=== PATIENT | male | born 1995 | race Caucasian/White ===

== ENCOUNTER 2017-10-10 06:19 | Emergency (ER) | payer MEDICARE, OTHER ==
[~2017-10-10] VITALS: Ht 180.3 cm; Wt 90.7 kg
--- OUTSIDE RECORDS SUMMARY | ~2017-10-10 | XMS ---
Demographics + + + | Address | [address] | | | [address] | | | [place] [address] | + + + | Preferred Language | Unknown | + + + | Marital Status | Unknown | + + + | Buddhism Affiliation | Unknown | + + + | Race | Unknown | + + + | Ethnic Group | Unknown | + + + Author + + + | Author | [facility] | + + + | Organization | [facility] | + + + | Address | 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 | | | Active | 74395785 | | | myelitis | | | | | | +---------+ + + +--------+ + + | Problem | Depression | | F32.9 | | Active | 143112280 | +---------+ + + +--------+ + + | 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 | 495221750 | | | my | | | | | | | | dependence | | | | | | +---------+ + + +--------+ + + | Problem | Diastolic | I10 | | | Active | 32644084 | | | hypertensi | | | | | | | | on | | | | | | +---------+ + + +--------+ + + | Problem | Dysautonom | G90.9 | | | Active | 35025726 | | | ia | | | | | | +---------+ + + +--------+ + + | Problem | ADHD | F90.9 | | | Active | 617006002 | | | (attention | | | | | | | | deficit | | | | | | | | hyperactiv | | | | | | | | ity | | | | | | | | disorder) | | | | | | +---------+ + + +--------+ + + | Problem | Marijuana | F12.10 | | | Active | 08771084 | | | use | | | | | | +---------+ + + +--------+ + + | Problem | Back pain | | M54.9 | | Active | 094354841 | +---------+ + + +--------+ + + | Problem | HTN | | I10 | | Active | 58441758 | | | (hypertens | | | | | | | | ion) | | | | | | +---------+ + + +--------+ + + | 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 | | | Active | 158451357 | +---------+ + + +--------+ + + | Problem | TRACHEOSTO | V44.0 | | | Active | 195389507 | | | MY STATUS | | | | | | +---------+ + + +--------+ + + | Problem | Previous | Z98.89 | | | Active | | | | back | | | | | | | | surgery | | | | | | +---------+ + + +--------+ + + | Problem | OTH NSP | 790.99 | | | Active | 75033225 | | | FINDING | | | | | | | | BLOOD | | | | | | +---------+ + + +--------+ + + | Problem | History of | Z87.898 | | | Active | | | | coma | | | | | | +---------+ + + +--------+ + + ALLERGIES Unknown Allergies SOCIAL HISTORY No smoking Hx information available PLAN OF CARE VITAL SIGNS MEDICATIONS Unknown Medications RESULTS No Results PROCEDURES No Known procedures IMMUNIZATIONS No Known Immunizations"
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
--- OUTSIDE RECORDS SUMMARY | ~2017-10-10 | XMS ---
Demographics + + + | Address | [address] | | | [address] | | | [place] [address] | + + + | Preferred Language | Unknown | + + + | Marital Status | Unknown | + + + | Islam Affiliation | Unknown | + + + | Race | Unknown | + + + | Ethnic Group | Unknown | + + + Author + + + | Author | [facility] | + + + | Organization | [facility] | + + + | Address | [address] | | | [place] [address] | + + + | Phone | | + + + Care Team Providers + + + + | Care Page Designer Name | Role | Phone | + + + + Unavailable | Unavailable | + + + + PROBLEMS +---------+ + + +--------+ + + | Type | Condition | ICD9-CM | [id number] | Onset | Condition | SNOMED | | | | Code | Code | Dates | Status | Code | +---------+ + + +--------+ + + | Problem | Depression | | F32.9 | | Active | [id number] | +---------+ + + +--------+ + + | Problem | ADHD | F90.9 | | | Active | 788756670 | | | (attention | | | | | | | | deficit | | | | | | | | hyperactiv | | | | | | | | ity | | | | | | | | disorder) | | | | | | +---------+ + + +--------+ + + | 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 | | | Active | 62962015 | | | myelitis | | | | | | +---------+ + + +--------+ + + | Problem | Low | E55.9 | | | Active | 06474180 | | | vitamin D | | | | | | | | level | | | | | | +---------+ + + +--------+ + + | 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 | 104836085 | | | my | | | | | | | | dependence | | | | | | +---------+ + + +--------+ + + | Problem | Back pain | | M54.9 | | Active | 360897962 | +---------+ + + +--------+ + + | Problem | Dysautonom | G90.9 | | | Active | 80741660 | | | ia | | | | | | +---------+ + + +--------+ + + | Problem | Diastolic | I10 | | | Active | 59433005 | | | hypertensi | | | | | | | | on | | | | | | +---------+ + + +--------+ + + | Problem | Marijuana | F12.10 | | | Active | 99689459 | | | use | | | | | | +---------+ + + +--------+ + + | Problem | TRACHEOSTO | V44.0 | | | Active | 925203530 | | | MY STATUS | | | | | | +---------+ + + +--------+ + + | 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 | | | Active | 959732930 | +---------+ + + +--------+ + + | Problem | Previous | Z98.89 | | | Active | | | | back | | | | | | | | surgery | | | | | | +---------+ + + +--------+ + + | Problem | OTH NSPCF | 790.99 | | | Active | 79699058 | | | FINDING | | | [...] | | I10 | | Active | 53066246 | | | (hypertens | | | | | | | | ion) | | | | | | +---------+ + + +--------+ + + | Problem | Anxiety | | F41.9 | | Active | 10168344 | +---------+ + + +--------+ + + ALLERGIES Unknown Allergies SOCIAL HISTORY No smoking Hx information available PLAN OF CARE VITAL SIGNS MEDICATIONS Unknown Medications RESULTS No Results PROCEDURES No Known procedures IMMUNIZATIONS No Known Immunizations"
--- OUTSIDE RECORDS SUMMARY | ~2017-10-10 | XMS ---
Demographics + + + | Address | [address] | | | [address] | | | [place] [address] | + + + | Preferred Language | Unknown | + + + | Marital Status | Unknown | + + + | Scientologist Affiliation | Unknown | + + + | Race | Unknown | + + + | Ethnic Group | Unknown | + + + Author + + + | Author | [facility] | + + + | Organization | [facility] | + + + | Address | 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 | 487975280 | | | my | | | | | | | | dependence | | | | | | +---------+ + + +--------+ + + | Problem | Marijuana | F12.10 | | | Active | 62948568 | | | use | | | | | | +---------+ + + +--------+ + + | Problem | ADHD | F90.9 | | | Active | 208974276 | | | (attention | | | | | | | | deficit | | | | | | | | hyperactiv | | | | | | | | ity | | | | | | | | disorder) | | | | | | +---------+ + + +--------+ + + | 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 | | | Active | 57179797 | | | myelitis | | | | | | +---------+ + + +--------+ + + | Problem | Back pain | | M54.9 | | Active | 042805297 | +---------+ + + +--------+ + + | Problem | Dysautonom | G90.9 | | | Active | 79704031 | | | ia | | | | | | +---------+ + + +--------+ + + | Problem | OTH NSPCF | 790.99 | | | Active | 74966077 | | | FINDING | | | | | | | | BLOOD | | | | | | +---------+ + + +--------+ + + | Problem | HTN | | I10 | | Active | 26365783 | | | (hypertens | | | | | | | | ion) | | | | | | +---------+ + + +--------+ + + | 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 | | | Active | 394644640 | +---------+ + + +--------+ + + | Problem | TRACHEOSTO | V44.0 | | | Active | 784107447 | | | MY STATUS | | [...] Wellbutrin | adverse | Drug Allergy | Dec, | Active | | | reaction | | | | + + + + +--------+ | environmental | Unknown | Non Drug | Dec, | Active | | | | Allergy | | | + + + + +--------+ | bee stings | Unknown | Non Drug | Dec, | Active | | | | Allergy | | | + + + + +--------+ SOCIAL HISTORY No smoking Hx information available PLAN OF CARE + +---------+ | Activity | Details | + +---------+ +---+ | | +---+ + + + | Follow Up | prn Reason:null | + + + VITAL SIGNS + + + + | Height | 70 in | 2017-01-02 | + + + + | Weight | 234 lbs | 2017-01-02 | + + + + | BMI | 33.57 kg/m2 | 2017-01-02 | + + + + | Temperature | 98.5 degrees Fahrenheit | 2017-01-02 | + + + + | Heart Rate | 74 /min | 2017-01-02 | + + + + | Blood pressure systolic | 140 mm Hg | 2017-01-02 | + + + + | Blood pressure diastolic | 94 mm Hg | 2017-01-02 | + + + + MEDICATIONS + [...] Orally | 1 | 24h | 04 May, | | 30 days | Active | [...] + +--------+ | Amoxicil | Orally | 11 mL | 12h | 05 Sam, | 15 Sam, | 10 days | Active | | kalyani-Pot | BID | | | 2017 | 2017 | | | | Clavulan | | | | | | | | | ate | | | | | | | | | 400-57 | | | | | | | | | MG/5ML | | | | | | | [...] 90 days | Active | | il 10 MG | Once a | | | 2016 | | | | | | day [...] +--------+ RESULTS No Results PROCEDURES + + + + + | Procedure | Date Ordered | Related Diagnosis | Body Site | + + + + + | Office Visit, Est | January 02, 2017 | | | | Pt., Level 3 | | | | + + + + + | [facility] MED/CURRENT | January 02, 2017 | | | | MED MERGE | | | | + + + + + | DOC MEDS VERIFIED | January 02, 2017 | | | | W/PT OR RE | | | | + + + + + IMMUNIZATIONS No Known Immunizations"
--- OUTSIDE RECORDS SUMMARY | ~2017-10-10 | XMS ---
Demographics + + + | Address | [address] | | | [address] | | | [place] [address] | + + + | Preferred Language | Unknown | + + + | Marital Status | Unknown | + + + | Sikh Affiliation | Unknown | + + + | Race | Unknown | + + + | Ethnic Group | Unknown | + + + Author + + + | Author | [facility] | + + + | Organization | [facility] | + + + | Address | [address] | | | [place] [address] | + + + | Phone | | + + + Care Team Providers + + + + | Care Hop Picker Name | Role | Phone | + + + + Unavailable | Unavailable | + + + + PROBLEMS +---------+ + + +--------+ + + | Type | Condition | ICD9-CM | [id number] | Onset | Condition | SNOMED | | | | Code | Code | Dates | Status | Code | +---------+ + + +--------+ + + | Problem | Depression | | F32.9 | | Active | [id number] | +---------+ + + +--------+ + + | Problem | ADHD | F90.9 | | | Active | 214029950 | | | (attention | | | | | | | | deficit | | | | | | | | hyperactiv | | | | | | | | ity | | | | | | | | disorder) | | | | | | +---------+ + + +--------+ + + | 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 | | | Active | 96143093 | | | myelitis | | | | | | +---------+ + + +--------+ + + | Problem | Low | E55.9 | | | Active | 34088710 | | | vitamin D | | | | | | | | level | | | | | | +---------+ + + +--------+ + + | 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 | 212790817 | | | my | | | | | | | | dependence | | | | | | +---------+ + + +--------+ + + | Problem | Back pain | | M54.9 | | Active | 558269871 | +---------+ + + +--------+ + + | Problem | Dysautonom | G90.9 | | | Active | 12455648 | | | ia | | | | | | +---------+ + + +--------+ + + | Problem | Diastolic | I10 | | | Active | 36865648 | | | hypertensi | | | | | | | | on | | | | | | +---------+ + + +--------+ + + | Problem | Marijuana | F12.10 | | | Active | 75552052 | | | use | | | | | | +---------+ + + +--------+ + + | Problem | TRACHEOSTO | V44.0 | | | Active | 811075539 | | | MY STATUS | | | | | | +---------+ + + +--------+ + + | 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 | | | Active | 724831111 | +---------+ + + +--------+ + + | Problem | Previous | Z98.89 | | | Active | | | | back | | | | | | | | surgery | | | | | | +---------+ + + +--------+ + + | Problem | OTH NSPCF | 790.99 | | | Active | 52511771 | | | FINDING | | | [...] | | I10 | | Active | 53845658 | | | (hypertens | | | | | | | | ion) | | | | | | +---------+ + + +--------+ + + | Problem | Anxiety | | F41.9 | | Active | 16776977 | +---------+ + + +--------+ + + ALLERGIES + + + + +--------+ | Substance | Reaction | Event Type | Date | Status | + + + + +--------+ | Wellbutrin | adverse | Drug Allergy | Feb, | Active | | | reaction | | | | + + + + +--------+ | environmental | Unknown | Non Drug | Feb, | Active | | | | Allergy | | | + + + + +--------+ | bee stings | Unknown | Non Drug | Feb, | Active | | | | Allergy | | | + + + + +--------+ SOCIAL HISTORY No smoking Hx information available PLAN OF CARE + +---------+ | Activity | Details | + +---------+ +---+ | | +---+ + + + | Follow Up | 2 Months Reason:null | + + + VITAL SIGNS + + + + | Height | 70 in | 2017-03-13 | + + + + | Weight | 219.6 lbs | 2017-03-13 | + + + + | BMI | 31.51 kg/m2 | 2017-03-13 | + + + + | Temperature | 97.6 degrees Fahrenheit | 2017-03-13 | + + + + | Heart Rate | 75 /min | 2017-03-13 | + + + + | Blood pressure systolic | 125 mm Hg | 2017-03-13 | + + + + | Blood pressure diastolic | 98 mm Hg | 2017-03-13 | + + + + MEDICATIONS + [...] HCl | daily | directed | | 2015 | | day(s) | | | 300 [...] Orally | 1 tablet | 24h | 14 Feb, | | 30 | Active | | il-Muir | Once a | | | 2016 | | day(s) | | | chloroth | day | | | | | | | | iazide | | | | | | | | | 20-12.5 | | | | | | [...] | 1 tablet | 24h | 26 Oct, | | 90 days | Active | [...] + + + + + +--------+ RESULTS + +--------+ + + | Name | Result | Date | Reference Range | + +--------+ + + | Phosphorus, Serum | | 2017-03-13 | | + +--------+ + + | Phosphorus, Serum | | | | + +--------+ + + | Magnesium, Serum | | 2017-03-13 | | + +--------+ + + | Magnesium, Serum | | | | + +--------+ + + | Vitamin D 25-OH | | 2017-03-13 | | + +--------+ + + | VITAMIN D 25-OH | | | | + +--------+ + + | CBC with | | 2017-03-13 | | | Differential Count | | | | + +--------+ + + PROCEDURES + + + + + | Procedure | Date Ordered | Related Diagnosis | Body Site | + + + + + | Office Visit, Est | Mar 13, 2017 | | | | Pt., Level 4 | | | | + + + + + | [facility] MED/CURRENT | Mar 13, 2017 | | | | MED MERGE | | | | + + + + + IMMUNIZATIONS No Known Immunizations"
--- OUTSIDE RECORDS SUMMARY | ~2017-10-10 | XMS ---
Demographics + + + | Address | [address] | | | [address] | | | [place] [address] | + + + | Preferred Language | Unknown | + + + | Marital Status | Unknown | + + + | Rastafari Affiliation | Unknown | + + + | Race | Unknown | + + + | Ethnic Group | Unknown | + + + Author + + + | Author | [facility] | + + + | Organization | [facility] | + + + | Address | 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 | | | | | | +---------+ + + +--------+ + + | Problem | Depression | | F32.9 | | Active | 428542691 | +---------+ + + +--------+ + + | 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 | 338087680 | | | my | | | | | | | | dependence | | | | | | +---------+ + + +--------+ + + | Problem | Diastolic | I10 | | | Active | 88792298 | | | hypertensi | | | | | | | | on | | | | | | +---------+ + + +--------+ + + | Problem | Dysautonom | G90.9 | | | Active | 59209079 | | | ia | | | | | | +---------+ + + +--------+ + + | Problem | ADHD | F90.9 | | | Active | 841299791 | | | (attention | | | | | | | | deficit | | | | | | | | hyperactiv | | | | | | | | ity | | | | | | | | disorder) | | | | | | +---------+ + + +--------+ + + | Problem | Marijuana | F12.10 | | | Active | 91234326 | | | use | | | | | | +---------+ + + +--------+ + + | Problem | Back pain | | M54.9 | | Active | 389164211 | +---------+ + + +--------+ + + | Problem | HTN | | I10 | | Active | 46108264 | | | (hypertens | | | | | | | | ion) | | | | | | +---------+ + + +--------+ + + | 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 | | | Active | 945073101 | +---------+ + + +--------+ + + | Problem | TRACHEOSTO | V44.0 | | | Active | 978850838 | | | MY STATUS | | | | | | +---------+ + + +--------+ + + | Problem | Previous | Z98.89 | | | Active | | | | back | | | | | | | | surgery | | | | | | +---------+ + + +--------+ + + | Problem | OT NSP | 790.99 | | | Active | 90618158 | | | FINDING | | | [...] + + + | Follow Up | 3 Months Reason:null | + + + VITAL SIGNS + + + + | Height | 70 in | 2017-01-09 | + + + + | Weight | 229.2 lbs | 2017-01-09 | + + + + | BMI | 32.88 kg/m2 | 2017-01-09 | + + + + | Temperature | 97.5 degrees Fahrenheit | 2017-01-09 | + + + + | Heart Rate | 81 /min | 2017-01-09 | + + + + | Blood pressure systolic | 131 mm Hg | 2017-01-09 | + + + + | Blood pressure diastolic | 91 mm Hg | 2017-01-09 | + + + + MEDICATIONS + [...] + | Office Visit, Est | January 09, 2017 | | | | Pt., Level 3 | | | | + + + + + | [facility] MED/CURRENT | January 09, 2017 | | | | MED MERGE | | | | + + + + + IMMUNIZATIONS No Known Immunizations"
--- OUTSIDE RECORDS SUMMARY | ~2017-10-10 | XMS ---
Demographics + + + | Address | [address] | | | [address] | | | [place] [address] | + + + | Preferred Language | Unknown | + + + | Marital Status | Unknown | + + + | Zoroastrianism Affiliation | Unknown | + + + | Race | Unknown | + + + | Ethnic Group | Unknown | + + + Author + + + | Author | [facility] | + + + | Organization | [facility] | + + + | Address | [address] | | | [place] [address] | + + + | Phone | | + + + Care Team Providers + + + + | Care Health Analyst Name | Role | Phone | + + + + Unavailable | Unavailable | + + + + PROBLEMS +---------+ + + +--------+ + + | Type | Condition | ICD9-CM | [id number] | Onset | Condition | SNOMED | | | | Code | Code | Dates | Status | Code | +---------+ + + +--------+ + + | Problem | Depression | | F32.9 | | Active | [id number] | +---------+ + + +--------+ + + | Problem | ADHD | F90.9 | | | Active | 921451498 | | | (attention | | | | | | | | deficit | | | | | | | | hyperactiv | | | | | | | | ity | | | | | | | | disorder) | | | | | | +---------+ + + +--------+ + + | 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 | | | Active | 55811469 | | | myelitis | | | | | | +---------+ + + +--------+ + + | Problem | Low | E55.9 | | | Active | 41354201 | | | vitamin D | | | | | | | | level | | | | | | +---------+ + + +--------+ + + | 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 | 723588479 | | | my | | | | | | | | dependence | | | | | | +---------+ + + +--------+ + + | Problem | Back pain | | M54.9 | | Active | 320282354 | +---------+ + + +--------+ + + | Problem | Dysautonom | G90.9 | | | Active | 47960058 | | | ia | | | | | | +---------+ + + +--------+ + + | Problem | Diastolic | I10 | | | Active | 02320070 | | | hypertensi | | | | | | | | on | | | | | | +---------+ + + +--------+ + + | Problem | Marijuana | F12.10 | | | Active | 61377360 | | | use | | | | | | +---------+ + + +--------+ + + | Problem | TRACHEOSTO | V44.0 | | | Active | 968149581 | | | MY STATUS | | | | | | +---------+ + + +--------+ + + | 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 | | | Active | 951503795 | +---------+ + + +--------+ + + | Problem | Previous | Z98.89 | | | Active | | | | back | | | | | | | | surgery | | | | | | +---------+ + + +--------+ + + | Problem | OTH NSPCF | 790.99 | | | Active | 49852150 | | | FINDING | | | [...] | | I10 | | Active | 49538272 | | | (hypertens | | | | | | | | ion) | | | | | | +---------+ + + +--------+ + + | Problem | Anxiety | | F41.9 | | Active | 74268927 | +---------+ + + +--------+ + + ALLERGIES Unknown Allergies SOCIAL HISTORY No smoking Hx information available PLAN OF CARE VITAL SIGNS MEDICATIONS Unknown Medications RESULTS No Results PROCEDURES No Known procedures IMMUNIZATIONS No Known Immunizations"
--- OUTSIDE RECORDS SUMMARY | ~2017-10-10 | XMS ---
Demographics + + + | Address | [address] | | | [address] | | | [place] [address] | + + + | Preferred Language | Unknown | + + + | Marital Status | Unknown | + + + | Anabaptism Affiliation | Unknown | + + + | Race | Unknown | + + + | Ethnic Group | Unknown | + + + Author + + + | Author | [facility] | + + + | Organization | [facility] | + + + | Address | [address] | | | [place] [address] | + + + | Phone | | + + + Care Team Providers + + + + | Care Bicycle Racer Name | Role | Phone | + + + + Unavailable | Unavailable | + + + + PROBLEMS + + + + + + + + | Type | Condition | ICD9-CM | [id number] | Onset | Condition | SNOMED | | | | Code | Code | Dates | Status | Code | + + + + + + + + | Problem | Previous | Z98.89 | | | Active | | | | back | | | | | | | | surgery | | | | | | + + + + + + + + | Problem | Anxiety | | F41.9 | | Active | 38860770 | + + + + + + + + | Problem | History of | Z87.898 | | | Active | | | | coma | | | | | | + + + + + + + + | Problem | Marijuana | F12.10 | | | Active | 77995189 | | | use | | | | | | + + + + + + + + | Problem | Back pain | | M54.9 | | Active | 895636931 | + + + + + + + + | 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 | | | Active | 09115428 | | | myelitis | | | | | | + + + + + + + + | Problem | Depression | | F32.9 | | Active | 178381439 | + + + + + + + + | Problem | Dysautonom | G90.9 | | | Active | 81772754 | | | ia | | | | | | + + + + + + + + | Problem | ADHD | F90.9 | | | Active | 631780075 | | | (attention | | | | | | | | deficit | | | | | | | | hyperactiv | | | | | | | | ity | | | | | | | | disorder) | | | | | | + + + + + + + + | Problem | TRACHEOSTO | V44.0 | | | Active | 956534715 | | | MY STATUS | | | | | | + + + + + + + + | Problem | OTH NSPCF | 790.99 | | | Active | 05729928 | | | FINDING | | | | | | | | BLOOD | | | | | | + + + + + + + + | Problem | HTN | | I10 | | Active | 57974005 | | | (hypertens | | | | | | | | ion) | | | | | | + + + + + + + + | Assessment | HTN | | I10 | 27 Apr, | Active | 52189210 | | | (hypertens | | | 2016 | | | | | ion) | | | | | | + + + + + + + + | 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 | | | Active | 280952963 | + + + + + + + + ALLERGIES + + + + +--------+ | Substance | Reaction | Event Type | Date | Status | + + + + +--------+ | Wellbutrin | adverse | Drug Allergy | Oct, | Active | | | reaction | | | | + + + + +--------+ | environmental | Unknown | Non Drug | Oct, | Active | | | | Allergy | | | + + + + +--------+ | bee stings | Unknown | Non Drug | Oct, | Active | | | | Allergy | | | + + + + +--------+ SOCIAL HISTORY No smoking Hx information available PLAN OF CARE VITAL SIGNS + + + + | Height | 70 in | 2016-11-24 | + + + + | Weight | 234 lbs | 2016-11-24 | + + + + | BMI | 33.57 kg/m2 | 2016-11-24 | + + + + | Temperature | 97.5 degrees Fahrenheit | 2016-11-24 | + + + + | Heart Rate | 100 /min | 2016-11-24 | + + + + | Blood pressure systolic | 144 mm Hg | 2016-11-24 | + + + + | Blood pressure diastolic | 93 mm Hg | 2016-11-24 | + + + + MEDICATIONS + [...] MG | daily | capsule | | 2016 | | | | + + + [...] + + | Office Visit, Est | November 24, 2016 | | | | Pt., Level 3 | | | | + + + + + | [facility] MED/CURRENT | November 24, 2016 | | | | MED MERGE | | | | + + + + + IMMUNIZATIONS No Known Immunizations"
[2017-10-10] MEDS ORDERED: LISINOPRIL-HCT1 EACH PO (06:45)
[2017-10-10] MEDS ORDERED: HYDROCODON-ACE1 EAC8 PO (07:20)
== END 2017-10-10 07:47 | disposition home or self-care (01) ==
LOC: ED 06:19
DX: S86.912A Strain of unspecified muscle(s) and tendon(s) at lower leg level, left leg, initial encounter (principal); Z87.891 Personal history of nicotine dependence; Z88.8 Allergy status to other drugs, medicaments and biological substances; Z79.899 Other long term (current) drug therapy; X58.XXXA Exposure to other specified factors, initial encounter; Y93.41 Activity, dancing
CPT/HCPCS: 73560; 99283

== ENCOUNTER 2018-04-22 18:59 | Emergency (ER) | payer MEDICARE, OTHER ==
[~2018-04-22] VITALS: Ht 180.3 cm; Wt 82.1 kg
[~2018-04-22 18:59] MED LIST: HYDROCODON-ACE1 EAC8 PO; LISINOPRIL-HCT1 EACH PO
[2018-04-22] MEDS ORDERED: BUSPIRONE HCL5 MG PO (19:28)
[2018-04-22] MEDS ORDERED: SERTRALINE HCL50 MG PO (19:28)
[2018-04-22] MEDS ORDERED: CIPRO500 MG PO (19:28)
[2018-04-22] MEDS ORDERED: HYDROMORPHONE HC2 MG PO (19:29)
[2018-04-22] MEDS ORDERED: DULOXETINE HCL30 MG PO (19:29)
--- OUTSIDE RECORDS SUMMARY | 2018-04-22 20:31 | XMS | Clinical Summary ---
Demographics + + + | Address | [address] [facility] [address] | | | [place] [address] | + + + | Home Phone | | + + + | Preferred Language | Unknown | + + + | Marital Status | Single | + + + | Pentecostalism Affiliation | Unknown | + + + | Race | Unknown | + + + | Ethnic Group | Unknown | + + + Author + + + | Author | [facility] | + + + | Organization | [facility] | + + + | Address | Unknown | + + + | Phone | Unavailable | + + + Support + + +---------+ + | Name | Relationship | Address | Phone | + + +---------+ + | Mary Fitzgerald | ECON | Unknown | | + + +---------+ + Care Team Providers + +------+ + | Care Lumber Piler Name | Role | Phone | + +------+ + | Mark Marino MD | PP | | + +------+ + Allergies No Known Allergies Current Medications + + +---------+---------+------+------+-------+ | Prescription | Sig. | Disp. | Refills | Star | End | Statu | | | | | | t | Date | s | | | | | | Date | | | + + +---------+---------+------+------+-------+ | albuterol | Take 2.5 mg by | | | | | Activ | | (PROVENTIL) (2.5 | nebulization every 6 | | | | | e | | MG/3ML) 0.083% | (six) hours as | | | | | | | nebulizer solution | needed for Wheezing. | | | | | | + + +---------+---------+------+------+-------+ | budesonide | Take 0.5 mg by | | | | | Activ | | (PULMICORT) 0.5 | nebulization 2 (two) | | | | | e | | MG/2ML nebulizer | times daily. | | | | | | | suspension | | | | | | | + + +---------+---------+------+------+-------+ | DULoxetine | Take 60 mg by mouth | | | | | Activ | | (CYMBALTA) 30 MG | daily. | | | | | e | | capsule | | | | | | | + + +---------+---------+------+------+-------+ | EPINEPHrine 0.3 | Inject 0.3 mg into | | | | | Activ | | MG/0.3ML | the muscle as needed | | | | | e | | auto-injector | for Allergic | | | | | | | | Reaction or | | | | | | | | Anaphylaxis. | | | | | | + + +---------+---------+------+------+-------+ | | Take 1 tablet by | | | | | Activ | | lisinopril-hydrochlo | mouth daily. | | | | | e | | rothiazide | | | | | | | | (ZESTORETIC) 20-12.5 | | | | | | | | MG per tablet | | | | | | | + + +---------+---------+------+------+-------+ | loratadine | Take 10 mg by mouth | | | | | Activ | | (CLARITIN) 10 MG | daily. | | | | | e | | tablet | | | | | | | + + +---------+---------+------+------+-------+ | ranitidine | Take 300 mg by mouth | | | | | Activ | | (ZANTAC) 300 MG | daily as needed. | | | | | e | | tablet | | | | | | | + + +---------+---------+------+------+-------+ | Sodium Chloride | Inhale into the | | | | | Activ | | (HYPERSAL) 3.5 % | lungs. | | | | | e | | NEBU | | | | | | | + + +---------+---------+------+------+-------+ | ALPRAZolam (XANAX) | Take 1 tablet by | 30 | 0 | 09/1 | | Activ | | 0.5 MG tablet | mouth 3 (three) | tablet | | 2/20 | | e | | | times daily as | | | 18 | | | | | needed for Anxiety. | | | | | | + + +---------+---------+------+------+-------+ | ipratropium | Inhale 2 puffs into | 1 | 12 | 09/1 | 09/1 | Activ | | (ATROVENT HFA) 17 | the lungs 2 (two) | Inhaler | | 2/20 | 2/20 | e | | MCG/ACT inhaler | times daily. | | | 18 | 19 | | + + +---------+---------+------+------+-------+ | HYDROmorphone | Take 1 tablet by | 30 | 0 | 09/1 | | Activ | | (DILAUDID) 2 MG | mouth every 6 (six) | tablet | | 2/20 | | e | | tablet | hours as needed for | | | 18 | | | | | Pain. | | | | | | + + +---------+---------+------+------+-------+ | predniSONE | Take 2 tablets by | 20 | 0 | 03/31 | 03/31 | Expir | | (DELTASONE) 20 MG | mouth daily for 5 | tablet | | 09/19 | 02/16 | ed | | tablet | doses. | | | 18 | 18 | | + + +---------+---------+------+------+-------+ | azithromycin | Take 1 tablet by | 2 | 0 | 03/31 | 03/31 | Expir | | (ZITHROMAX) 500 MG | mouth daily for 2 | tablet | | 09/19 | 11/17 | ed | | tablet | doses. | | | 18 | 18 | | + + +---------+---------+------+------+-------+ Active Problems + + + | Problem | Noted Date | + + + | Acute respiratory failure with hypoxia (HCC) | 04/09/2018 | + + + | Pneumonia due to infectious organism | 04/09/2018 | + + + | Transverse myelitis (HCC) | | + + + | Dysautonomia | | + + + | Hemiparesis (HCC) | | + + + + + | Overview: Left arm flaccid, weaker left leg due to transverse | | myelitis | + + + +---+ | Anxiety | | + +---+ | Diaphragm paralysis | | + +---+ + + | Overview: Left | + + + +---+ | HTN (hypertension) | | + +---+ | Chronic respiratory failure (HCC) | | + +---+ | Dependence on home ventilator | | + +---+ | Scoliosis | | + +---+ | Bronchiectasis (HCC) | | + +---+ | Sleep apnea | | + +---+ Encounters +--------+ + + + + | Date | Type | Specialty | Care Team | Description | +--------+ + + + + | 04/09/ | Hospital | | Clau Wade DO | | | 2018 - | Encounter | | | | | | | | | | | 04/11/ | | | | | | 2018 | | | | | +--------+ + + + + +---+ + | | Discharge | | | Summaries | | | - | | | Darshan, | | | Fred Ching, | | | MD - | | | 04/11/2018 | | | 1:51 PM | | | PDT | | | Formatting | | | of this | | | note may be | | | different | | | from the | | | original.[facility] | | | ce: | | | 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 | | | Discharge | | | SummaryStep | | | hen M | | | Ward | | | y.o.Date of | | | Admission: | | | | | | 04/09/2018Da | | | te of | | | Discharge: | | | 04/11/18Tre | | | atment | | | Team: | | | Consulting | | | Physician: | | | Tobi | | | Chirag Fernandez | | | César, | | | MDAdmitting | | | Provider: | | | Clau | | | Mauro, | | | DOADMITTING | | | | | | DIAGNOSESPr | | | incipal | | | Problem: | | | Acute | | | respiratory | | | failure | | | with | | | hypoxia | | | (HCC)Active | | | Problems: | | | Transverse | | | myelitis | | | (HCC) | | | Dysautonomi | | | a | | | Hemiparesis | | | (HCC) | | | Anxiety | | | Diaphragm | | | paralysis | | | HTN | | | (hypertensi | | | on) | | | Chronic | | | respiratory | | | failure | | | (HCC) | | | Dependence | | | on home | | | ventilator | | | Scoliosis | | | | | | Bronchiecta | | | sis ([facility]) | | | Sleep apnea | | | Pneumonia | | | due to | | | infectious | | | organismRes | | | olved | | | Problems: | | | * No | | | resolved | | | hospital | | | problems. | | | *DISCHARGE | | | DIAGNOSESPr | | | incipal | | | Problem: | | | Acute | | | respiratory | | | failure | | | with | | | hypoxia | | | (HCC)Active | | | Problems: | | | Transverse | | | myelitis | | | (HCC) | | | Dysautonomi | | | a | | | Hemiparesis | | | (HCC) | | | Anxiety | | | Diaphragm | | | paralysis | | | HTN | | | (hypertensi | | | on) | | | Chronic | | | respiratory | | | failure | | | (HCC) | | | Dependence | | | on home | | | ventilator | | | Scoliosis | | | | | | Bronchiecta | | | sis ([facility]) | | | Sleep apnea | | | Pneumonia | | | due to | | | infectious | | | organismRes | | | olved | | | Problems: | | | * No | | | resolved | | | hospital | | | problems. | | | *BRIEF | | | HISTORY OF | | | PRESENTATIO | | | NThe | | | patient is | | | a 22 | | | y.o. male | | | with | | | significant | | | past | | | medical | | | history of | | | transverse | | | myelitis | | | with Left | | | arm | | | paresis, | | | dysautonomi | | | a, chronic | | | respiratory | | | failure | | | with long | | | term | | | tracheostom | | | y tube | | | (Bivona 5.0 | | | cuffless) | | | with home | | | ventilator | | | use at | | | night or | | | when he is | | | tired who | | | presents | | | with worse | | | wyatt | | | dyspnea. He | | | reports | | | having to | | | stay on his | | | ventilator | | | for over a | | | week with | | | increasing | | | dyspnea and | | | coughing, | | | thick | | | pulmonary | | | secretions | | | that have | | | been hard | | | to suction | | | out, 1 day | | | of chills | | | with | | | rigors, | | | mild | | | headache | | | and poor | | | appetite | | | for 2 days. | | | He | | | describes | | | some | | | burning | | | discomfort | | | in his mid | | | chest at | | | times and | | | that he was | | | suctioning | | | up a | | | little | | | blood | | | intermitten | | | tly when he | | | suctioned | | | down his | | | trachea. He | | | feels like | | | it has | | | been harder | | | to exhale | | | than get a | | | breath. He | | | was using | | | nebulized | | | albuterol | | | more at | | | home but it | | | was not | | | helping. He | | | had not | | | been on | | | steroids. | | | He briefly | | | felt a | | | little | | | better a | | | few days | | | before | | | presentatio | | | n after he | | | took a | | | Z-chaz but | | | had not | | | been able | | | to come off | | | of the | | | ventilator. | | | He | | | presented | | | [facility] ED [facility] and | | | was given 3 | | | albuterol | | | neb | | | treatments, | | | | | | azithromyci | | | n, | | | ceftriaxone | | | , Ativan, | | | fentanyl | | | and | | | Toradol.He | | | denies | | | nausea, | | | vomiting, | | | diarrhea, | | | myalgias, | | | fevers, | | | rash. He | | | reports | | | having | | | terrible | | | environment | | | al | | | allergies | | | but had not | | | noted any | | | specific | | | new | | | symptoms of | | | | | | rhinorrhea, | | | ear pain, | | | sore | | | throat. He | | | is able to | | | talk while | | | on the | | | vent. His | | | only other | | | complaint | | | on arrival | | | is of pain | | | in his back | | | "from the | | | rods in my | | | back and | | | the drive | | | over". | | | HOSPITAL | | | [facility] | | | timeline: | | | 04/09: | | | Admitted to | | | ICU and pt | | | kept on MV | | | | | | 04/10: | | | Remains in | | | ICU. Much | | | better. | | | Able to | | | tolerate | | | being of | | | the vent | | | momentarily | | | and off | | | dex. | | | | | | 04/11: | | | Pt remains | | | stable and | | | feeling | | | better | | | today on | | | minimal | | | vent | | | settings. | | | PAST | | | MEDICAL | | | HISTORYPast | | | Medical | | | History | | | Diagnosis | | | Date | | | Acid | | | reflux | | | ADHD | | | Allergic | | | rhinitis | | | | | | Anxiety | | | | | | | | | Bronchiecta | | | sis (HCC) | | | | | | Chronic | | | respiratory | | | failure | | | (HCC) | | | | | | Dependence | | | on home | | | ventilator | | | | | | Diaphragm | | | paralysis | | | Left | | | | | | Dysautonomi | | | a | | | Eczema | | | | | | | | | Environment | | | al | | | allergies | | | | | | | | | Hemiparesis | | | (HCC) | | | Left arm | | | flaccid, | | | weaker left | | | leg due to | | | transverse | | | myelitis | | | | | | HTN | | | (hypertensi | | | on) | | | Kidney | | | stones | | | 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 | | | 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 | | | | | | | | | Osteoporosi | | | s | | | Scoliosis | | | | | | Sleep | | | apnea | | | | | | Transverse | | | myelitis | | | (HCC) PAST | | | SURGICAL | | | HISTORYPast | | | Surgical | | | History | | | Procedure | | | Laterality | | | Date | | | BACK | | | SURGERY | | | Paolo | | | trisha | | | placement | | | T5-L4 | | | DIAPHRAGM | | | PLICATION | | | | | | | | | GASTROSTOMY | | | TUBE | | | PLACEMENT | | | 2007 | | | subsequentl | | | y removed | | | | | | | | | TRACHEOSTOM | | | Y TUBE | | | PLACEMENT | | | 2007 | | | DISCHARGE | | | MEDS | | | Medication | | | List START | | | taking | | | these | | | medications | | | | | | ALPRAZolam | | | 0.5 MG | | | tabletQTY: | | | 30 | | | tabletRefil | | | ls: | | | 0Commonly | | | known as: | | | XANAXTake 1 | | | tablet by | | | mouth 3 | | | (three) | | | times daily | | | as needed | | | for | | | Anxiety. | | | azithromyci | | | n 500 MG | | | tabletQTY: | | | 2 | | | tabletRefil | | | ls: | | | 0Commonly | | | known as: | | | ZITHROMAXTa | | | ke 1 tablet | | | by mouth | | | daily for 2 | | | doses. | | | HYDROmorpho | | | ne 2 MG | | | tabletQTY: | | | 30 | | | tabletRefil | | | ls: | | | 0Commonly | | | known as: | | | DILAUDIDTak | | | e 1 tablet | | | by mouth | | | every 6 | | | (six) hours | | | as needed | | | for Pain. | | | ipratropium | | | 17 MCG/ACT | | | | | | inhalerQTY: | | | 1 | | | InhalerRefi | | | lls: | | | 12Commonly | | | known as: | | | ATROVENT | | | HFAInhale 2 | | | puffs into | | | the lungs | | | 2 (two) | | | times | | | daily. | | | predniSONE | | | 20 MG | | | tabletQTY: | | | 20 | | | tabletRefil | | | ls: | | | 0Commonly | | | known as: | | | DELTASONETa | | | ke 2 | | | tablets by | | | mouth daily | | | for 5 | | | doses. | | | CONTINUE | | | taking | | | these | | | medications | | | albuterol | | | (2.5 | | | MG/3ML) | | | 0.083% | | | nebulizer | | | solutionRef | | | ills: | | | 0Commonly | | | known as: | | | PROVENTIL | | | budesonide | | | 0.5 MG/2ML | | | nebulizer | | | suspensionR | | | efills: | | | 0Commonly | | | known as: | | | PULMICORT | | | DULoxetine | | | 30 MG | | | capsuleRefi | | | lls: | | | 0Commonly | | | known as: | | | CYMBALTA | | | EPINEPHrine | | | 0.3 | | | MG/0.3ML | | | auto-inject | | | orRefills: | | | 0 HYPERSAL | | | 3.5 % | | | NebuRefills | | | : 0Generic | | | drug: | | | Sodium | | | Chloride | | | lisinopril- | | | hydrochloro | | | thiazide | | | 20-12.5 MG | | | per | | | tabletRefil | | | ls: | | | 0Commonly | | | known as: | | | ZESTORETIC | | | loratadine | | | 10 MG | | | tabletRefil | | | ls: | | | 0Commonly | | | known as: | | | CLARITIN | | | ranitidine | | | 300 MG | | | tabletRefil | | | ls: | | | 0Commonly | | | known as: | | | ZANTAC You | | | might also | | | be taking | | | other | | | medications | | | not listed | | | above. If | | | you have | | | questions | | | about any | | | of your | | | other | | | medications | | | , talk to | | | the person | | | who | | | prescribed | | | them or | | | your | | | Primary | | | Care | | | Provider. | | | Where to | | | Get Your | | | Medications | | | You can | | | get these | | | medications | | | from any | | | pharmacy | | | Bring a | | | paper | | | prescriptio | | | n for each | | | of these | | | medications | | | | | | ALPRAZolam | | | 0.5 MG | | | tablet | | | azithromyci | | | n 500 MG | | | tablet | | | HYDROmorpho | | | ne 2 MG | | | tablet | | | ipratropium | | | 17 MCG/ACT | | | inhaler | | | predniSONE | | | 20 MG | | | tablet | | | DISCHARGE | | | EXAMEXAM | | | GEN: awake | | | , alert, | | | oriented | | | x3, sitting | | | in a chair | | | ,NAD, | | | scoliosis | | | notedNEURO: | | | PERRLA, | | | EOMI, | | | fairly | | | normal | | | vocalizatio | | | n with | | | trach on | | | vent | | | (cuffless | | | trach) no | | | facial | | | asymmetry, | | | moves R UE | | | and b/l LEs | | | well, | | | flaccid L | | | arm/hand | | | chronically | | | G | | | CS: 15HEEN | | | T: sclerae | | | clear, | | | nonicteric, | | | oral mmm, | | | pink, no | | | exudates | | | NECK: | | | supple, | | | trachea | | | midline | | | with 5.0 | | | Bivona | | | cuffless | | | trach with | | | clean trach | | | | | | tiesCV: RR | | | R, S1/S2, | | | no murmur, | | | rub or | | | gallop, | | | peripheral | | | pulses | | | palpable, | | | cap refill | | | briskLUNGS: | | | coarse | | | rhonchi b/ | | | l, no | | | crackles or | | | | | | wheezingABD | | | : soft, | | | non | | | distended, | | | non tender | | | to | | | palpationEX | | | TR: no | | | edema, | | | clubbing or | | | | | | cyanosis,SK | | | IN: warm, | | | dry, no | | | mottling; | | | mild | | | erythema | | | over | | | shoulders/u | | | pper outer | | | arms with | | | palpable | | | follicular | | | rash | | | (chronic | | | keratosis | | | pilaris | | | type | | | rash)LINES/ | | | TUBES: PIV | | | sMalcolm | | | Jacqu[place], | | | [id number] | [address], [place] | | | [phone] | | | n [place] | | | [phone] | | | [phone] | | | lm | | | [place], | | | [id number] | | [address], [address] | | | [address] | | | n [place] | | | [phone] | | | [phone] | | | ule an | | | appointment | | | as soon as | | | possible | | | for a visit | | | in 2 | | | daysDisposi | | | tion: | | | Stable to | | | be | | | discharged | | | home.Instru | | | ctions to | | | patient | | | hiv/aids care nurse: | | | Please | | | monitor | | | vitals and | | | pulse | | | oximetry at | | | least | | | twice daily | | | for 5 | | | days. | | | Please | | | provide one | | | on one | | | care for | | | ambulation, | | | feeding | | | and other | | | ADL for 5 | | | days. | | | Please | | | provide one | | | on one | | | care until | | | further | | | evaluated | | | by pt's | | | PCP. | | | Please call | | | EMS if | | | symptoms | | | worsen or | | | resume.Cond | | | ition on | | | Discharge: | | | stableCode | | | Status: | | | Full | | | CodePrimary | | | Care | | | Physician: | | | MARK | | | JACQUELINE*Pl | | | ease bill | | | 80 minutes | | | of critical | | | care time | | | spent | | | evaluating | | | the | | | patient, | | | reviewing | | | the data | | | and | | | formulating | | | a plan | | | exclusive | | | of all | | | other | | | procedures. | | | Fred C | | | Kantamneni, | | | | | | MD04/11/2018 | +---+ + +--------+ +---+ +------+ | 04/08/ | Hospital | | See, Medical | Pain | | 2018 | Encounter | | Record | | +--------+ +---+ +------+ | 04/08/ | Ancillary | | See, Medical | Pain | | 2018 | Orders | | Record | | +--------+ +---+ +------+ from Last 3 Months Social History + +-------+ +--------+------+ | Tobacco Use | Types | Packs/Day | Years | Date | | | | | Used | | + +-------+ +--------+------+ | Never Smoker | | | | | + +-------+ +--------+------+ + + +---------+ + | Alcohol Use | Drinks/We | oz/Week | Comments | | | ek | | | + + +---------+ + | Yes | | | rare | + + +---------+ + + + + | Sex Assigned at | Date Recorded | | | | + + + | Not on file | | + + + Last Filed Vital Signs + + + + | Vital Sign | Reading | Time Taken | + + + + | Blood Pressure | 133/80 | 04/11/2018 2:00 PM PDT | + + + + | Pulse | 80 | 04/11/2018 2:00 PM PDT | + + + + | Temperature | 37.2 C (99 F) | 04/11/2018 12:00 PM PDT | + + + + | Respiratory Rate | 12 | 04/11/2018 10:55 AM PDT | + + + + | Oxygen Saturation | 94% | 04/11/2018 2:00 PM PDT | + + + + | Inhaled Oxygen | - | - | | Concentration | | | + + + + | Weight | 86.8 kg (191 lb 6.1 | 04/09/2018 4:29 AM PDT | | | oz) | | + + + + | Height | 180.3 cm (5' 10.98") | 04/09/2018 8:00 PM PDT | + + + + | Body Mass Index | 26.7 | 04/09/2018 4:29 AM PDT | + + + + Plan of Treatment Not on file Procedures + +--------+ + + + | Procedure Name | Priori | Date/Time | Associated Diagnosis | Comments | | | ty | | | | + +--------+ + + + | POCT GLUCOSE | Routin | 04/11/2018 | | Results for this | | | e | 12:44 PM | | procedure are in the | | | | PDT | | results section. | + +--------+ + + + | CBC W/AUTO DIFF | Routin | 04/11/2018 | | Results for this | | (REFLEX TO MANUAL) | e | 4:17 AM | | procedure are in the | | | | PDT | | results section. | + +--------+ + + + | BASIC METABOLIC | Routin | 04/11/2018 | | Results for this | | PANEL | e | 4:17 AM | | procedure are in the | | | | PDT | | results section. | + +--------+ + + + | PHOSPHOROUS | Routin | 04/11/2018 | | Results for this | | | e | 4:17 AM | | procedure are in the | | | | PDT | | results section. | + +--------+ + + + | MAGNESIUM | Routin | 04/11/2018 | | Results for this | | | e | 4:17 AM | | procedure are in the | | | | PDT | | results section. | + +--------+ + + + | XR CHEST 1 VIEW | STAT | 04/10/2018 | | Results for this | | | | 3:33 PM | | procedure are in the | | | | PDT | | results section. | + +--------+ + + + | HEPATIC FUNCTION | Routin | 04/10/2018 | | Results for this | | PANEL | e | 3:53 AM | | procedure are in the | | | | PDT | | results section. | + +--------+ + + + | CBC W/AUTO DIFF | Routin | 04/10/2018 | | Results for this | | (REFLEX TO MANUAL) | e | 3:53 AM | | procedure are in the | | | | PDT | | results section. | + +--------+ + + + | BASIC METABOLIC | Routin | 04/10/2018 | | Results for this | | PANEL | e | 3:53 AM | | procedure are in the | | | | PDT | | results section. | + +--------+ + + + | PHOSPHOROUS | Routin | 04/10/2018 | | Results for this | | | e | 3:53 AM | | procedure are in the | | | | PDT | | results section. | + +--------+ + + + | MAGNESIUM | Routin | 04/10/2018 | | Results for this | | | e | 3:53 AM | | procedure are in the | | | | PDT | | results section. | + +--------+ + + + | SPUTUM CULT W/ GRAM | Timed | 04/09/2018 | | Results for this | | STAIN | | 11:46 PM | | procedure are in the | | | | PDT | | results section. | + +--------+ + + + | POTASSIUM | LASHELL | 04/09/2018 | | Results for this | | | | 5:09 PM | | procedure are in the | | | | PDT | | results section. | + +--------+ + + + | RESPIRATORY | STAT | 04/09/2018 | | Results for this | | FILMARRAY | | 10:41 AM | | procedure are in the | | | | PDT | | results section. | + +--------+ + + + | POC ARTERIAL BLOOD | Routin | 04/09/2018 | | Results for this | | GAS | e | 7:20 AM | | procedure are in the | | | | PDT | | results section. | + +--------+ + + + | BLOOD CULTURE, SET 2 | Timed | 04/09/2018 | | Results for this | | | | 6:16 AM | | procedure are in the | | | | PDT | | results section. | + +--------+ + + + | MRSA BY PCR | Routin | 04/09/2018 | | Results for this | | | e | 5:40 AM | | procedure are in the | | | | PDT | | results section. | + +--------+ + + + | BLOOD CULTURE, SET 1 | Timed | 04/09/2018 | | Results for this | | | | 5:33 AM | | procedure are in the | | | | PDT | | results section. | + +--------+ + + + | LACTIC ACID, PLASMA | STAT | 04/09/2018 | | Results for this | | | | 5:18 AM | | procedure are in the | | | | PDT | | results section. | + +--------+ + + + | PROCALCITONIN | STAT | 04/09/2018 | | Results for this | | | | 5:17 AM | | procedure are in the | | | | PDT | | results section. | + +--------+ + + + | BASIC METABOLIC | STAT | 04/09/2018 | | Results for this | | PANEL | | 5:17 AM | | procedure are in the | | | | PDT | | results section. | + +--------+ + + + | CBC W/AUTO DIFF | STAT | 04/09/2018 | | Results for this | | (REFLEX TO MANUAL) | | 5:17 AM | | procedure are in the | | | | PDT | | results section. | + +--------+ + + + | ABG DRAW | Routin | 04/09/2018 | | | | | e | 4:36 AM | | | | | | PDT | | | + +--------+ + + + | POCT GLUCOSE | Routin | 04/09/2018 | | Results for this | | | e | 4:30 AM | | procedure are in the | | | | PDT | | results section. | + +--------+ + + + | XR CHEST 1 VIEW | Routin | 04/08/2018 | Pain | Results for this | | | e | 9:42 PM | | procedure are in the | | | | PDT | | results section. | + +--------+ + + + from Last 3 Months Results POCT glucose (04/11/2018 12:44 PM)Only the most recent of 2 results within the time period is included. + + + + + | Component | Value | Ref Range | Performed At | + + + + + | GLUCOSE,POC SCREEN | 107 (H)Comment: Testing | 65 - 99 mg/dL | [facility] | | | performed at [facility] [place];[address] | | | [address];[place], [place] | | | | | [id number] | | | + + + + + + + + + + | Performing | Address | City/State/Zipcode | Phone Number | | Organization | | | | + + + + + | [facility] | [address] [facility] [facility] | [place] [address] | | + + + + + CBC w/auto diff (reflex to manual) (04/11/2018 4:17 AM)Only the most recent of 3 results w brynnin the time period is included. + + + + + | Component | Value | Ref Range | Performed At | + + + + + | WBC | 17.56 (H) | 3.80 - 11.00 K/uL | [facility] | | | | | [facility] | + + + + + | RBC | 4.60 | 4.20 - 5.70 M/uL | [facility] | | | | | [facility] | + + + + + | HGB | 13.4 | 13.2 - 17.0 g/dL | [facility] | | | | | [facility] | + + + + + | HCT | 38.0 (L) | 39.0 - 50.0 % | [facility] | | | | | [facility] | + + + + + | MCV | 82.6 | 80.0 - 100.0 fl | [facility] | | | | | [facility] | + + + + + | MCH | 29.1 | 27.0 - 34.0 pg | [facility] | | | | | [facility] | + + + + + | MCHC | 35.2 | 32.0 - 35.5 g/dL | [facility] | | | | | [facility] | + + + + + | RDW SD | 41.1 | 37 - 53 fl | [facility] | | | | | [facility] | + + + + + | PLT | 254 | 150 - 400 K/uL | [facility] | | | | | [facility] | + + + + + | MPV | 7.7 | fl | [facility] | | | | | [facility] | + + + + + | DIFF TYPE | AUTOMATED | | [facility] | | | | | [facility] | + + + + + | NEUTROPHILS | 83.68 | % | [facility] | | | | | [facility] | + + + + + | LYMPHOCYTES | 8.65 | % | [facility] | | | | | LABORATORY | + + + + + | MONOCYTES | 7.63 | % | [facility] | | | | | LABORATORY | + + + + + | EOSINOPHILS | 0.00 | % | [facility] | | | | | LABORATORY | + + + + + | BASOPHILS | 0.04 | % | [facility] | | | | | LABORATORY | + + + + + | NEUTROPHILS ABS | 14.69 (H) | 1.90 - 7.40 K/uL | [facility] | | | | | LABORATORY | + + + + + | LYMPHOCYTES ABS | 1.52 | 1.00 - 3.90 K/uL | [facility] | | | | | LABORATORY | + + + + + | MONOCYTES ABS | 1.34 (H) | 0.00 - 0.80 K/uL | [facility] | | | | | LABORATORY | + + + + + | EOSINOPHILS ABS | 0.00 | 0.00 - 0.50 K/uL | [facility] | | | | | LABORATORY | + + + + + | BASOPHILS ABS | 0.01Comment: Testing | 0.00 - 0.10 K/uL | [facility] | | | performed at [facility], [address] | | LABORATORY | | | [facility], | | | | | [place] [address] | | | + + + + + + + | Specimen | + + | Blood | + + + + + + + | Performing | Address | City/State/Zipcode | Phone Number | | Organization | | | | + + + + + | [facility] | [address] [place] [address] | [place] [address] | [phone] | | LABORATORY | [address] | | | + + + + + Phosphorus (04/11/2018 4:17 AM)Only the most recent of 2 results within the time period is included. + + + + + | Component | Value | Ref Range | Performed At | + + + + + | PHOSPHORUS | 3.5Comment: Testing | 2.3 - 4.8 mg/dL | [facility] | | | performed at [facility], [address] | | LABORATORY | | | [facility], | | | | | [place] [address] | | | + + + + + + + | Specimen | + + | Blood | + + + + + + + | Performing | Address | City/State/Zipcode | Phone Number | | Organization | | | | + + + + + | [facility] | [address] | [place] [address] | [phone] | | LABORATORY | [address] | | | + + + + + Magnesium (04/11/2018 4:17 AM)Only the most recent of 2 results within the time period is included. + + + + + | Component | Value | Ref Range | Performed At | + + + + + | MAGNESIUM | 2.2Comment: Testing | 1.7 - 2.4 mg/dL | [facility] | | | performed at [facility], [address] | | LABORATORY | | | [facility], | | | | | [place] [address] | | | + + + + + + + | Specimen | + + | Blood | + + + + + + + | Performing | Address | City/State/Zipcode | Phone Number | | Organization | | | | + + + + + | [facility] | [address] | [place] [address] | [phone] | | LABORATORY | [address] | | | + + + + + Basic metabolic panel (04/11/2018 4:17 AM)Only the most recent of 3 results within the is included. + + + + + | Component | Value | Ref Range | Performed At | + + + + + | SODIUM | 139 | 135 - 145 mmol/L | [facility] | | | | | LABORATORY | + + + + + | POTASSIUM | 3.5 | 3.5 - 4.9 mmol/L | [facility] | | | | | LABORATORY | + + + + + | CHLORIDE | 107 | 99 - 109 mmol/L | [facility] | | | | | LABORATORY | + + + + + | CO2 | 18 (L) | 23 - 32 mmol/L | [facility] | | | | | LABORATORY | + + + + + | ANION GAP AGAP | 18 | 5 - 20 mmol/L | [facility] | | | | | LABORATORY | + + + + + | GLUCOSE | 108 (H) | 65 - 99 mg/dL | [facility] | | | | | LABORATORY | + + + + + | BUN | 12 | 8 - 25 mg/dL | [facility] | | | | | LABORATORY | + + + + + | CREATININE | 0.5 (L) | 0.70 - 1.30 mg/dL | [facility] | | | | | LABORATORY | + + + + + | BUN/CREAT | 24 | | [facility] | | | | | LABORATORY | + + + + + | CALCIUM | 9.3 | 8.5 - 10.5 mg/dL | [facility] | | | | | LABORATORY | + + + + + | EGFR | >60Comment: GFR <60: | >60 mL/min/1.73m2 | [facility] | | | CHRONIC KIDNEY DISEASE, | | LABORATORY | | | IF FOUND OVER A 3 MONTH | | | | | PERIOD.GFR <15: KIDNEY | | | | | FAILURE.FOR | | | | | AMERICANS, MULTIPLY THE | | | | | CALCULATED GFR BY | | | | | 1.210.This eGFR is | | | | | calculated using the | | | | | MDRD IDMS traceable | | | | | equation.Testing | | | | | performed at [facility], [address] | | | | | [facility], | | | | | [place] [address] | | | + + + + + + + | Specimen | + + | Blood | + + + + + + + | Performing | Address | City/State/Zipcode | Phone Number | | Organization | | | | + + + + + | [facility] | [address] | [place] [address] | [phone] | | LABORATORY | [address]vd[address] | | | + + + + + XR CHEST 1 VIEW (04/10/2018 3:33 PM)Only the most recent of 2 results within the time sandeep od is included. + + + | Impressions | Performed At | + + + | 1. Low lung volumes, with tracheostomy tube, and spinal fusion as | [facility] | | described. 2. No evidence of infiltrate. Electronically | RADIOLOGY | | signed by Macario Mcnulty MD on 04/10/2018 3:37 PM | | + + + + + + | Narrative | Performed At | + + + | HISTORY: Respiratory failure. Question pneumonia. 04/08/18. | [facility] | | COMPARISON: None. TECHNIQUE: AP portable film of the chest at | RADIOLOGY | | 1530 hours FINDINGS: Transpedicular screw and posterior trisha | | | fusion of most of the thoracolumbar spine. Dextroconvex curve of the | | | lower cervical and upper thoracic spine again noted. Tracheostomy | | | tube. Low lung volumes. No infiltrates or effusions. Heart size is | | | normal. | | + + + + + | Procedure Note | + + | Marcial, Rad Results In - 04/10/2018 3:42 PM PDT HISTORY:Respiratory failure. Question | | pneumonia. 04/08/18.COMPARISON:None.TECHNIQUE:AP portable film of the chest at 1530 | | hoursFINDINGS:Transpedicular screw and posterior trisha fusion of most of the thoracolumbar | | spine. Dextroconvex curve of the lower cervical and upper thoracic spine again noted. | | Tracheostomy tube. Low lung volumes. No infiltrates or effusions. Heart size is | | normal.IMPRESSION:1. Low lung volumes, with tracheostomy tube, and spinal fusion as | | described.2. No evidence of infiltrate.Electronically signed by Macario Mcnulty MD on | | 04/10/2018 3:37 PM | | | |FINDINGS: | |Transpedicular screw and posterior trisha fusion of most of the thoracolumbar spine. Dextrocon vex curve of the lower cervical and upper thoracic spine again noted. Tracheostomy tube. Low lung volumes. No infiltrates or effusions. Heart size is normal. | | | |IMPRESSION: | |1. Low lung volumes, with tracheostomy tube, and spinal fusion as described. | |2. No evidence of infiltrate. | | | | | + + + + + + + | Performing | Address | City/State/Zipcode | Phone Number | | Organization | | | | + + + + + | [facility] | [address] | [place] [address] | | + + + + + Hepatic function panel (04/10/2018 3:53 AM) + + + + + | Component | Value | Ref Range | Performed At | + + + + + | TOTAL PROTEIN | 7.2 | 6.3 - 8.2 g/dL | [facility] | | | | | LABORATORY | + + + + + | Albumin | 3.7 | 3.6 - 5.0 g/dL | [facility] | | | | | LABORATORY | + + + + + | TBIL | 1.5Comment: SPECIMEN | 0.1 - 1.5 mg/dL | [facility] | | | SLIGHTLY HEMOLYZED | | LABORATORY | + + + + + | BILI, DIRECT | 0.2Comment: SPECIMEN | 0.0 - 0.3 mg/dL | [facility] | | | SLIGHTLY HEMOLYZED | | LABORATORY | + + + + + | ALK PHOS | 33 (L) | 35 - 115 U/L | [facility] | | | | | LABORATORY | + + + + + | AST | 29Comment: SPECIMEN | 10 - 45 U/L | [facility] | | | SLIGHTLY HEMOLYZED | | LABORATORY | + + + + + | ALT | 29Comment: SPECIMEN | 10 - 65 U/L | [facility] | | | SLIGHTLY | | LABORATORY | | | HEMOLYZEDTesting | | | | | performed at [facility], [address] | | | | | [address], | | | | | [place] [address] | | | + + + + + + + + + + | Performing | Address | City/State/Zipcode | Phone Number | | Organization | | | | + + + + + | [facility] | [address] | [place] [address] | [phone] | | LABORATORY | [address]vd[address] | | | + + + + + Sputum culture (04/09/2018 11:46 PM) + + + + + | Component | Value | Ref Range | Performed At | + + + + + | Specimen Description | TRACHEAL ASPIRATE | | [facility] | | | | | LABORATORY | + + + + + | GRAM STAIN | LESS THAN 10 WBCS/LPF | | [facility] | | | | | LABORATORY | + + + + + | GRAM STAIN | LESS THAN 10 SEC/LPF | | [facility] | | | | | LABORATORY | + + + + + | GRAM STAIN | NO ORGANISMS SEEN | | [facility] | | | | | LABORATORY | + + + + + | CULTURE | 1+ | | [facility] | | | | | LABORATORY | + + + + + | CULTURE | NORMAL UPPER RESPIRATORY | | [facility] | | | PAWEL | | LABORATORY | + + + + + + + | Specimen | + + | Sputum - Tracheal | | Aspir[facility] | + + + + + + + | Performing | Address | City/State/Zipcode | Phone Number | | Organization | | | | + + + + + | [facility] | [address] | [place] [address] | [phone] | | LABORATORY | [address]vd[address] | | | + + + + + Potassium (04/09/2018 5:09 PM) + + + + + | Component | Value | Ref Range | Performed At | + + + + + | POTASSIUM | 4.7Comment: Testing | 3.5 - 4.9 mmol/L | [facility] | | | performed at [facility];[address] | | | | | [facility] | | | | | [address] | | | + + + + + + + | Specimen | + + | Blood | + + + + + + + | Performing | Address | City/State/Zipcode | Phone Number | | Organization | | | | + + + + + | [facility] | [address] | [place] [address] | | + + + + + Respiratory Filmarray (04/09/2018 10:41 AM) + + + + + | Component | Value | Ref Range | Performed At | + + + + + | ADENOVIRUS | Not Detected | Not Detected | [facility] | | | | | LABORATORY | + + + + + | CORONAVIRUS 229E | Not Detected | Not Detected | [facility] | | | | | LABORATORY | + + + + + | CORONAVIRUS HKU1 | Not Detected | Not Detected | [facility] | | | | | LABORATORY | + + + + + | CORONAVIRUS NL63 | Not Detected | Not Detected | [facility] | | | | | LABORATORY | + + + + + | CORONAVIRUS OC43 | Not Detected | Not Detected | [facility] | | | | | LABORATORY | + + + + + | HUMAN | Not Detected | Not Detected | [facility] | | METAPNEUMOVIRUS | | | LABORATORY | + + + + + | HUMAN RHINO/ENTERO | Not Detected | Not Detected | [facility] | | | | | LABORATORY | + + + + + | INFLUENZA A | Not Detected | Not Detected | [facility] | | | | | LABORATORY | + + + + + | INFLUENZA B | Not Detected | Not Detected | [facility] | | | | | LABORATORY | + + + + + | PARAINFLUENZA 1 | Not Detected | Not Detected | [facility] | | | | | LABORATORY | + + + + + | PARAINFLUENZA 2 | Not Detected | Not Detected | [facility] | | | | | LABORATORY | + + + + + | PARAINFLUENZA 3 | Not Detected | Not Detected | [facility] | | | | | LABORATORY | + + + + + | PARAINFLUENZA 4 | Not Detected | Not Detected | [facility] | | | | | LABORATORY | + + + + + | RESP SYNCYTIAL VIRUS | Not Detected | Not Detected | [facility] | | | | | LABORATORY | + + + + + | BORDETELLA PERTUSSIS | Not Detected | Not Detected | [facility] | | | | | LABORATORY | + + + + + | CHLAMYDIAE | Not Detected | Not Detected | [facility] | | PNEUMONIAE | | | LABORATORY | + + + + + | MYCOPLASMA | Not Detected | Not Detected | [facility] | | PNEUMONIAE | | | LABORATORY | + + + + + | RESP PANEL INTERP | Testing performed by | | [facility] | | | Molecular | | LABORATORY | | | MethodologyComment: | | | | | Testing performed at | | | | | [facility], [address] | | | | | [place] | | | | | [address] | | | + + + + + + + | Specimen | + + | Nasal Swab | + + + + + + + | Performing | Address | City/State/Zipcode | Phone Number | | Organization | | | | + + + + + | [facility] | [address] | [place] [address] | [phone] | | LABORATORY | [address] | | | + + + + + POC Arterial Blood Gas (04/09/2018 7:20 AM) + + + + + | Component | Value | Ref Range | Performed At | + + + + + | POC FIO2 | 30 | % | [facility] | + + + + + | pH, Art | 7.385 | 7.350 - 7.450 | [facility] | + + + + + | POC PCO2 | 28 (L) | 35 - 45 mmHg | [facility] | + + + + + | POC p02 | 152 (H) | 80 - 105 mmHg | [facility] | + + + + + | POC HCO3 | 17 (L) | 22 - 26 mmol/L | [facility] | + + + + + | POC TCO2 | 17 (L) | 23 - 27 mEq/L | [facility] | + + + + + | POC BASE DEFICIT | 8 (H) | 0.0 - 2.0 mmol/L | [facility] | + + + + + | POC S02 | 99 (H) | 95 - 98 % | [facility] | + + + + + | POC COMMENTS | Griffin Test not | | [facility] | | | indicatedComment: Site = | | | | | right radialTesting | | | | | performed at [facility];[address] | | | | | [address];[place] | | | | | [address] | | | + + + + + + + + + + | Performing | Address | City/State/Zipcode | Phone Number | | Organization | | | | + + + + + | [facility] | [address] | [place] [address] | | + + + + + Blood Culture Set 2 (04/09/2018 6:16 AM) + + + + + | Component | Value | Ref Range | Performed At | + + + + + | Specimen Description | BLOOD | | [facility] | | | | | LABORATORY | + + + + + | CULTURE | NO GROWTH 6 DAYS | | [facility] | | | | | LABORATORY | + + + + + + + | Specimen | + + | Blood - Blood | + + + + + + + | Performing | Address | City/State/Zipcode | Phone Number | | Organization | | | | + + + + + | [facility] | [address] [place] [address] | [place] [address] | [phone] | | LABORATORY | [address] | | | + + + + + MRSA by PCR (04/09/2018 5:40 AM) + + + + + | Component | Value | Ref Range | Performed At | + + + + + | SOURCE | NARES(NOSE) | | [facility] | + + + + + | MRSA PCR | NEGATIVEComment: Testing | NEGATIVE | [facility] | | | performed at [facility];[address] | | | | | [address];[place], [place] | | | | | [address] | | | + + + + + + + | Specimen | + + | Nasopharyngeal - | | Nasopharyngeal | | Culture | + + + + + + + | Performing | Address | City/State/Zipcode | Phone Number | | Organization | | | | + + + + + | [facility] | [address] | [place] [address] | | + + + + + Blood Culture Set 1 (04/09/2018 5:33 AM) + + + + + | Component | Value | Ref Range | Performed At | + + + + + | Specimen Description | BLOOD, PERIPHERAL DRAW | | [facility] | | | | | LABORATORY | + + + + + | SPECIAL REQUESTS | RHAND | | [facility] | + + + + + | CULTURE | NO GROWTH 6 DAYS | | [facility] | | | | | LABORATORY | + + + + + + + | Specimen | + + | Blood - Blood, | | peripheral draw | + + + + + + + | Performing | Address | City/State/Zipcode | Phone Number | | Organization | | | | + + + + + | [facility] | [address] | [place] [address] | [phone] | | LABORATORY | [address]vd[address] | | | + + + + + | [facility] | [address] | [place] [address] | | + + + + + Lactic acid (04/09/2018 5:18 AM) + + + + + | Component | Value | Ref Range | Performed At | + + + + + | LACTIC ACID | 1.3Comment: Testing | 0.4 - 2.0 mmol/L | [facility] | | | performed at [facility];[address] | | | | | [address];[place] | | | | | [address] | | | + + + + + + + | Specimen | + + | Blood | + + + + + + + | Performing | Address | City/State/Zipcode | Phone Number | | Organization | | | | + + + + + | [facility] | [address] | [place] [address] | | + + + + + PROCALCITONIN (04/09/2018 5:17 AM) + + + + + | Component | Value | Ref Range | Performed At | + + + + + | PROCALCITONIN | <0.05Comment: | <0.5 ng/mL | [facility] | | | INTERPRETIVE | | | | | INFORMATION: PROCALCI | | | | | TONIN PCT <= 0.5 | | | | | ng/mL: Low risk | | | | | for progression to | | | | | severe | | | | | systemic bacteria | | | | | l infection (severe | | | | | sepsis/septic | | | | | shock). Does not | | | | | exclude an infection, | | | | | because | | | | | localized infecti | | | | | ons may be associated | | | | | with such low | | | | | levels. If PCT is | | | | | measured very early | | | | | after | | | | | bacterial challen | | | | | ge (usually <6 hours), | | | | | results may still | | | | | be low and should | | | | | re-assess PCT 6-24 | | | | | hours later. PCT >0.5 | | | | | and <= 2 | | | | | ng/mL: Moderate | | | | | risk for progression to | | | | | severe | | | | | systemic infectio | | | | | n (severe sepsis/septic | | | | | shock). Other | | | | | conditions are known to | | | | | elevate PCT, patient | | | | | should be | | | | | closely monitored both | | | | | clinically and | | | | | by re-assessing | | | | | PCT within 6-24 hours. | | | | | PCT > 2 | | | | | ng/mL: High | | | | | likelihood for | | | | | progression to severe | | | | | systemic bacteria | | | | | l infection (severe | | | | | sepsis/septic shock). | | | | | PCT >= 10 | | | | | ng/mL: High | | | | | likelihood of severe | | | | | sepsis or septic | | | | | shock.Testing performed | | | | | at [facility];[address] [facility] | | | | | [place] [address] | | | + + + + + + + + + + | Performing | Address | City/State/Zipcode | Phone Number | | Organization | | | | + + + + + | [facility] | [address] | [facility] [place] [place] [address] | | + + + + + from Last 3 Months Insurance + +--------+ +------+-------+ + | Payer | Benefi | Subscriber | Type | Phone | Address | | | t Plan | ID | | | | | | / | | | | | | | Group | | | | | + +--------+ +------+-------+ + | MEDICARE | MEDICA | [id number] | | | [address] | | | RE | | | | [place] [address] | | | IP-OP | | | | | + +--------+ +------+-------+ + | MEDICAID | [place] | [id number] | | | [address] | | | N | | | | [place] | | | [place] | | | | [phone] | | | ORTHOPAEDIC DOCTOR | | | | | + +--------+ +------+-------+ + + +--------+ +--------+ + + | Guarantor Name | Accoun | Relation to | Date | Phone | Billing Address | | | t Type | Patient | of | | | | | | | | | | + +--------+ +--------+ + + | VENU FITZGERALD | Person | Self [birth year] Home: | [address] | | | al/Fam | | 1995 | [phone] | [address] [place], | | | [place] | | | [address] | [place] [address] | + +--------+ +--------+ + +
--- OUTSIDE RECORDS SUMMARY | 2018-04-22 20:31 | XMS | Encounter Summary ---
Demographics + + + | Address | [address] | | | [place] [address] | + + + | Home Phone | | + + + | Preferred Language | Unknown | + + + | Marital Status | Single | + + + | Judaism Affiliation | Unknown | + + + | Race | Unknown | + + + | Ethnic Group | Unknown | + + + Author + + + | Author | [facility] | + + + | Organization | [facility] | + + + | Address | Unknown | + + + | Phone | Unavailable | + + + Support + + +---------+ + | Name | Relationship | Address | Phone | + + +---------+ + | Mary Tran | ECON | Unknown | | + + +---------+ + Care Team Providers + +------+ + | Care Stock Replenisher Name | Role | Phone | + +------+ + | Isaiah Marino MD | PCP | | + +------+ + Encounter Details +--------+ + + + + | Date | Type | Department | Care Team | Description | +--------+ + + + + | 04/08/ | Hospital | [facility] | See, Medical | Pain | | 2018 | Encounter | [facility] | Record | | | | | RADIOLOGY [address] | | | | | [address] | | | | | | [place] [address] | | | | | | [phone] | | | +--------+ + + + + Social History + +-------+ +--------+------+ | Tobacco Use | Types | Packs/Day | Years | Date | | | | | Used | | + +-------+ +--------+------+ | Never Assessed | | | | | + +-------+ +--------+------+ + + + | Sex Assigned at | Date Recorded | | | | + + + | Not on file | | + + + as of this encounter Medications at Time of Discharge + + +---------+---------+ + + | Medication | Sig. | Disp. | Refills | Start | End Date | | | | | | Date | | + + +---------+---------+ + + | albuterol | Take 2.5 mg by | | | | | | (PROVENTIL) (2.5 | nebulization every 6 | | | | | | MG/3ML) 0.083% | (six) hours as | | | | | | nebulizer solution | needed for Wheezing. | | | | | + + +---------+---------+ + + | budesonide | Take 0.5 mg by | | | | | | (PULMICORT) 0.5 | nebulization 2 (two) | | | | | | MG/2ML nebulizer | times daily. | | | | | | suspension | | | | | | + + +---------+---------+ + + | DULoxetine | Take 60 mg by mouth | | | | | | (CYMBALTA) 30 MG | daily. | | | | | | capsule | | | | | | + + +---------+---------+ + + | EPINEPHrine 0.3 | Inject 0.3 mg into | | | | | | MG/0.3ML | the muscle as needed | | | | | | auto-injector | for Allergic | | | | | | | Reaction or | | | | | | | Anaphylaxis. | | | | | + + +---------+---------+ + + | loratadine | Take 10 mg by mouth | | | | | | (CLARITIN) 10 MG | daily. | | | | | | tablet | | | | | | + + +---------+---------+ + + | ranitidine | Take 300 mg by mouth | | | | | | (ZANTAC) 300 MG | daily as needed. | | | | | | tablet | | | | | | + + +---------+---------+ + + | Sodium Chloride | Inhale into the | | | | | | (HYPERSAL) 3.5 % | lungs. | | | | | | NEBU | | | | | | + + +---------+---------+ + + | ALPRAZolam (XANAX) | Take 1 tablet by | 30 | 0 | 04/11/20 | | | 0.5 MG tablet | mouth 3 (three) | tablet | | 18 | | | | times daily as | | | | | | | needed for Anxiety. | | | | | + + +---------+---------+ + + | HYDROmorphone | Take 1 tablet by | 30 | 0 | 04/11/20 | | | (DILAUDID) 2 MG | mouth every 6 (six) | tablet | | 18 | | | tablet | hours as needed for | | | | | | | Pain. | | | | | + + +---------+---------+ + + | ipratropium | Inhale 2 puffs into | 1 | 12 | 04/11/20 | | | (ATROVENT HFA) 17 | the lungs 2 (two) | Inhaler | | 18 | 9 | | MCG/ACT inhaler | times daily. | | | | | + + +---------+---------+ + + | | Take 1 tablet by | | | | | | lisinopril-hydrochlo | mouth daily. | | | | | | rothiazide | | | | | | | (ZESTORETIC) 20-12.5 | | | | | | | MG per tablet | | | | | | + + +---------+---------+ + + | azithromycin | Take 1 tablet by | 2 | 0 | 04/11/20 | | | (ZITHROMAX) 500 MG | mouth daily for 2 | tablet | | 18 | 8 | | tablet | doses. | | | | | + + +---------+---------+ + + | predniSONE | Take 2 tablets by | 20 | 0 | 04/11/20 | | | (DELTASONE) 20 MG | mouth daily for 5 | tablet | | 18 | 8 | | tablet | doses. | | | | | + + +---------+---------+ + + as of this encounter Plan of Treatment Not on fileas of this encounter Procedures + +--------+ + + + | [...] section. | + +--------+ + + + in this encounter Results X-ray chest 1 view (04/08/2018 9:42 PM) + + + | Narrative | Performed At | + + + | This is a non-reportable procedure without a radiologist report and | [facility] | | is used for image storage only | [facility] | + + + + + + + + | Performing | Address | City/State/Zipcode | Phone Number | | Organization | | | | + + + + + | [facility] | [address] | [place] [address] | | + + + + + in this encounter Visit Diagnoses + + | Diagnosis | + + | Pain | + + | Generalized pain | + +"
--- OUTSIDE RECORDS SUMMARY | 2018-04-22 20:31 | XMS | Encounter Summary ---
Demographics + + + | Address | [address] | | | [place] [address] | + + + | Home Phone | | + + + | Preferred Language | Unknown | + + + | Marital Status | Single | + + + | Samaritan Affiliation | Unknown | + + + | Race | Unknown | + + + | Ethnic Group | Unknown | + + + Author + + + | Author | [facility] | + + + | Organization | [facility] | + + + | Address | Unknown | + + + | Phone | Unavailable | + + + Support + + +---------+ + | Name | Relationship | Address | Phone | + + +---------+ + | Mary Tran | ECON | Unknown | | + + +---------+ + Care Team Providers + +------+ + | Care Spares Scheduler Name | Role | Phone | + +------+ + | Mark Phillips MD | PCP | | + +------+ + Reason for Visit Auth/Cert +--------+--------+ + + + + | Status | Reason | Specialty | Diagnoses / | Referred By | Referred To | | | | | Procedures | Contact | Contact | +--------+--------+ + + + + | | | Internal | Diagnoses | | [facility] | | | | Medicine | pneumonia | | [address] | | | | | | | [address] | | | | | | | [address] | | | | | | | [place], [place] | | | | | | | [address] Phone: | | | | | | | [phone] | +--------+--------+ + + + + Encounter Details +--------+ + + + + | Date | Type | Department | Care Team | Description | +--------+ + + + + | 04/09/ | Hospital | [facility] | Clau Wade DO | | | 2018 - | Encounter | [facility] | [address] | | | | | [facility] | [place] [address] | | | 04/11/ | | [address] | [phone] | | | 2017 | | [place] [address] | | | | | | [phone] | | | +--------+ + + + [...] + + + as of this encounter Last Filed Vital Signs + + + [...] AM PDT | + + + + in this encounter Discharge Summaries Fred Sexton MD - 04/11/2018 1:51 PM PDTFormatting of this note may be different f rom the original. [facility] Service: Commercial Account Manager Discharge Summary Venu Nicolas Chelsea 22 y.o. Date of Admission: 04/09/2018 Date of Discharge: 04/11/18 Treatment Team: Consulting Physician: Tobi Lindsey MD Admitting Provider: Clau Wade DO ADMITTING DIAGNOSES Principal Problem: Acute respiratory failure with hypoxia (HCC) Active Problems: Transverse myelitis (HCC) Dysautonomia Hemiparesis (HCC) Anxiety Diaphragm paralysis HTN (hypertension) Chronic respiratory failure (HCC) Dependence on home ventilator Scoliosis Bronchiectasis (HCC) Sleep apnea Pneumonia due to infectious organism Resolved Problems: * No resolved hospital problems. * DISCHARGE DIAGNOSES Principal Problem: Acute respiratory failure with hypoxia (HCC) Active Problems: Transverse myelitis (HCC) Dysautonomia Hemiparesis (HCC) Anxiety Diaphragm paralysis HTN (hypertension) Chronic respiratory failure (HCC) Dependence on home ventilator Scoliosis Bronchiectasis (HCC) Sleep apnea Pneumonia due to infectious organism Resolved Problems: * No resolved hospital problems. 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 He reports having to stay on his ventilator for over a week w ith increasing dyspnea and coughing, thick pulmonary secretions that have been hard to sucti on out, 1 day of chills with rigors, mild headache and poor appetite for 2 days. He describe s some burning discomfort in his mid chest at times and that he was suctioning up a little b lood intermittently when he suctioned down his trachea. He feels like it has been harder to exhale than get a breath. He was using nebulized albuterol more at home but it was not helpi ng. He had not been on steroids. He briefly felt a little better a few days before presentat ion after he took a Z-chaz but had not been able to come off of the ventilator. He presented to the ED at [facility] and was given 3 albuterol neb treatments, azithromycin, ceftriaxone, Ativan, fentanyl and Toradol. He denies nausea, vomiting, diarrhea, myalgias, fevers, rash. He reports having terrible en vironmental allergies but had not noted any specific new symptoms of rhinorrhea, ear pain, s ore throat. He is able to talk while on the vent. His only other complaint on arrival is of pain in his back "from the rods in my back and the drive over". HOSPITAL COURSE ICU timeline: 04/09: Admitted to ICU and pt kept on MV 04/10: Remains in ICU. Much better. Able to tolerate being of the vent momentaril y and off dex. 04/11: Pt remains stable and feeling better today on minimal vent sett ings. PAST MEDICAL HISTORY Past Medical History Diagnosis Date Acid reflux ADHD Allergic rhinitis Anxiety Bronchiectasis (HCC) Chronic respiratory failure (HCC) Dependence on home ventilator Diaphragm paralysis Left Dysautonomia Eczema Environmental allergies Hemiparesis (HCC) Left arm flaccid, weaker left leg due to transverse myelitis HTN (hypertension) Kidney stones Legally blind Optic neuritis Osteoporosis Scoliosis Sleep apnea Transverse myelitis (HCC) PAST SURGICAL HISTORY Past Surgical History Procedure Laterality Date BACK SURGERY Paolo trisha placement T5-L4 DIAPHRAGM PLICATION GASTROSTOMY TUBE PLACEMENT 2006 subsequently removed TRACHEOSTOMY TUBE PLACEMENT 2006 DISCHARGE MEDS Medication List START taking these medications ALPRAZolam 0.5 MG tablet QTY: 30 tablet Refills: 0 Commonly known as: XANAX Take 1 tablet by mouth 3 (three) times daily as needed for Anxiety. azithromycin 500 MG tablet QTY: 2 tablet Refills: 0 Commonly known as: ZITHROMAX Take 1 tablet by mouth daily for 2 doses. HYDROmorphone 2 MG tablet QTY: 30 tablet Refills: 0 Commonly known as: DILAUDID Take 1 tablet by mouth every 6 (six) hours as needed for Pain. ipratropium 17 MCG/ACT inhaler QTY: 1 Inhaler Refills: 12 Commonly known as: ATROVENT HFA Inhale 2 puffs into the lungs 2 (two) times daily. predniSONE 20 MG tablet QTY: 20 tablet Refills: 0 Commonly known as: DELTASONE Take 2 tablets by mouth daily for 5 doses. CONTINUE taking these medications albuterol (2.5 MG/3ML) 0.083% nebulizer solution Refills: 0 Commonly known as: PROVENTIL budesonide 0.5 MG/2ML nebulizer suspension Refills: 0 Commonly known as: PULMICORT DULoxetine 30 MG capsule Refills: 0 Commonly known as: CYMBALTA EPINEPHrine 0.3 MG/0.3ML auto-injector Refills: 0 HYPERSAL 3.5 % Nebu Refills: 0 Generic drug: Sodium Chloride lisinopril-hydrochlorothiazide 20-12.5 MG per tablet Refills: 0 Commonly known as: ZESTORETIC loratadine 10 MG tablet Refills: 0 Commonly known as: CLARITIN ranitidine 300 MG tablet Refills: 0 Commonly known as: ZANTAC You might also be taking other medications not listed above. If you have questions about an y of your other medications, talk to the person who prescribed them or your Primary Care Pro vider. Where to Get Your Medications You can get these medications from any pharmacy Bring a paper prescription for each of these medications ALPRAZolam 0.5 MG tablet azithromycin 500 MG tablet HYDROmorphone 2 MG tablet ipratropium 17 MCG/ACT inhaler predniSONE 20 MG tablet DISCHARGE EXAM EXAM GEN:awake, alert, oriented x3, sitting in a chair ,NAD, scoliosis noted NEURO:PERRLA, EOMI, fairly normal vocalization with trach on vent (cuffless trach) no fac ial asymmetry, moves R UE and b/l LEs well, flaccid L arm/hand chronically GCS:15 HEENT:sclerae clear, nonicteric, oral mmm, pink, no exudates NECK: supple, trachea midline with 5.0 Bivona cuffless trach with clean trach ties CV:RRR, S1/S2, no murmur, rub or gallop, peripheral pulses palpable, cap refill brisk LUNGS: coarse rhonchib/l, no crackles or wheezing ABD:soft, non distended, non tender to palpation EXTR:no edema, clubbing or cyanosis, SKIN:warm, dry, no mottling; mild erythema over shoulders/upper outer arms with palpable follicular rash (chronic keratosis pilaris type rash) LINES/TUBES:PIVs Mark Phillips MD [address] [facility] [place] [address] Mark Phillips MD [address] [facility], [address] [place] [address] Schedule an appointment as soon as possible for a visit in 2 days Disposition: Stable to be discharged home. Instructions to patient senior care assistant: Please monitor vitals and pulse oximetry at least twice daily for 5 days. Please provide one on one care for ambulation, feeding and other ADL for 5 days. Please provide one on one care until further evaluated by pt's PCP. Please call EMS if symptoms worsen or resume. Condition on Discharge: stable Code Status: Full Code Primary Care Physician: MARK PHILLIPS *Please bill 80 minutes of critical care time spent evaluating the patient, reviewing the d sachin and formulating a plan exclusive of all other procedures. Fred Sexton MD 04/11/2018 in this encounter Discharge Instructions Kellee Aviles, LOAN AND CREDIT MANAGER - 04/11/2018Instructions to patient senior care assistant: Please monitor vitals and pulse oximetry at least twice daily for 5 days. Please provide one on one care for ambulation, feeding and other ADL for 5 days. Please provide one on one care until further evaluated by pt's PCP. Please call EMS if symptoms worsen or resume.in this encounter Medications at Time of Discharge [...] +---------+---------+ + + as of this encounter Progress Notes Fred Sexton MD - 04/10/2018 9:33 AM PDTFormatting of this note may be different f rom the original. [facility] Service: Commercial Account Manager Progress Note Hospital Day: LOS: 1 day Post-Op Day: * No surgery found * SUBJECTIVE Patient Summary: The patient is a 22 y.o. male with significant past medical history of transverse myelitis with Left arm paresis, dysautonomia, chronic respiratory failure wit h custodial tracheostomy tube (Bivona 5.0 cuffless) with home ventilator use at night or whe n he is tired who presents with worsening dyspnea. He reports having to stay on his ventilat or for over a week with increasing dyspnea and coughing, thick pulmonary secretions that hav e been hard to suction out, 1 day of chills with rigors, mild headache and poor appetite for 2 days. He describes some burning discomfort in his mid chest at times and that he was suct ioning up a little blood intermittently when he suctioned down his trachea. He feels like it has been harder to exhale than get a breath. He was using nebulized albuterol more at home but it was not helping. He had not been on steroids. He briefly felt a little better a few d ays before presentation after he took a Z-chaz but had not been able to come off of the venti lator. He presented to the ED at [facility] and was given 3 albuterol neb treatments, azithr omycin, ceftriaxone, Ativan, fentanyl and Toradol. He denies nausea, vomiting, diarrhea, myalgias, fevers, rash. He reports having terrible en vironmental allergies but had not noted any specific new symptoms of rhinorrhea, ear pain, s ore throat. He is able to talk while on the vent. His only other complaint on arrival is of pain in his back "from the rods in my back and the drive over". ICU timeline: 04/09: Admitted to ICU and pt kept on MV Events Overnight: Remained on dex overnight to tolerate the MV. Scheduled Medications albuterol 6 puff Inhalation Q4H azithromycin 500 mg Intravenous Q24H cefTRIAXone 1 g Intravenous Q24H chlorhexidine gluconate 15 mL Mouth/Throat Q12H docusate sodium 100 mg Oral BID Or docusate 100 mg Per OG Tube BID enoxaparin 40 mg Subcutaneous Q24H famotidine 20 mg Oral BID Or famotidine 20 mg Intravenous BID ipratropium 6 puff Inhalation 4x daily methylPREDNISolone 40 mg Intravenous Q8H sodium chloride 4 mL Nebulization Q12H Continuous Infusions dexmedetomidine in NS 1.5 mcg/kg/hr (04/10/18 0606) sodium chloride (IV) 75 mL/hr (04/10/18 0855) PRN Medications acetaminophen OR acetaminophen, albuterol, fentaNYL OR fentaNYL, HYDROmorphone OR HYDROmorphone, labetalol, magnesium sulfate OR magnesium sulfate OR magnesium sul fate OR magnesium sulfate, nystatin, nystatin, ondansetron OR ondansetron, phosphoru s OR sodium phosphate IVPB 20 mmol OR sodium phosphate IVPB 45 mmol, potassium chlor evelyn OR potassium chloride OR potassium chloride OBJECTIVE Vital Signs: BP (!) 159/113 | Pulse (!) 46 | Temp 97.8 F (36.6 C) (Oral) | Resp 17 | Ht 1.803 m (5' 10.98") | Wt 86.8 kg (191 lb 6.1 oz) | SpO2 99% | BMI 26.70 kg/m Temp: [97.8 F (36.6 C)-98.8 F (37.1 C)] 97.8 F (36.6 C) (04/10 400) BP: (117-186)/(73-125) 159/113 (04/10 900) Heart Rate: [0-85] 46 (04/10 900) Resp: [12-42] 17 (04/10 900) SpO2: [97 %-100 %] 99 % (04/10 900) Height: [180.3 cm (5' 10.98")] 180.3 cm (5' 10.98") (04/09 2000) FiO2 : [30 %] 30 % (04/10 400) EXAM GEN: awake, alert, oriented x3, sitting ,NAD, scoliosis noted NEURO: PERRLA, EOMI, fairly normal vocalization with trach on vent (cuffless trach) no faci al asymmetry, moves R UE and b/l LEs well, flaccid L arm/hand chronically GCS: 15 HEENT: sclerae clear, nonicteric, oral mmm, pink, no exudates NECK: supple, trachea midline with 5.0 Bivona cuffless trach with clean trach ties CV: RRR, S1/S2, no murmur, rub or gallop, peripheral pulses palpable, cap refill brisk LUNGS: coarse rhonchi b/l, no crackles or wheezing ABD: soft, non distended, non tender to palpation EXTR: no edema, clubbing or cyanosis, SKIN: warm, dry, no mottling; mild erythema over shoulders/upper outer arms with palpable f ollicular rash (chronic keratosis pilaris type rash) LINES/TUBES: PIVs DATA CBC: Lab Results Component Value Date WBC 15.12 (H) 04/10/2018 RBC 5.00 04/10/2018 HGB 14.6 04/10/2018 HCT 42.9 04/10/2018 MCV 85.8 04/10/2018 MCH 29.1 04/10/2018 MCHC 34.0 04/10/2018 RDW 42.9 04/10/2018 PLT 228 04/10/2018 MPV 8.4 04/10/2018 DIFFTYPE AUTOMATED 04/10/2018 CMP: Lab Results Component Value Date NA 138 04/10/2018 K 4.7 04/10/2018 CL 107 04/10/2018 CO2 14 (LL) 04/10/2018 ANIONGAP 22 (H) 04/10/2018 GLUF 159 (H) 04/10/2018 BUN 11 04/10/2018 CREATININE 0.5 (L) 04/10/2018 BCR 22 04/10/2018 CA 8.9 04/10/2018 PROT 7.2 04/10/2018 ALB 3.7 04/10/2018 BILITOT 1.5 04/10/2018 ALP 33 (L) 04/10/2018 AST 29 04/10/2018 ALT 29 04/10/2018 EGFR >60 04/10/2018 PROBLEM LIST Principal Problem: Acute respiratory failure with hypoxia (HCC) Active Problems: Transverse myelitis (HCC) Dysautonomia Hemiparesis (HCC) Anxiety Diaphragm paralysis HTN (hypertension) Chronic respiratory failure (HCC) Dependence on home ventilator Scoliosis Bronchiectasis (HCC) Sleep apnea Pneumonia due to infectious organism ASSESSMENT & PLAN NEURO: Anxiety: worsened by respiratory failure and having to switch from his home vent to one of the ICU ventilators. On prn xanax. Improving. Precedex as needed. CV: Hemodynamically stable. Not currently having any issues. HTN: prn IV medication at this time. Once stable with resp status will add back home med s as appropriate. PULM: Acute on chronic hypoxemic respiratory failure: due to CAP. Improving today. Lesser secr etions and setting closer to home settings. Appreciate pulm input GI/NUTRITION: Diet as tolerated. He normally eats, even on the vent. Has not had a feeding tube in years. RENAL/LYTES: Normal renal function. Metabolic acidosis, compensated. Hypokalemia: replace per protocol. Avoid nephrotoxins. Monitor I/Os strictly. ID: Severe CAP with chronic home vent (only vented at night until he started getting sick so not really VAP). Possibly viral pneumonia but will cont ceftriaxone and azithromycin. HEME: Normal H/H, PLT count. ENDO: No issues MUSC/SKIN: Early mobilization as pt tolerates PROPHYLAXIS: Stress ulcer prophylaxis: Pepcid DVT prophylaxis: SCDs, Lovenox VAP bundle: chlorhexidine oral care, HOB >30 degrees. Disposition: ICU plan as above. D/w pt and family today as he was getting better. They ini tially expressed that he would be more comfortable at home and as there was no additional madrigal pport provided here they would want to go home with antibiotics. As the day went by, the jose daniel buck requested he would rather stay another day and be safe. I reiterated that we wouldn't d ischarge him unless we think its safe for him. I also mentioned that we would be happy to wa tch him here for another day and see if he continues to improve. Disposition: ICU care as above Code Status: Full Code *Please bill 90 minutes of critical care time spent evaluating the patient, reviewing the d sachin and formulating a plan exclusive of all other procedures. Fred Sexton MD 04/10/2018in this encounter Plan of Treatment Not on [...] + + + in this encounter Results POCT glucose (04/11/2018 12:44 PM) + + + + + | Component | Value | Ref Range | Performed At | + + + + + | GLUCOSE,POC SCREEN | 107 (H)Comment: Testing | 65 - 99 mg/dL | [facility] | | | performed at [facility];[address] | | | | | [address];[place] | | | | | [address] | | | + + + + + + + + + + | Performing | Address | City/State/Zipcode | Phone Number | | Organization | | | | + + + + + | [facility] | [address] | [facility] [place] [place] [address] | | + + + + + CBC w/auto diff (reflex to manual) (04/11/2018 4:17 AM) + + + + + | [...] | [facility] | | | performed at [facility] [address] | | LABORATORY | | | [facility] [address], | | | | | [place] [address] | | | + + + + + + + | Specimen | + + | Blood | + + + + + + + | Performing | Address | City/State/Zipcode | Phone Number | | Organization | | | | + + + + + | [facility] | [address] | [place] [address] | [phone] | | LABORATORY | [address] | | | + + + + + Basic metabolic panel (04/11/2018 4:17 AM) + + + + + | [...] 18 | 5 - 20 mmol/L | [facility] | | | | | LABORATORY | + + + + + | GLUCOSE | 108 (H) | 65 - 99 mg/dL | [facility] | | | | | LABORATORY | + + + + + | BUN | 12 | 8 - 25 mg/dL | [facility] | | | | | LABORATORY | [...] | | | | | performed at [facility], [address] | | | | | [facility], | | | | | [place] [address] | | | + + + + + + + | Specimen | + + | Blood | + + + + + + + | Performing | Address | City/State/Zipcode | Phone Number | | Organization | | | | + + + + + | [facility] | [address] | [place] [address] | [phone] | | LABORATORY | [address] | | | + + + + + Phosphorus (04/11/2018 4:17 AM) + + + + + | Component | Value | Ref Range | Performed At | + + + + + | PHOSPHORUS | 3.5Comment: Testing | 2.3 - 4.8 mg/dL | [facility] | | | performed at [facility], [address] | | LABORATORY | | | [address], | | | | | [place] [address] | | | + + + + + + + | Specimen | + + | Blood | + + + + + + + | Performing | Address | City/State/Zipcode | Phone Number | | Organization | | | | + + + + + | [facility] | [address] | [place] [address] | [phone] | | LABORATORY | [address] | | | + + + + + Magnesium (04/11/2018 4:17 AM) + + + + + | Component | Value | Ref Range | Performed At | + + + + + | MAGNESIUM | 2.2Comment: Testing | 1.7 - 2.4 mg/dL | [facility] | | | performed at [facility], [address] | | LABORATORY | | | [facility], | | | | | [place] [address] | | | + + + + + + + | Specimen | + + | Blood | + + + + + + + | Performing | Address | City/State/Zipcode | Phone Number | | Organization | | | | + + + + + | [facility] | [address] | [place] [address] | [phone] | | LABORATORY | [address] | | | + + + + + XR CHEST 1 VIEW (04/10/2018 3:33 PM) + + + | Impressions | Performed [...] | Procedure Note | + + | Beto Ceja Results In - 04/10/2018 3:42 PM PDT [...] | + + + + + | [facility] | [address] | [place] [address] | | + + + + + [...] SPECIMEN | 0.0 - 0.3 mg/dL | [facility] | | | SLIGHTLY HEMOLYZED | | [...] | | | | | performed at [facility], [address] | | | | | [address], | | | | | [place] [address] | | | + + + + + + + + + + | Performing | Address | City/State/Zipcode | Phone Number | | Organization | | | | + + + + + | [facility] | [address] | [place] [address] | [phone] | | LABORATORY | [address] | | | + + + + + CBC w/auto diff (reflex to manual) (04/10/2018 3:53 AM) + + + + + | Component | Value | Ref Range | Performed At | + + + + + | WBC | 15.12 (H) | 3.80 - 11.00 K/uL | [facility] | | | | | LABORATORY | + + + + + | RBC | 5.00 | 4.20 - 5.70 M/uL | [facility] | | | | | LABORATORY | + + + + + | HGB | 14.6 | 13.2 - 17.0 g/dL | [facility] | | | | | LABORATORY | + + + + + | HCT | 42.9 | 39.0 - 50.0 % | [facility] | | | | | LABORATORY | + + + + + | MCV | 85.8 | 80.0 - 100.0 fl | [facility] | | | | | LABORATORY | + + + + + | MCH | 29.1 | 27.0 - 34.0 pg | [facility] | | | | | LABORATORY | + + + + + | MCHC | 34.0 | 32.0 - 35.5 g/dL | [facility] | | | | | LABORATORY | + + + + + | RDW SD | 42.9 | 37 - 53 fl | [facility] | | | | | LABORATORY | + + + + + | PLT | 228 | 150 - 400 K/uL | [facility] | | | | | LABORATORY | + + + + + | MPV | 8.4 | fl | [facility] | | | | | LABORATORY | + + + + + | DIFF TYPE | AUTOMATED | | [facility] | | | | | LABORATORY | + + + + + | NEUTROPHILS | 82.22 | % | [facility] | | | | | LABORATORY | + + + + + | LYMPHOCYTES | 12.93 | % | [facility] | | | | | LABORATORY | + + + + + | MONOCYTES | 4.63 | % | [facility] | | | | | LABORATORY | + + + + + | EOSINOPHILS | 0.09 | % | [facility] | | | | | LABORATORY | + + + + + | BASOPHILS | 0.13 | % | [facility] | | | | | LABORATORY | + + + + + | NEUTROPHILS ABS | 12.43 (H) | 1.90 - 7.40 K/uL | [facility] | | | | | LABORATORY | + + + + + | LYMPHOCYTES ABS | 1.96 | 1.00 - 3.90 K/uL | [facility] | | | | | LABORATORY | + + + + + | MONOCYTES ABS | 0.70 | 0.00 - 0.80 K/uL | [facility] | | | | | LABORATORY | + + + + + | EOSINOPHILS ABS | 0.01 | 0.00 - 0.50 K/uL | [facility] | | | | | LABORATORY | + + + + + | BASOPHILS ABS | 0.02Comment: Testing | 0.00 - 0.10 K/uL | [facility] | | | performed at [facility], [address] | | LABORATORY | | | [address], | | | | | [place] [address] | | | + + + + + + + | Specimen | + + | Blood | + + + + + + + | Performing | Address | City/State/Zipcode | Phone Number | | Organization | | | | + + + + + | [facility] | [address] | [place] [address] | [phone] | | LABORATORY | [address] | | | + + + + + Basic metabolic panel (04/10/2018 3:53 AM) + + + + + | Component | Value | Ref Range | Performed At | + + + + + | SODIUM | 138 | 135 - 145 mmol/L | [facility] | | | | | LABORATORY | + + + + + | POTASSIUM | 4.7Comment: SPECIMEN | 3.5 - 4.9 mmol/L | [facility] | | | SLIGHTLY HEMOLYZ[facility] | | LABORATORY | + + + + + | CHLORIDE | 107 | 99 - 109 mmol/L | [facility] | | | | | LABORATORY | + + + + + | CO2 | 14 (LL)Comment: RESULT | 23 - 32 mmol/L | [facility] | | | READ BACK BY: CRYSTAL Morales | | LABORATORY | | | 9RP 5:17 04/10/18 DH | | | | | CRYSTAL Morales 9RP 5:04/10/18 DH | | | | | | | | + + + + + | ANION GAP AGAP | 22 (H) | 5 - 20 mmol/L | [facility] | | | | | LABORATORY | + + + + + | GLUCOSE | 159 (H)Comment: SPECIMEN | 65 - 99 mg/dL | [facility] | | | SLIGHTLY HEMOLYZED | | LABORATORY | + + + + + | BUN | 11 | 8 - 25 mg/dL | [facility] | | | | | LABORATORY | + + + + + | CREATININE | 0.5 (L)Comment: SPECIMEN | 0.70 - 1.30 mg/dL | [facility] | | | SLIGHTLY HEMOLYZED | | LABORATORY | + + + + + | BUN/CREAT | 22 | | [facility] | | | | | LABORATORY | + + + + + | CALCIUM | 8.9 | 8.5 - 10.5 mg/dL | [facility] | | | | | LABORATORY | + + + + + | EGFR | >60Comment: GFR <60: | >60 mL/min/1.73m2 | [facility] | | | CHRONIC KIDNEY DISEASE, | [...] | | | | | performed at [facility], [address] | | | | | [facility], | | | | | [place] [address] | | | + + + + + + + | Specimen | + + | Blood | + + + + + + + | Performing | Address | City/State/Zipcode | Phone Number | | Organization | | | | + + + + + | [facility] | [address] | [place] [address] | [phone] | | LABORATORY | Blvd. | | | + + + + + Phosphorus (04/10/2018 3:53 AM) + + + + + | Component | Value | Ref Range | Performed At | + + + + + | PHOSPHORUS | 3.5Comment: SPECIMEN | 2.3 - 4.8 mg/dL | [facility] [facility] | | | SLIGHTLY | | LABORATORY | | | HEMOLYZEDTesting | | | | | performed at [facility], [address] | | | | | [address] [facility] [address], | | | | | [place] [address] | | | + + + + + + + | Specimen | + + | Blood | + + + + + + + | Performing | Address | City/State/Zipcode | Phone Number | | Organization | | | | + + + + + | [facility] | [address] | [place] [address] | [phone] | | LABORATORY | Blvd. | | | + + + + + Magnesium (04/10/2018 3:53 AM) + + + + + | Component | Value | Ref Range | Performed At | + + + + + | MAGNESIUM | 2.1Comment: SPECIMEN | 1.7 - 2.4 mg/dL | [facility] | | | SLIGHTLY | | LABORATORY | | | HEMOLYZEDTesting | | | | | performed at [facility], [address] | | | | | [address], | | | | | [place] [address] | | | + + + + + + + | Specimen | + + | Blood | + + + + + + + | Performing | Address | City/State/Zipcode | Phone Number | | Organization | | | | + + + + + | [facility] | [address] | [place] [address] | [phone] | | LABORATORY | Blvd. | | [...] + + + | [facility] | [address] | [place] [address] | [phone] | | LABORATORY | Blvd[address] | | | + + + + + Potassium (04/09/2018 5:09 PM) + + + + + | Component | Value | Ref Range | Performed At | + + + + + | POTASSIUM | 4.7Comment: Testing | 3.5 - 4.9 mmol/L | [facility] | | | performed at [facility];[address] | | | | | [address];[place] | | | | | [address] | | | + + + + + + + | Specimen | + + | Blood | + + + + + + + | Performing | Address | City/State/Zipcode | Phone Number | | Organization | | | | + + + + + | [facility] | [address] | [place] [address] | | + + + + + [...] INTERP | Testing performed by | | [facility] | | | Molecular | | LABORATORY | | | MethodologyComment: | | | | | Testing performed at | | | | | [facility], [address] | | | | | [place] | | | | | [address] | | | + + + + + + + | Specimen | + + | Nasal Swab | + + + + + + + | Performing | Address | City/State/Zipcode | Phone Number | | Organization | | | | + + + + + | [facility] | [address] | [place] [address] | [phone] | | LABORATORY | Blvd[address] | | | + + + + + POC Arterial Blood Gas (04/09/2018 7:20 AM) + + + + + | Component | Value | Ref Range | Performed At | + + + + + | POC FIO2 | 30 | % | [facility] | + + + + + | pH, Art | 7.385 | 7.350 - 7.450 | [facility] | + + + [...] (L) | 23 - 27 mEq/L | [facility] | + + + + + | POC BASE DEFICIT | 8 (H) | 0.0 - 2.0 mmol/L | [facility] | + + + + + | POC S02 | 99 (H) | 95 - 98 % | [facility] | + + + + + | POC COMMENTS | Griffin Test not | | [facility] | | | indicatedComment: Site = | | | | | right radialTesting | | | | | performed at [facility];[address] | | | | | [address];[place] | | | | | [address] | | | + + + + + + + + + + | Performing | Address | City/State/Zipcode | Phone Number | | Organization | | | | + + + + + | [facility] | [address] | [place] [address] | | + + + + + [...] + + + | [facility] | [address] | [place] [address] | [phone] | | LABORATORY | [address]vd[address] | | | + + + + + MRSA by PCR (04/09/2018 5:40 AM) + + + + + | Component | Value | Ref Range | Performed At | + + + + + | SOURCE | NARES(NOSE) | | [facility] | + + + + + | MRSA PCR | NEGATIVEComment: Testing | NEGATIVE | [facility] | | | performed at [facility];[address] | | | | | [address];[place] | | | | | [address] | | | + + + + + + + | Specimen | + + | Nasopharyngeal - | | Nasopharyngeal | | Culture | + + + + + + + | Performing | Address | City/State/Zipcode | Phone Number | | Organization | | | | + + + + + | [facility] | [address] | [place] [address] | | + + + + + [...] | SPECIAL REQUESTS | RHAND | | [facility] | + + + [...] + + + | [facility] | [address] | [place] [address] | [phone] | | LABORATORY | Blvd. | | | + + + + + | [facility] | [address] | [place] [address] | | + + + + + Lactic acid (04/09/2018 5:18 AM) + + + + + | Component | Value | Ref Range | Performed At | + + + + + | LACTIC ACID | 1.3Comment: Testing | 0.4 - 2.0 mmol/L | [facility] | | | performed at [facility];[address] | [address] | | [address];[place] | | | | | [address] | | | + + + + + + + | Specimen | + + | Blood | + + + + + + + | Performing | Address | City/State/Zipcode | Phone Number | | Organization | | | | + + + + + | [facility] | [address] | [place] [address] | | + + + + + PROCALCITONIN (04/09/2018 5:17 AM) + + + + + | Component | Value | Ref Range | Performed At | + + + + + | PROCALCITONIN | <0.05Comment: | <0.5 ng/mL | [facility] | | | INTERPRETIVE | | [...] performed | | | | | at [facility];[address] | | | | | [facility];[place] [address] | | | + + + + + + + + + + | Performing | Address | City/State/Zipcode | Phone Number | | Organization | | | | + + + + + | [facility] | [address] | [facility] [place] [address] | | + + + + + Basic metabolic panel (04/09/2018 5:17 AM) + + + + + | Component | Value | Ref Range | Performed At | + + + + + | SODIUM | 143 | 135 - 145 mmol/L | [facility] | + + + + + | POTASSIUM | 3.2 (L) | 3.5 - 4.9 mmol/L | [facility] | + + + + + | CHLORIDE | 113 (H) | 99 - 109 mmol/L | [facility] | + + + + + | CO2 | 16 (L) | 23 - 32 mmol/L | [facility] | + + + + + | ANION GAP AGAP | 17 | 5 - 20 mmol/L | [facility] | + + + + + | GLUCOSE | 102 (H) | 65 - 99 mg/dL | [facility] | + + + + + | BUN | 14 | 8 - 25 mg/dL | [facility] | + + + + + | CREATININE | 0.59 (L) | 0.70 - 1.30 mg/dL | [facility] | + + + + + | BUN/CREAT | 24 | | [facility] | + + + + + | CALCIUM | 9.2 | 8.5 - 10.5 mg/dL | [facility] | + + + + + | EGFR | >60Comment: GFR <60: | >60 mL/min/1.73m2 | [facility] | | | CHRONIC KIDNEY DISEASE, | | | | | IF FOUND OVER A 3 MONTH | | | | | PERIOD.GFR <15: KIDNEY | | | | | FAILURE.FOR | | | | | AMERICANS, MULTIPLY THE | | | | | CALCULATED GFR BY | | | | | 1.210.This eGFR is | | | | | calculated using the | | | | | [facility] traceable | | | | | equation.Testing | | | | | performed at [facility] | | | | | [facility];[place], [place] | | | | | [address] | | | + + + + + + + | Specimen | + + | Blood | + + + + + + + | Performing | Address | City/State/Zipcode | Phone Number | | Organization | | | | + + + + + | [facility] | [address] | [place] [address] | | + + + + + CBC W/Auto Diff (Reflex to Manual) (04/09/2018 5:17 AM) + + + + + | Component | Value | Ref Range | Performed At | + + + + + | WBC | 12.29 (H) | 3.80 - 11.00 K/uL | [facility] | + + + + + | RBC | 4.93 | 4.20 - 5.70 M/uL | [facility] | + + + + + | HGB | 14.5 | 13.2 - 17.0 g/dL | [facility] | + + + + + | HCT | 41.8 | 39.0 - 50.0 % | [facility] | + + + + + | MCV | 84.7 | 80.0 - 100.0 fl | [facility] | + + + + + | MCH | 29.4 | 27.0 - 34.0 pg | [facility] | + + + + + | MCHC | 34.8 | 32.0 - 35.5 g/dL | [facility] | + + + + + | RDW SD | 41.6 | 37 - 53 fl | [facility] | + + + + + | PLT | 261 | 150 - 400 K/uL | [facility] | + + + + + | MPV | 7.0 | fl | [facility] | + + + + + | DIFF TYPE | AUTOMATED | | [facility] | + + + + + | NEUTROPHILS | 52.72 | % | [facility] | + + + + + | LYMPHOCYTES | 35.31 | % | [facility] | + + + + + | MONOCYTES | 9.06 | % | [facility] | + + + + + | EOSINOPHILS | 2.35 | % | [facility] | + + + + + | BASOPHILS | 0.56 | % | [facility] | + + + + + | NEUTROPHILS ABS | 6.48 | 1.90 - 7.40 K/uL | [facility] | + + + + + | LYMPHOCYTES ABS | 4.34 (H) | 1.00 - 3.90 K/uL | [facility] | + + + + + | MONOCYTES ABS | 1.11 (H) | 0.00 - 0.80 K/uL | [facility] | + + + + + | EOSINOPHILS ABS | 0.29 | 0.00 - 0.50 K/uL | [facility] | + + + + + | BASOPHILS ABS | 0.07Comment: Testing | 0.00 - 0.10 K/uL | [facility] | | | performed at [facility];[address] | | | | | [address];[place] | | | | | [address] | | | + + + + + + + | Specimen | + + | Blood | + + + + + + + | Performing | Address | City/State/Zipcode | Phone Number | | Organization | | | | + + + + + | [facility] | [address] | [facility] [place] [address] | | + + + + + POCT glucose (04/09/2018 4:30 AM) + + + + + | Component | Value | Ref Range | Performed At | + + + + + | GLUCOSE,POC SCREEN | 96Comment: Testing | 65 - 99 mg/dL | [facility] | | | performed at [facility];[address] | | | | | [address];[place] | | | | | [address] | | | + + + + + + + + + + | Performing | Address | City/State/Zipcode | Phone Number | | Organization | | | | + + + + + | [facility] | [address] | [place] [address] | | + + + + + in this encounter Visit Diagnoses + + | Diagnosis | + + | Acute respiratory failure with hypoxia (HCC) - Primary | + + | Acute respiratory failure | + + | Transverse myelitis (HCC) | + + | Other causes of myelitis | + + | Dysautonomia | + + | Unspecified disorder of autonomic nervous system | + + | Hemiparesis (HCC) | + + | Hemiplegia, unspecified, affecting unspecified side | + + | Anxiety | + + | Anxiety state, unspecified | + + | Diaphragm paralysis | + + | Disorders of diaphragm | + + | HTN (hypertension) | + + | Unspecified essential hypertension | + + | Chronic respiratory failure (HCC) | + + | Chronic respiratory failure | + + | Dependence on home ventilator | + + | Scoliosis | + + | Scoliosis (and kyphoscoliosis), idiopathic | + + | Bronchiectasis (HCC) | + + | Bronchiectasis without acute exacerbation | + + | Sleep apnea | + + | Unspecified sleep apnea | + + | Pneumonia due to infectious organism | + + Admitting Diagnoses + + | Diagnosis | + + | pneumonia | + + Administered Medications + +--------+---------+------+------+------+ | Medication Order | MAR | Action | Dose | Rate | Site | | | Action | Date | | | | + +--------+---------+------+------+------+ + +---+ | acetaminophen (TYLENOL) | | | suppository 650 mg 650 mg, | | | Rectal, Every 6 Hours PRN, Mild | | | Pain (1-3), Fever, Starting Mon | | | 04/09/18 at 0428 | | + +---+ | | | + +---+ | acetaminophen (TYLENOL) tablet | | | 650 mg 650 mg, Oral, Every 6 | | | Hours PRN, Mild Pain (1-3), | | | Fever, Starting 04/09/18 at | | | 0428 | | + +---+ | | | + +---+ + +-------+ +---------+---+---+ | albuterol (PRO-AIR) inhaler | Given | | 6 puffs | | | | (vent) 6 puff, Inhalation, Every | | 8 03:56 | | | | | 4 Hours, First dose on Mon | | PDT | | | | | 04/09/18 at 0500 | | | | | | + +-------+ +---------+---+---+ +-------+ +---------+---+---+ | Given | | 6 puffs | | | | | 8 07:25 | | | | | | PDT | | | | +-------+ +---------+---+---+ | Given | | 6 puffs | | | | | 8 10:47 | | | | | | PDT | | | | +-------+ +---------+---+---+ + +---+ | | | + +---+ | albuterol (PRO-AIR) inhaler | | | (vent) 6 puff, Inhalation, Every | | | 1 Hour PRN, Wheezing, Shortness | | | of Breath, Starting 04/09/18 | | | at 0438 | | + +---+ | | | + +---+ + +-------+ +---------+---+---+ | ALPRAZolam (XANAX) tablet 0.25 | Given | | 0.25 mg | | | | mg 0.25 mg, Oral, 3 Times Daily | | 8 13:59 | | | | | PRN, Anxiety, Starting Tue | | PDT | | | | | 04/10/18 at 1212 | | | | | | + +-------+ +---------+---+---+ +-------+ +---------+---+---+ | Given | | 0.25 mg | | | | | 8 21:50 | | | | | | PDT | | | | +-------+ +---------+---+---+ +---+---+ | | | +---+---+ + +-------+ +--------+---+---+ | ALPRAZolam (XANAX) tablet 0.5 | Given | | 0.5 mg | | | | mg 0.5 mg, Oral, 3 Times Daily | | 8 11:04 | | | | | PRN, Anxiety, Starting Tue | | PDT | | | | | 04/10/18 at 2243 | | | | | | + +-------+ +--------+---+---+ +---+---+ | | | +---+---+ + +-------+ +--------+-------+---+ | azithromycin (ZITHROMAX) 500 mg | Given | | 500 mg | 250 | | | in sodium chloride (IV) 0.9 % | | 8 22:03 | | mL/hr | | | 250 mL IVPB 500 mg, Intravenous, | | PDT | | | | | Administer over 60 Minutes, | | | | | | | Every 24 Hours, First dose on Mon | | | | | | | 04/09/18 at 2100 | | | | | | + +-------+ +--------+-------+---+ +-------+ +--------+-------+---+ | Given | | 500 mg | 250 | | | | 8 20:33 | | mL/hr | | | | PDT | | | | +-------+ +--------+-------+---+ +---+---+ | | | +---+---+ + +-------+ +-----+-------+---+ | cefTRIAXone (ROCEPHIN) IVPB 1 g | Given | | 1 g | 100 | | | 1 g, Intravenous, Administer | | 8 21:27 | | mL/hr | | | over 30 Minutes, Every 24 Hours, | | PDT | | | | | First dose on 04/09/18 at 2000 | | | | | | + +-------+ +-----+-------+---+ +-------+ +-----+-------+---+ | Given | | 1 g | 100 | | | | 8 21:30 | | mL/hr | | | | PDT | | | | +-------+ +-----+-------+---+ | Given | | 1 g | 100 | | | | 8 19:49 | | mL/hr | | | | PDT | | | | +-------+ +-----+-------+---+ + +---+ | | | + +---+ | chlorhexidine gluconate 0.12 % | | | oral rinse 15 mL 15 mL, | | | Mouth/Throat, Every 12 Hours, | | | First dose on 04/09/18 at 2000 | | + +---+ | | | + +---+ + + + + +-------+---+ | dexmedetomidine in NS | Rate/Dos | | 0.3 | 6.5 | | | (PRECEDEX) 400 mcg/100mL infusion | e Change | 8 09:15 | mcg/kg/h | mL/hr | | | 0-1.5 mcg/kg/hr | | PDT | r | | | | 86.8 kg (0-32.55 mL/hr, rounded | | | | | | | to 0-32.6 mL/hr), Intravenous, at | | | | | | | 0-32.6 mL/hr, Titrated, Starting | | | | | | | 04/09/18 at 0530, In emergent | | | | | | | situations, more rapid titration | | | | | | | may be clinically indicated. | | | | | | + + + + +-------+---+ + + + +-------+---+ | Rate/Dose Change | | 0.2 | 4.3 | | | | 8 09:30 | mcg/kg/h | mL/hr | | | | PDT | r | | | + + + +-------+---+ | Rate/Dose Change | | 0.1 | 2.2 | | | | 8 09:45 | mcg/kg/h | mL/hr | | | | PDT | r | | | + + + +-------+---+ + +---+ | | | + +---+ | docusate (COLACE) 50 mg/5 mL | | | liquid 100 mg 100 mg, Per OG | | | Tube, 2 Times Daily, First dose | | | on 04/09/18 at 0900 | | + +---+ | | | + +---+ + +-------+ +--------+---+---+ | docusate sodium (COLACE) | Given | | 100 mg | | | | capsule 100 mg 100 mg, Oral, 2 | | 8 08:55 | | | | | Times Daily, First dose on Mon | | PDT | | | | | 04/09/18 at 0900 | | | | | | + +-------+ +--------+---+---+ +-------+ +--------+---+---+ | Given | | 100 mg | | | | | 8 20:26 | | | | | | PDT | | | | +-------+ +--------+---+---+ | Given | | 100 mg | | | | | 8 08:42 | | | | | | PDT | | | | +-------+ +--------+---+---+ +---+---+ | | | +---+---+ + + + +-------+---+---+ | enoxaparin (LOVENOX) injection | Given by | | 40 mg | | | | 40 mg 40 mg, Subcutaneous, Every | Other | 8 05:37 | | | | | 24 Hours, First dose on Mon | | PDT | | | | | 04/09/18 at 0500 | | | | | | + + + +-------+---+---+ +-------+ +-------+---+---+ | Given | | 40 mg | | | | | 8 08:55 | | | | | | PDT | | | | +-------+ +-------+---+---+ | Given | | 40 mg | | | | | 8 08:42 | | | | | | PDT | | | | +-------+ +-------+---+---+ +---+---+ | | | +---+---+ + +-------+ +-------+-------+---+ | famotidine (PEPCID) IVPB 20 mg | Given | | 20 mg | 100 | | | 20 mg, Intravenous, Administer | | 8 09:13 | | mL/hr | | | over 30 Minutes, 2 Times Daily, | | PDT | | | | | First dose on Mon04/09/18 at 0900 | | | | | | + +-------+ +-------+-------+---+ +---+---+ | | | +---+---+ + +-------+ +-------+---+---+ | famotidine (PEPCID) tablet 20 | Given | | 20 mg | | | | mg 20 mg, Oral, 2 Times Daily, | | 8 08:55 | | | | | First dose on Mon04/09/18 at 0900 | | PDT | | | | + +-------+ +-------+---+---+ +-------+ +-------+---+---+ | Given | | 20 mg | | | | | 8 20:26 | | | | | | PDT | | | | +-------+ +-------+---+---+ | Given | | 20 mg | | | | | 8 08:42 | | | | | | PDT | | | | +-------+ +-------+---+---+ + +---+ | | | + +---+ | fentaNYL (SUBLIMAZE) injection | | | 25 mcg 25 mcg, Intravenous, | | | Every 1 Hour PRN, Moderate Pain | | | (4-6), Starting 04/09/18 at | | | 2353 | | + +---+ | | | + +---+ + +-------+ +--------+---+---+ | fentaNYL (SUBLIMAZE) injection | Given | | 50 mcg | | | | 50 mcg 50 mcg, Intravenous, | | 8 20:26 | | | | | Every 1 Hour PRN, Severe Pain | | PDT | | | | | (02-06), Starting 04/09/18 at | | | | | | | 2353 | | | | | | + +-------+ +--------+---+---+ +-------+ +--------+---+---+ | Given | | 50 mcg | | | | | 8 23:57 | | | | | | PDT | | | | +-------+ +--------+---+---+ | Given | | 50 mcg | | | | | 8 08:42 | | | | | | PDT | | | | +-------+ +--------+---+---+ + +---+ | | | + +---+ | HYDROmorphone (DILAUDID) 1 | | | MG/ML injection Starting Mon | | | 04/09/18 at 0434, For 1 dose | | + +---+ | | | + +---+ + +-------+ +--------+---+---+ | HYDROmorphone (DILAUDID) | Given | | 0.5 mg | | | | injection 0.5 mg 0.5 mg, | | 8 12:43 | | | | | Intravenous, Every 3 Hours PRN, | | PDT | | | | | Moderate Pain (4-6), Starting Mon | | | | | | | 04/09/18 at 0710 | | | | | | + +-------+ +--------+---+---+ + +---+ | | | + +---+ | HYDROmorphone (DILAUDID) | | | injection 0.5 mg 0.5 mg, | | | Intravenous, Every 1 Hour PRN, | | | Moderate Pain (4-6), Starting Mon | | | 04/09/18 at 2338 | | + +---+ | | | + +---+ + +-------+ +------+---+---+ | HYDROmorphone (DILAUDID) | Given | | 1 mg | | | | injection 1 mg 1 mg, | | 8 04:35 | | | | | Intravenous, Every 1 Hour PRN, | | PDT | | | | | Severe Pain (02-06), Starting Mon | | | | | | | 04/09/18 at 0429 | | | | | | + +-------+ +------+---+---+ +-------+ +------+---+---+ | Given | | 1 mg | | | | | 8 07:10 | | | | | | PDT | | | | +-------+ +------+---+---+ +---+---+ | | | +---+---+ + +-------+ +------+---+---+ | HYDROmorphone (DILAUDID) | Given | | 1 mg | | | | injection 1 mg 1 mg, | | 8 23:12 | | | | | Intravenous, Every 3 Hours PRN, | | PDT | | | | | Severe Pain (7), Starting Mon | | | | | | | 04/09/18 at 0710 | | | | | | + +-------+ +------+---+---+ +---+---+ | | | +---+---+ + +-------+ +------+---+---+ | HYDROmorphone (DILAUDID) | Given | | 1 mg | | | | injection 1 mg 1 mg, | | 8 03:57 | | | | | Intravenous, Every 1 Hour PRN, | | PDT | | | | | Severe Pain (7-10), Starting Mon | | | | | | | 04/09/18 at 2338 | | | | | | + +-------+ +------+---+---+ +-------+ +------+---+---+ | Given | | 1 mg | | | | | 8 12:37 | | | | | | PDT | | | | +-------+ +------+---+---+ | Given | | 1 mg | | | | | 8 15:02 | | | | | | PDT | | | | +-------+ +------+---+---+ +---+---+ | | | +---+---+ + +-------+ +---------+---+---+ | ipratropium (ATROVENT HFA) | Given | | 6 puffs | | | | inhaler 6 puff 6 puff, | | 8 19:24 | | | | | Inhalation, 4 Times Daily, First | | PDT | | | | | dose on 04/09/18 at 1100 | | | | | | + +-------+ +---------+---+---+ +-------+ +---------+---+---+ | Given | | 6 puffs | | | | | 8 07:25 | | | | | | PDT | | | | +-------+ +---------+---+---+ | Given | | 6 puffs | | | | | 8 10:47 | | | | | | PDT | | | | +-------+ +---------+---+---+ + +---+ | | | + +---+ | labetalol (NORMODYNE) 5 mg/mL | | | injection 10 mg 10 mg, | | | Intravenous, Every 20 Min PRN, | | | SBP >150, Starting 04/09/18 at | | | 0810 | | + +---+ | | | + +---+ + +-------+ +------+---+---+ | LORazepam (ATIVAN) 2 MG/ML | Given | | 2 mg | | | | injection Starting 04/09/18 | | 8 05:29 | | | | | at 0518, For 1 dose | | PDT | | | | + +-------+ +------+---+---+ +---+---+ | | | +---+---+ + +-------+ +------+---+---+ | LORazepam (ATIVAN) injection 1 | Given | | 1 mg | | | | mg 1 mg, Intravenous, Every 4 | | 8 23:04 | | | | | Hours PRN, Anxiety, Starting Tue | | PDT | | | | | 04/10/18 at 2243 | | | | | | + +-------+ +------+---+---+ +-------+ +------+---+---+ | Given | | 1 mg | | | | | 8 03:57 | | | | | | PDT | | | | +-------+ +------+---+---+ + +---+ | | | + +---+ | magnesium sulfate 1 g/50 mL | | | IVPB 1 g, Intravenous, | | | Administer over 1 Hours, PRN, for | | | serum magnesium 1.9 to 2.1, | | | Starting 04/09/18 at 0432, | | | Recheck level immediately after | | | replacement and next am unless | | | previously ordered. | | + +---+ | | | + +---+ | magnesium sulfate 2 g/50 mL | | | IVPB 2 g, Intravenous, | | | Administer over 2 Hours, PRN, for | | | serum magnesium 1.6 to 1.8, | | | Starting 04/09/18 at 0432, | | | Recheck level immediately after | | | replacement and next am unless | | | previously ordered. | | + +---+ | | | + +---+ | magnesium sulfate 3 g/50 mL | | | IVPB 3 g, Intravenous, | | | Administer over 3 Hours, PRN, for | | | serum magnesium 1.2 to 1.5, | | | Starting 04/09/18 at 0432, | | | Recheck level immediately after | | | replacement and next am unless | | | previously ordered. | | + +---+ | | | + +---+ | magnesium sulfate IVPB 4 g 4 | | | g, Intravenous, Administer over 4 | | | Hours, PRN, for serum magnesium | | | less than or equal to 1.1, | | | Starting 04/09/18 at 0432, | | | Recheck level immediately after | | | replacement and next am unless | | | previously ordered. | | + +---+ | | | + +---+ + +-------+ +-------+---+---+ | methylPREDNISolone sodium | Given | | 40 mg | | | | succinate (Solu-MEDROL) injection | | 8 20:25 | | | | | 40 mg 40 mg, Intravenous, Every | | PDT | | | | | 8 Hours, First dose on Mon | | | | | | | 04/09/18 at 0530 | | | | | | + +-------+ +-------+---+---+ +-------+ +-------+---+---+ | Given | | 40 mg | | | | | 8 05:07 | | | | | | PDT | | | | +-------+ +-------+---+---+ | Given | | 40 mg | | | | | 8 12:37 | | | | | | PDT | | | | +-------+ +-------+---+---+ +---+---+ | | | +---+---+ + +-------+ +------+---+---+ | morphine (PF) injection 2 mg 2 | Given | | 2 mg | | | | mg, Intravenous, Every 2 Hours | | 8 05:29 | | | | | PRN, air hunger, Starting Mon | | PDT | | | | | 04/09/18 at 0515 | | | | | | + +-------+ +------+---+---+ + +---+ | | | + +---+ | nystatin (MYCOSTATIN) [id number] | | | units/mL suspension 500,000 Units | | | 500,000 Units (5 mL), | | | Mouth/Throat, 4 Times Daily PRN, | | | for thrush, Starting 04/09/18 | | | at 0428, Indications: | | | Oropharyngeal Candidiasis | | + +---+ | | | + +---+ | nystatin (MYCOSTATIN) cream | | | Topical, 3 Times Daily PRN, to | | | rash in skin folds, Starting Mon | | | 04/09/18 at 0428 | | + +---+ | | | + +---+ + +-------+ +------+---+---+ | ondansetron (ZOFRAN) injection | Given | | 4 mg | | | | 4 mg 4 mg, Intravenous, Every 6 | | 8 00:06 | | | | | Hours PRN, Nausea, Vomiting, | | PDT | | | | | Starting 04/09/18 at 0428 | | | | | | + +-------+ +------+---+---+ +-------+ +------+---+---+ | Given | | 4 mg | | | | | 8 12:49 | | | | | | PDT | | | | +-------+ +------+---+---+ + +---+ | | | + +---+ | ondansetron (ZOFRAN-ODT) | | | disintegrating tablet 4 mg 4 mg, | | | Oral, Every 6 Hours PRN, Nausea, | | | Vomiting, Starting 04/09/18 | | | at 0428 | | + +---+ | | | + +---+ | phosphorus (K PHOS NEUTRAL) | | | tablet 500 mg 500 mg, Oral, PRN, | | | for serum phosphate 2 to 2.2 (if | | | patient able to tolerate oral), | | | Starting Mon04/09/18 at 0435 | | + +---+ | | | + +---+ | polyethylene glycol (GLYCOLAX) | | | packet 17 g 17 g, Oral, Daily, | | | First dose on Mon04/10/18 at 1230 | | + +---+ | | | + +---+ | potassium chloride oral | | | solution 20 mEq 20 mEq, Oral, | | | PRN, for serum potasium 3.8 to 4, | | | Starting Mon04/09/18 at 0435 | | + +---+ | | | + +---+ | potassium chloride oral | | | solution 40 mEq 40 mEq, Oral, | | | PRN, for serum potassium 3.5 to | | | 3.7, Starting Mon04/09/18 at 0435 | | + +---+ | | | + +---+ + +-------+ +--------+---+---+ | potassium chloride oral | Given | | 60 mEq | | | | solution 60 mEq 60 mEq, Oral, | | 8 12:05 | | | | | PRN, for serum potassium less | | PDT | | | | | than 3.5, Starting 04/09/18 at | | | | | | | 0435 | | | | | | + +-------+ +--------+---+---+ +---+---+ | | | +---+---+ + +-------+ +--------+---+---+ | sodium bicarbonate 8.4 % | Given | | 50 mEq | | | | injection 50 mEq 50 mEq, | | 8 10:23 | | | | | Intravenous, Once, 04/09/18 at | | PDT | | | | | 0930, For 1 dose | | | | | | + +-------+ +--------+---+---+ +---+---+ | | | +---+---+ + +---------+ +---+ +---+ | sodium chloride 0.9 % infusion | New Bag | | | 75 mL/hr | | | at 75 mL/hr, Intravenous, | | 8 05:27 | | | | | Continuous, Starting 04/09/18 | | PDT | | | | | at 0500 | | | | | | + +---------+ +---+ +---+ +---------+ + + +---+ | New Bag | | | 75 mL/hr | | | | 8 18:44 | | | | | | PDT | | | | +---------+ + + +---+ | New Bag | | 75 mL/hr | 75 mL/hr | | | | 8 08:55 | | | | | | PDT | | | | +---------+ + + +---+ +---+---+ | | | +---+---+ + +-------+ +-------+---+---+ | sodium chloride 3 % nebulizer | Given | | 4 mLs | | | | solution 4 mL, Nebulization, | | 8 22:17 | | | | | Every 12 Hours, First dose on Mon | | PDT | | | | | 04/09/18 at 2130 | | | | | | + +-------+ +-------+---+---+ +-------+ +-------+---+---+ | Given | | 4 mLs | | | | | 8 11:03 | | | | | | PDT | | | | +-------+ +-------+---+---+ | Given | | 4 mLs | | | | | 8 21:21 | | | | | | PDT | | | | +-------+ +-------+---+---+ + +---+ | | | + +---+ | sodium chloride 3 % nebulizer | | | solution 4 mL, Nebulization, | | | Every 12 Hours PRN, for | | | increasing secretions, Starting | | | 04/11/18 at 1000 | | + +---+ | | | + +---+ | sodium phosphates 20 mmol in | | | sodium chloride (IV) 0.9 % 100 mL | | | IVPB 20 mmol, Intravenous, | | | Administer over 2 Hours, PRN, for | | | serum phosphate 2 to 2.2, | | | Starting 04/09/18 at 0435, | | | Recheck level: immediately after | | | replacement and next am lab draw | | | unless previously ordered. | | + +---+ | | | + +---+ | sodium phosphates 45 mmol in | | | sodium chloride (IV) 0.9 % 100 mL | | | IVPB 45 mmol, Intravenous, | | | Administer over 4.5 Hours, PRN, | | | for serum phosphate less than 2, | | | Starting 04/09/18 at 0435, | | | Recheck level: immediately after | | | replacement and next am lab draw | | | unless previously ordered. | | + +---+ | | | + +---+ + +-------+ +------+---+---+ | zolpidem (AMBIEN) tablet 5 mg | Given | | 5 mg | | | | 5 mg, Oral, Nightly PRN, Sleep, | | 8 01:11 | | | | | Starting 04/11/18 at 0055 | | PDT | | | | + +-------+ +------+---+---+ +---+---+ | | | +---+---+ in this encounter
--- OUTSIDE RECORDS SUMMARY | 2018-04-22 20:32 | XMS | Clinical Summary ---
Demographics + + + | Address | [address] | | | [place] [address] | + + + | Home Phone | | + + + | Preferred Language | Unknown | + + + | Marital Status | Single | + + + | Taoist Affiliation | Unknown | + + + | Race | Unknown | + + + | Ethnic Group | Unknown | + + + Author + + + | Author | [facility] | | | and [place] | + + + | Organization | [facility] | | | and [place] | + + + | Address | Unknown | + + + | Phone | Unavailable | + + + Support + + +---------+ + | Name | Relationship | Address | Phone | + + +---------+ + | Mary Fitzgerald ECON | Unknown | | + + +---------+ + Care Team Providers + +------+ + | Care Retinal Surgeon Name | Role | Phone | + +------+ + | Isaiah Marino MD | PP | | + +------+ + Allergies + + + + + + | Active Allergy | Reactions | Severity | Noted | Comments | | | | | Date | | + + + + + + | Bee Venom | Swelling | High | 11/05/19 | | | | | | 17 | | + + + + + + | Bupropion | Other (See Comments) | High | 11/05/19 | "Made depression | | | | | 17 | worse" | + + + + + + Current Medications + + +-------+---------+------+------+-------+ | Prescription | Sig. | Disp. | Refills | Star | End | Statu | | | | | | t | Date | s | | | | | | Date | | | + + +-------+---------+------+------+-------+ | Sodium Chloride | Inhale 4 mLs into | | | | | Activ | | (HYPERSAL) 3.5 % | the lungs Twice | | | | | e | | NEBU | daily as needed. | | | | | | + + +-------+---------+------+------+-------+ | budesonide | Take 0.5 mg by | | | | | Activ | | (PULMICORT) 0.5 mg/2 | nebulization Daily. | | | | | e | | mL nebulizer | | | | | | | | solution | | | | | | | + + +-------+---------+------+------+-------+ | EPINEPHrine | Inject 0.3 mg into | | | | | Activ | | auto-injector | the muscle as needed | | | | | e | | (EPIPEN 2-LOLY) 0.3 | for Anaphylaxis. | | | | | | | mg/0.3 mL injection | | | | | | | + + +-------+---------+------+------+-------+ | raNITIdine | Take 300 mg by mouth | | | | | Activ | | (ZANTAC) 300 MG | nightly. | | | | | e | | tablet | | | | | | | + + +-------+---------+------+------+-------+ | albuterol 2.5 mg/3 | Take 2.5 mg by | | | | | Activ | | mL nebulizer | nebulization every 4 | | | | | e | | solution | hours as needed for | | | | | | | | Shortness of | | | | | | | | Breath. | | | | | | + + +-------+---------+------+------+-------+ | DULoxetine | Take 60 mg by mouth | | | | | Activ | | (CYMBALTA) [address] | Daily. | | | | | e | | capsule | | | | | | | + + +-------+---------+------+------+-------+ | | Take 1 tablet by | | 0 | 10/0 | | Activ | | lisinopril-hydrochlo | mouth Daily. | | | 8/20 | | e | | rothiazide | | | | 17 | | | | (PRINZIDE,ZESTORETIC | | | | | | | | ) 20-12.5 MG per | | | | | | | | tablet | | | | | | | + + +-------+---------+------+------+-------+ | DULoxetine | Take 30 mg by mouth | | | | | Activ | | (CYMBALTA) [address] | Daily. | | | | | e | | capsule | | | | | | | + + +-------+---------+------+------+-------+ | loratadine | Take 10 mg by mouth | | | | | Activ | | (CLARITIN) 10 mg | Daily. | | | | | e | | tablet | | | | | | | + + +-------+---------+------+------+-------+ Active Problems + + + | Problem | Noted Date | + + + | Restrictive lung disease | 12/12/2017 | + + + Encounters +--------+ + + + + | Date | Type | Specialty | Care Team | Description | +--------+ + + + + | 04/08/ | Emergency | | Abel Du, | Acute on chronic | | 2018 - | | | MD Mendoza, | respiratory failure, | | | | | Marylou Lockwood MD | unspecified whether | | 04/09/ | | | | with hypoxia or | | 2017 | | | | hypercapnia (HCC) | | | | | | (Primary Dx); Mucus | | | | | | plugging of bronchi; | | | | | | Shortness of | | | | | | breath; Wheezing; | | | | | | Difficulty breathing | +--------+ + + + + from Last 3 Months Immunizations + + + + | Name | Dates Previously Given | Next Due | + + + + | INFLUENZA 65 Y OR >, | 04/24/2017 | | | TRIVALENT HIGH-DOSE | | | + + + + | INFLUENZA PF | 03/31/2016, 04/03/2015, 08/08/2013 | | | QUAD(PED/ADOL/ADULT) | | | | ,PSKT or VIAL | | | + + + + | PNEUMOCOCCAL | 03/31/2016 | | | CONJUGATE 13-VALENT | | | | (PCV13) | | | + + + + | PNEUMOCOCCAL | 04/02/2013 | | | POLYSACCHARIDE | | | | 23-VALENT (PPSV23) | | | + + + + Family History + + +------+ + | Medical History | Relation | Name | Comments | + + +------+ + | Bipolar disorder | Brother | | | + + +------+ + | Low Back Pain | Father | | BACK PROBLEMS | + + +------+ + | Other (see comment) | Father | | EYE PROBLEMS | + + +------+ + | Cancer | Mother | | adrenocarcinoma-left side | + + +------+ + | Hypertension | Mother | | | + + +------+ + | Other (see comment) | Mother | | kidney stones | + + +------+ + | Other (see comment) | Sister | | OVARIAN CYST | + + +------+ + + +------+--------+ + | Relation | Name | Status | Comments | + +------+--------+ + | Brother | | Alive | | + +------+--------+ + | Father | | Alive | | + +------+--------+ + | Mother | | Alive | | + +------+--------+ + | Sister | | Alive | | + +------+--------+ + Social History + +-------+ +--------+------+ | Tobacco Use | Types | Packs/Day | Years | Date | | | | | Used | | + +-------+ +--------+------+ | Never Smoker | | | | | + +-------+ +--------+------+ + +---+---+---+ | Smokeless Tobacco: | | | | | Never Used | | | | + +---+---+---+ + + | Tobacco Cessation: Counseling Given: No | + + + + +---------+ + | Alcohol Use | Drinks/We | oz/Week | Comments | | | ek | | | + + +---------+ + | Yes | 0 | 0.0 | every couple months | | | Standard | | | | | drinks or | | | | | | | | | | equivalen | | | | | t | | | + + +---------+ + + + + | Sex Assigned at | Date Recorded | | | | + + + | Not on file | | + + + Last Filed Vital Signs + + + + | Vital Sign | Reading | Time Taken | + + + + | Blood Pressure | 131/83 | 04/09/2018 0244 PDT | + + + + | Pulse | 99 | 04/09/2018129 PDT | + + + + | Temperature | 37.6 C (99.7 F) | 04/08/2018 1730 PDT | + + + + | Respiratory Rate | 16 | 04/09/2018129 PDT | + + + + | Oxygen Saturation | 98% | 04/09/2018 0130 PDT | + + + + | Inhaled Oxygen | - | - | | Concentration | | | + + + + | Weight | 86.6 kg (191 lb) | 04/08/20181729 PDT | + + + + | Height | 180.3 cm (5' 11") | 08/01/2017 1419 PST | + + + + | Body Mass Index | 26.64 | 04/08/20181729 PDT | + + + + Plan of Treatment +--------+ + + + + | Date | Type | Specialty | Care Team | Description | +--------+ + + + + | 04/27/ | Appointment | | Jose Barney, | | | 2017 | | | MD Rosalind Pugh | | | | | | [place]quel, Level [address] | | | | | | [place] | | | | | | [id number] | | | | | | | | +--------+ + + + + | 04/27/ | Office | | Jose Barney, | | | 2017 | Visit | | MD Rosalind Pugh | | | | | | [place]quel, [address] | | | | | | [place] | | | | | | [id number] | | | | | | | | +--------+ + + + + + + + + + | Health Maintenance | Due Date | Last Done | Comments | + + + + + | Vaccine: | | | | | Dtap/Tdap/Td (1 - | 5 | | | | Tdap) | | | | + + + + + | Statin Therapy | | | | | (optimal intensity) | 5 | | | + + + + + | Vaccine: Influenza | | 04/24/2017, 03/31/2016, | | | (#1) | 8 | 04/03/2015, Additional history | | | | | exists | | + + + + + Procedures + +--------+ + + + | Procedure Name | Priori | Date/Time | Associated Diagnosis | Comments | | | ty | | | | + +--------+ + + + | URINALYSIS WITH | Routin | 04/09/2018 | | Results for this | | MICROSCOPIC WITH | e | 0113 PDT | | procedure are in the | | CULTURE IF INDICATED | | | | results section. | + +--------+ + + + | ECG 12 LEAD | STAT | 04/08/2018 | | Results for this | | | | 2304 PDT | | procedure are in the | | | | | | results section. | + +--------+ + + + | LACTIC ACID | STAT | 04/08/2018 | | Results for this | | | | 1947 PDT | | procedure are in the | | | | | | results section. | + +--------+ + + + | CULTURE, BLOOD | STAT | 04/08/2018 | | Results for this | | | | 1947 PDT | | procedure are in the | | | | | | results section. | + +--------+ + + + | CULTURE, BLOOD | STAT | 04/08/2018 | | Results for this | | | | 1944 PDT | | procedure are in the | | | | | | results section. | + +--------+ + + + | CULTURE, | STAT | 04/08/2018 | | Results for this | | RESPIRATORY, LOWER, | | 1820 PDT | | procedure are in the | | SMEAR | | | | results section. | + +--------+ + + + | ECG 12 LEAD | STAT | 04/08/2018 | | Results for this | | | | 1811 PDT | | procedure are in the | | | | | | results section. | + +--------+ + + + | XR CHEST AP PORTABLE | STAT | 04/08/2018 | | Results for this | | | | 1756 PDT | | procedure are in the | | | | | | results section. | + +--------+ + + + | POC BLOOD GASES | Routin | 04/08/2018 | | Results for this | | | e | 1752 PDT | | procedure are in the | | | | | | results section. | + +--------+ + + + | EXTRA BLUE TOP TUBE | STAT | 04/08/2018 | | Results for this | | | | 1744 PDT | | procedure are in the | | | | | | results section. | + +--------+ + + + | EXTRA GOLD TOP TUBE | STAT | 04/08/2018 | | Results for this | | | | 1744 PDT | | procedure are in the | | | | | | results section. | + +--------+ + + + | B TYPE NATRIURETIC | STAT | 04/08/2018 | | Results for this | | PEPTIDE | | 1742 PDT | | procedure are in the | | | | | | results section. | + +--------+ + + + | TROPONIN I | STAT | 04/08/2018 | | Results for this | | | | 1742 PDT | | procedure are in the | | | | | | results section. | + +--------+ + + + | COMPREHENSIVE | STAT | 04/08/2018 | | Results for this | | METABOLIC PANEL | | 1742 PDT | | procedure are in the | | | | | | results section. | + +--------+ + + + | CBC WITH | STAT | 04/08/2018 | | Results for this | | DIFFERENTIAL | | 1742 PDT | | procedure are in the | | | | | | results section. | + +--------+ + + + | POC BLOOD GASES | Routin | 04/08/2018 | | Results for this | | | e | 1741 PDT | | procedure are in the | | | | | | results section. | + +--------+ + + + from Last 3 Months Results Urinalysis with Microscopic with Culture if Indicated (04/09/2018 0113) + + + + + | Component | Value | Ref Range | Performed At | + + + + + | COLOR | Yellow | Light Yellow, | [facility] | | | | Yellow, Straw | [facility] | | | | | [facility] - | | | | | LAB[facility]ATORY | + + + + + | CLARITY | Clear | Clear | [facility] | | | | | [facility] | | | | [facility] - | | | | | [facility]ATORY | + + + + + | PH UA | 5.0 | 5.0 - 8.0 | [facility] | | | | | [facility] | | | | [facility] - | | | | | LAB[facility]ATORY | + + + + + | Specific [place] | 1.026 | 1.001 - 1.030 | [facility] | | | | | [facility] | | | | [facility] - | | | | | LAB[facility]ATORY | + + + + + | PROTEIN UA | 30 mg/dL (A) | Negative | [facility] | | | | | [facility] | | | | [facility] - | | | | | LAB[facility]ATORY | + + + + + | BLOOD UA | Negative | Negative | [facility] | | | | | [facility] | | | | | [facility] - | | | | | LAB[facility]ATORY | + + + + + | GLUCOSE UA | Negative | Negative | [facility] | | | | | [facility] | | | | | [facility] - | | | | | LAB[facility]ORY | + + + + + | KETONES UA | 80 mg/dL (A) | Negative | [facility] | | | | | [facility] | | | | [facility] - | | | | | LAB[facility]ATORY | + + + + + | BILIRUBIN UA | Negative | Negative | [facility] | | | | | [facility] | | | | | [facility] - | | | | | LAB[facility]ATORY | + + + + + | NITRITE UA | Negative | Negative | [facility] | | | | | [facility] | | | | | [facility] - | | | | | LAB[facility]ATORY | + + + + + | LEUKOCYTES ESTERASE | Negative | Negative | [facility] | | UA | | | [facility] | | | | | [facility] - | | | | | LAB[facility]ATORY | + + + + + | UROBILINOGEN UA | 2.0 mg/dL (A) | 0.2 mg/dL, 1.0 | [facility] | | | | mg/dL, Negative | [facility] | | | | | [facility] - | | | | | LAB[facility]ATORY | + + + + + | WBC UA | 2-5 (A) | 0 - 2 /HPF | [facility] | | | | | [facility] | | | | | [facility] - | | | | | LAB[facility]ATORY | + + + + + | RBC UA | 0-2 | 0 - 2 /HPF | [facility] | | | | | [facility] | | | | | [facility] - | | | | | LAB[facility]ATORY | + + + + + | SQUAMOUS EPITHELIAL | 2-5 (A) | 0 - 2 /LPF | [facility] | | UA | | | [facility] | | | | | [facility] - | | | | | LAB[facility]ATORY | + + + + + | BACTERIA UA | Negative | Negative /HPF | [facility] | | | | | [facility] | | | | | [facility] - | | | | | LAB[facility]ATORY | + + + + + | MUCUS UA | Present (A) | Negative /LPF | [facility] | | | | | [facility] | | | | | [facility] - | | | | | LAB[facility]ATORY | + + + + + | URINE COMMENT | Urine Culture Not | | [facility] | | | Indicated | | [facility] | | | | | CENTER - | | | | | LABORATORY | + + + + + + + | Specimen | + + | Urine - Urine, Clean | | Catch | + + + + + + + | Performing | Address | City/State/Zipcode | Phone Number | | Organization | | | | + + + + + | [facility] | [address] | [place] | [phone] | | [facility] | | [address] | | | - LABORATORY | | | | + + + + + | [facility] | [address] | [place] | | | [facility] | | [address] | | | - LABORATORY | | | | + + + + + ECG 12 lead (04/08/20182303)Only the most recent of 2 results within the time period is in cluded. + + + + + | Component | Value | Ref Range | Performed At | + + + + + | VENTRICULAR RATE EKG | 85 | BPM | [facility] | + + + + + | ATRIAL RATE | 85 | BPM | [facility] | + + + + + | P-R INTERVAL | 128 | ms | [facility] | + + + + + | QRS DURATION | 96 | ms | [facility] | + + + + + | Q-T INTERVAL | 382 | ms | [facility] | + + + + + | Q-T INTERVAL | 454 | ms | [facility] | | (CORRECTED) | | | | + + + + + | P WAVE AXIS | 49 | degrees | [facility] | + + + + + | QRS AXIS | 21 | degrees | [facility] | + + + + + | T AXIS | 0 | degrees | [facility] | + + + + + | INTERPRETATION TEXT | Normal sinus | | [facility] | | | rhythmMinimal voltage | | | | | criteria for LVH, may be | | | | | normal | | | | | variantNonspecific ST | | | | | abnormality | | | | | Inferolateral leads | | | | | :cannot exclude | | | | | ischemiaAbnormal ECGWhen | | | | | compared with ECG of | | | | | 08-APR-2018 18:11, | | | | | (Unconfirmed)ST and T | | | | | wave abnormalities are | | | | | more prominent in | | | | | inferlateral leads | | | | | Confirmed by HORTENCIA SALEH, | | | | | [place] ([id number]) on | | | | | 04/09/2018 8:07:47 AM | | | + + + + + + + + | Narrative | Performed At | + + + | | | + + + + +---------+ + + | Performing | Address | City/State/Zipcode | Phone Number | | Organization | | | | + +---------+ + + | [facility] | | | | + +---------+ + + Culture, Blood (04/08/20181946)Only the most recent of 2 results within the time period is included. + + + + + | Component | Value | Ref Range | Performed At | + + + + + | Culture | No growth after 5 days | | [facility] | | | incubation. | | [facility] | | | | | CENTER - | | | | | LABORATORY | + + + + + + + | Specimen | + + | Blood | + + + + + + + | Performing | Address | City/State/Zipcode | Phone Number | | Organization | | | | + + + + + | [facility] | [address] | [place] | [phone] | | [facility] | | [address] | | | - LABORATORY | | | | + + + + + | [facility] | [address] | [place] | | | [facility] | | [address] | | | - LABORATORY | | | | + + + + + Lactic Acid (04/08/20181946) + +-------+ + + | Component | Value | Ref Range | Performed At | + +-------+ + + | LACTATE | 1.2 | 0.5 - 2.2 mmol/L | [facility] | | | | | [facility] | | | | | CENTER - | | | | | LABORATORY | + +-------+ + + + + | Specimen | + + | Blood | + + + + + + + | Performing | Address | City/State/Zipcode | Phone Number | | Organization | | | | + + + + + | [facility] | [address] | [place] | [phone] | | [facility] | | [address] | | | - LABORATORY | | | | + + + + + | [facility] | [address] | [place], [place] | | | [facility] | | [address] | | | - LABORATORY | | | | + + + + + Culture, Respiratory, Lower, Smear (04/08/2018 1820) + + + + + | Component | Value | Ref Range | Performed At | + + + + + | Culture | 2+ Serratia | | [facility] | | | marcescensComment: | | [facility] | | | Consider combination | | CENTER - | | | therapy for serious | | LABORATORY | | | infections. | | | + + + + + | Culture | 2+ Pseudomonas | | [facility] | | | aeruginosaComment: | | [facility] | | | Consider therapy with | | CENTER - | | | maximum doses of an | | LABORATORY | | | anti-pseudomonal | | | | | penicillin | | | | | (carboxypenicillin or | | | | | ureidopenicillin) or | | | | | ceftazidime in | | | | | combination with an | | | | | aminoglycoside for | | | | | serious infections. This | | | | | organism is known to | | | | | possess inducible | | | | | beta-lactamases. | | | | | Isolates may become | | | | | resistant to all | | | | | cephalosporins after | | | | | initiation of therapy. | | | | | Avoid | | | | | beta-lactam/beta-lactama | | | | | se inhibitor | | | | | combinations. | | | + + + + + | Gram Stain Result | 3+ White Blood Cells | | [facility] | | | | | [facility] | | | | | CENTER - | | | | | LABORATORY | + + + + + | Gram Stain Result | 2+ Epithelial cells | | [facility] | | | | | [facility] | | | | | CENTER - | | | | | LABORATORY | + + + + + | Gram Stain Result | 1+ Gram negative rods | | [facility] | | | | | [facility] | | | | | CENTER - | | | | | LABORATORY | + + + + + + + | Specimen | + + | Body Fluid - Sputum, | | Expectorated | + + + + +--------+ + | Organism | Antibiotic | Method | Susceptibility | + + +--------+ + | Serratia marcescens | Cefazolin | | >=64 ug/mL: | | | | | Resistant | + + +--------+ + | Serratia marcescens | Cefepime | | <=1 ug/mL: | | | | | Sensitive | + + +--------+ + | Serratia marcescens | Cefoxitin | | Resistant | + + +--------+ + | Serratia marcescens | Ceftazidime | | <=1 ug/mL: | | | | | Sensitive | + + +--------+ + | Serratia marcescens | Ceftriaxone | | <=1 ug/mL: | | | | | Sensitive | + + +--------+ + | Serratia marcescens | Ciprofloxacin | | <=0.25 ug/mL: | | | | | Sensitive | + + +--------+ + | Serratia marcescens | Ertapenem | | <=0.5 ug/mL: | | | | | Sensitive | + + +--------+ + | Serratia marcescens | Gentamicin | | <=1 ug/mL: | | | | | Sensitive | + + +--------+ + | Serratia marcescens | Meropenem | | <=0.25 ug/mL: | | | | | Sensitive | + + +--------+ + | Serratia marcescens | Tobramycin | | <=1 ug/mL: | | | | | Sensitive | + + +--------+ + | Serratia marcescens | Trimethoprim + | | <=20 ug/mL: | | | Sulfamethoxazole | | Sensitive | + + +--------+ + | Pseudomonas | Ceftazidime | | <=1 ug/mL: | | aeruginosa | | | Sensitive | + + +--------+ + | Pseudomonas | Ciprofloxacin | | <=0.25 ug/mL: | | aeruginosa | | | Sensitive | + + +--------+ + | Pseudomonas | Gentamicin | | <=1 ug/mL: | | aeruginosa | | | Sensitive | + + +--------+ + | Pseudomonas | Tobramycin | | <=1 ug/mL: | | aeruginosa | | | Sensitive | + + +--------+ + + + + + + | Performing | Address | City/State/Zipcode | Phone Number | | Organization | | | | + + + + + | [facility] | [address] | [place], [place] | [phone] | | [facility] | | [address] | | | - LABORATORY | | | | + + + + + | [facility] | [address] | [place], [place] | | | [facility] | | [address] | | | - LABORATORY | | | | + + + + + XR Chest AP Portable (04/08/2018 1756) + + + | Narrative | Performed At | + + + | XR CHEST AP PORTABLE 04/08/2018 5:46 PM HISTORY: DIFFICULTY | [facility] | | BREATHING COUGH FEVER (9 WEEKS TO 74 YEARS). COMPARISON: | | | 06/28/2016 Findings: Tracheostomy tube terminates in the upper | | | trachea. Lungs are generally clear with the exception of subtle | | | prominence of the central interstitial markings which is a | | | long-standing/chronic finding. No evidence of pneumothorax or pleural | | | effusion. Similar posterior spinal fixation hardware. Heart is normal | | | in size. No acute osseous abnormality. IMPRESSION - No acute | | | intrathoracic abnormality identified. Long-standing slight | | | prominence of the central interstitial markings. Dictated and | | | Signed by: Maycol Willoughby MD Electronically signed: 04/09/2018 | | | 6:34 AM | | + + + + + | Procedure Note | + + | Marcial, Rad Results In - 04/09/2018 0637 PDT XR CHEST AP PORTABLE 04/08/2018 5:46 PM | | | | HISTORY: DIFFICULTY BREATHING | | COUGH | | FEVER (9 WEEKS TO 74 YEARS). | | | | COMPARISON: 06/28/2016 | | | | Findings: Tracheostomy tube terminates in the upper trachea. Lungs are generally | | clear with the exception of subtle prominence of the central interstitial | | markings which is a long-standing/chronic finding. No evidence of pneumothorax | | or pleural effusion. Similar posterior spinal fixation hardware. Heart is normal | | in size. No acute osseous abnormality. | | | | IMPRESSION - | | No acute intrathoracic abnormality identified. | | | | Long-standing slight prominence of the central interstitial markings. | | | | Dictated and Signed by: Maycol Willoughby MD | | Electronically signed: 04/09/2018 6:34 AM | + + + +---------+ + + | Performing | Address | City/State/Zipcode | Phone Number | | Organization | | | | + +---------+ + + | [facility] | | | | + +---------+ + + POC Blood Gases (04/08/2018 908)Only the most recent of 2 results within the time period i s included. + + + + + | Component | Value | Ref Range | Performed At | + + + + + | Specimen Source | Vein | | [facility] | | | | | [facility] | | | | | [facility] - | | | | | LABORATORY | + + + + + | pH, POC | 7.444 | 7.3 - 7.45 | [facility] | | | | | [facility] | | | | | C[facility] - | | | | | LABORATORY | + + + + + | HCO3, POC | 16.8 (L) | 21.0 - 28.0 mmol/L | [facility] | | | | | [facility] | | | | | C[facility] - | | | | | LABORATORY | + + + + + | TCO2, POC | 17.5 (L) | 22.0 - 29.0 mmol/L | [facility] | | | | | [facility] | | | | | CENTER - | | | | | LABORATORY | + + + + + | Base Excess, POC | -5.0 (L) | -2.0 - 3.0 mmol/L | [facility] | | | | | [facility] | | | | | CENTER - | | | | | LABORATORY | + + + + + | Base Excess, | -7.3 (L) | -2.0 - 3.0 mmol/L | [facility] | | Extracellular fluid, | | | [facility] | | POC | | | CENTER - | | | | | LABORATORY | + + + + + | O2 Sat, POC | 74 (L) | 90 - 100 % | [facility] | | | | | [facility] | | | | | CENTER - | | | | | LABORATORY | + + + + + | PCO2, POC | 24.5 (L) | 35 - 45 mmHg | [facility] | | | | | [facility] | | | | | CENTER - | | | | | LABORATORY | + + + + + | PO2, POC | 36.5 (L) | 60 - 750.0 mmHg | [facility] | | | | | [facility] | | | | | CENTER - | | | | | LABORATORY | + + + + + + + | Specimen | + + | Blood | + + + + + + + | Performing | Address | City/State/Zipcode | Phone Number | | Organization | | | | + + + + + | [facility] | [address] | [place] | [phone] | | [facility] | | [address] | | | - LABORATORY | | | | + + + + + | [facility] | [address] | [place], [place] | | | [facility] | | [address] | | | - LABORATORY | | | | + + + + + Extra Gold Top Tube (04/08/2018 174) + +-------+ + + | Component | Value | Ref Range | Performed At | + +-------+ + + | EGDT | Done | | [facility] | | | | | [facility] | | | | | CENTER - | | | | | LABORATORY | + +-------+ + + + + | Specimen | + + | Blood | + + + + + + + | Performing | Address | City/State/Zipcode | Phone Number | | Organization | | | | + + + + + | [facility] | [address] | [place] | [phone] | | [facility] | | [address] | | | - LABORATORY | | | | + + + + + | [facility] | [address] | [place] | | | [facility] | | [address] | | | - LABORATORY | | | | + + + + + Extra Blue Top Tube (04/08/2018 1744) + +-------+ + + | Component | Value | Ref Range | Performed At | + +-------+ + + | Extra Blue Top Tube | Done | | [facility] | | | | | [facility] | | | | | CENTER - | | | | | LABORATORY | + +-------+ + + + + | Specimen | + + | Blood | + + + + + + + | Performing | Address | City/State/Zipcode | Phone Number | | Organization | | | | + + + + + | [facility] | [address] | [place] | [phone] | | [facility] | | [address] | | | - LABORATORY | | | | + + + + + | [facility] | [address] | [place] | | | [facility] | | [address] | | | - LABORATORY | | | | + + + + + Troponin I (04/08/2018 174) + + + + + | Component | Value | Ref Range | Performed At | + + + + + | Troponin I | <0.01Comment: Reference | <0.06 ng/mL | [facility] | | | Ranges:0.00-0.06 = | | [facility] | | | NORMAL>0.06 = | | CENTER - | | | SUSPICIOUS FOR | | LABORATORY | | | MYOCARDIAL DAMAGE NOTE: | | | | | Values greater than 0.50 | | | | | ng/mL have been shown | | | | | to be strongly | | | | | associated with acute | | | | | myocardial infarction. | | | | | [employer] | | | | | Cardiology (ACC) | | | | | recommends a decision | | | | | limit of 0.06 ng/mL for | | | | | this assay. Results | | | | | greater than 0.06 can | | | | | reflect a pre-infarct | | | | | acute coronary syndrome, | | | | | but can also reflect | | | | | myocardial necrosis or | | | | | injury that is not due | | | | | to coronary artery | | | | | disease. Some of | | | | | these causes are sepsis, | | | | | hypocolemia, atrial | | | | | fibrillation, heart | | | | | failure, pulmonary | | | | | embolism, myocarditis, | | | | | myocardial contusion, | | | | | and renal | | | | | failure. The | | | | | diagnosis of myocardial | | | | | infarction should be | | | | | based on a combination | | | | | of the patient's | | | | | clinical presentation | | | | | and the clinical | | | | | laboratory test results | | | | | (especially serial | | | | | troponin levels). | | | + + + + + + + | Specimen | + + | Blood | + + + + + + + | Performing | Address | City[facility]State[facility] | Phone Number | | Organization | | | | + + + + + | [facility] | [address] | [place], [place] | [phone] | | [facility] | | [address] | | | - LABORATORY | | | | + + + + + | [facility] | [address] | [place], [place] | | | [facility] | | [address] | | | - LABORATORY | | | | + + + + + CBC with Differential (04/08/20181741) + + + + + | Component | Value | Ref Range | Performed At | + + + + + | WBC | 14.4 (H) | 4.0 - 11.0 K/uL | [facility] | | | | | [facility] | | | [facility] - | | | | | LABORATORY | + + + + + | RBC | 5.60 | 4.30 - 5.70 M/uL | [facility] | | | | | [facility] | | [facility] | [facility] - | | | | | LABORATORY | + + + + + | Hgb | 16.2 | 13.5 - 18.0 g/dL | [facility] | | | | | [facility] | | | | [facility] - | | | | | LABORATORY | + + + + + | Hct | 47.9 | 40.0 - 51.0 % | [facility] | | | | | [facility] | | | | [facility] - | | | | | LABORATORY | + + + + + | MCV | 85.5 | 83.0 - 101.0 fL | [facility] | | | | | [facility] | | | [facility] - | | | | | LABORATORY | + + + + + | MCH | 28.9 | 28.0 - 35.0 pg | [facility] | | | | | [facility] | | | | | [facility] - | | | | | LABORATORY | + + + + + | MCHC | 33.8 | 32.0 - 36.0 g/dL | [facility] | | | | | [facility] | | | | [facility] - | | | | | LABORATORY | + + + + + | RDW-CV | 14.5 | <15.0 % | [facility] | | | | | [facility] | | | | [facility] - | | | | | LABORATORY | + + + + + | Platelet Count | 314 | 140 - 440 K/uL | [facility] | | | | | [facility] | | | [facility] - | | | | | LABORATORY | + + + + + | MPV | 7.6 | fL | [facility] | | | | | [facility] | | [facility] - | | | | | LABORATORY | + + + + + | % Neutrophils | 81.8 | 45.0 - 82.0 % | [facility] | | | | | [facility] | | | | [facility] - | | | | | LABORATORY | + + + + + | % Lymphocytes | 12.6 (L) | 20.0 - 45.0 % | [facility] | | | | | [facility] | | | | | [facility] - | | | | | LABORATORY | + + + + + | % Monocytes | 4.9 | 4.0 - 12.0 % | [facility] | | | | | [facility] | | | | | [facility] - | | | | | LABORATORY | + + + + + | % Eosinophils | 0.2 | 0.0 - 5.0 % | [facility] | | | | | [facility] | | | | [facility] - | | | | | LABORATORY | + + + + + | % Basophils | 0.5 | 0.0 - 1.0 % | [facility] | | | | | [facility] | | | | | [facility] - | | | | | LABORATORY | + + + + + | Absolute Neutrophils | 11.80 (H) | 1.80 - 8.50 K/uL | [facility] | | | | | [facility] | | | [facility] - | | | | | LABORATORY | + + + + + | Absolute Lymphocytes | 1.80 | 0.60 - 3.20 K/uL | [facility] | | | | | [facility] | | | | [facility] - | | | | | LABORATORY | + + + + + | Absolute Monocytes | 0.70 | 0.00 - 1.00 K/uL | [facility] | | | | | [facility] | | | | [facility] - | | | | | LABORATORY | + + + + + | Absolute Eosinophils | 0.00 | 0.00 - 0.40 K/uL | [facility] | | | | | [facility] | | | | | [facility] - | | | | | LABORATORY | + + + + + | Absolute Basophils | 0.10 | 0.00 - 0.10 K/uL | [facility] | | | | | [facility] | | | | [facility] - | | | | | LABORATORY | + + + + + + + | Specimen | + + | Blood | + + + + + + + | Performing | Address | City/State/Zipcode | Phone Number | | Organization | | | | + + + + + | [facility] | [address] | [place] | [phone] | | [facility] | | [address] | | | - LABORATORY | | | | + + + + + | [facility] | [address] | [place] | | | [facility] | | [address] | | | - LABORATORY | | | | + + + + + B Type Natriuretic Peptide (04/08/20181741) + +-------+ + + | Component | Value | Ref Range | Performed At | + +-------+ + + | BNP | 33 | <100 pg/mL | [facility] | | | | | [facility] | | | | | CENTER - | | | | | LABORATORY | + +-------+ + + + + | Specimen | + + | Blood | + + + + + + + | Performing | Address | City/State/Zipcode | Phone Number | | Organization | | | | + + + + + | [facility] | [address] | [place], [place] | [phone] | | [facility] | | [address] | | | - LABORATORY | | | | + + + + + | [facility] | [address] | [place], [place] | | | [facility] | | [address] | | | - LABORATORY | | | | + + + + + Comprehensive Metabolic Panel (04/08/20181741) + + + + + | Component | Value | Ref Range | Performed At | + + + + + | NA | 138 | 136 - 149 mmol/L | [facility] | | | | | [facility] | | | [facility] - | | | | | LABORATORY | + + + + + | K | 3.4 (L) | 3.5 - 5.1 mmol/L | [facility] | | | | | [facility] | | | | | [facility] - | | | | | LABORATORY | + + + + + | CL | 107 | 98 - 109 mmol/L | [facility] | | | | | [facility] | | | | | [facility] - | | | | | LABORATORY | + + + + + | CO2 | 18 (L) | 24 - 31 mmol/L | [facility] | | | | | [facility] | | | | | [facility] - | | | | | LABORATORY | + + + + + | ANION GAP | 13 | 3 - 16 mmol/L | [facility] | | | | | [facility] | | | | | [facility] - | | | | | LABORATORY | + + + + + | GLUCOSE | 106 | 70 - 109 mg/dL | [facility] | | | | | [facility] | | | | | [facility] - | | | | | LABORATORY | + + + + + | BUN | 11 | 7 - 18 mg/dL | [facility] | | | | | [facility] | | | | | CENTER - | | | | | LABORATORY | + + + + + | Creatinine, | 0.58 (L) | 0.60 - 1.30 mg/dL | [facility] | | Serum/Plasma | | | [facility] | | | | | CENTER - | | | | | LABORATORY | + + + + + | eGFR if not | >60Comment: GLOMERULAR | >=60 mL/min/1.73m2 | [facility] | | VINCENTIAN | FILTRATION | | [facility] | | | RATE,ESTIMATED mL/min | | CENTER - | | | /1.72c5Mpwx than 60 | | LABORATORY | | | Chronic kidney | | | | | disease,if found over a | | | | | 3-month period.Less than | | | | | 15 Kidney | | | | | failureFor | | | | | Americans,multiply the | | | | | calculated GFR by 1.21. | | | | | | | | + + + + + | CALCIUM | 10.2 | 8.3 - 10.5 mg/dL | [facility] | | | | | [facility] | | | | | [facility] - | | | | | LABORATORY | + + + + + | ALBUMIN | 5.2 (H) | 3.2 - 5.0 g/dL | [facility] | | | | | [facility] | | | | | C[facility] - | | | | | LABORATORY | + + + + + | Bilirubin Total | 2.1 (H)Comment: This is | 0.1 - 1.5 mg/dL | [facility] | | | an appended report. | | [facility] | | | These results have been | | CENTER - | | | appended to a previously | | LABORATORY | | | preliminary verified | | | | | report. | | | + + + + + | Total protein | 8.7 (H) | 6.0 - 7.8 g/dL | [facility] | | | | | [facility] | | | | | C[facility] - | | | | | LABORATORY | + + + + + | AST | 32Comment: This is an | 10 - 42 U/L | [facility] | | | appended report. These | | [facility] | | | results have been | | CENTER - | | | appended to a previously | | LABORATORY | | | preliminary verified | | | | | report. | | | + + + + + | ALT | 29Comment: This is an | 6 - 45 U/L | [facility] | | | appended report. These | | [facility] | | | results have been | | CENTER - | | | appended to a previously | | LABORATORY | | | preliminary verified | | | | | report. | | | + + + + + | ALK PHOS | 35 (L)Comment: This is | 40 - 110 U/L | [facility] | | | an appended report. | | [facility] | | | These results have been | | CENTER - | | | appended to a previously | | LABORATORY | | | preliminary verified | | | | | report. | | | + + + + + | GLOBULIN | 3.5 | 2.1 - 3.8 g/dL | [facility] | | | | | [facility] | | | | | C[facility] - | | | | | LABORATORY | + + + + + | Albumin/Globulin | 1.5 | 0.8 - 2.0 | [facility] | | ratio | | | [facility] | | | | | CENTER - | | | | | LABORATORY | + + + + + | BUN/CREA | 19.0 | | [facility] | | | | | [facility] | | | | | [facility] - | | | | | LABORATORY | + + + + + + + | Specimen | + + | Blood | + + + + + + + | Performing | Address | City/State/Zipcode | Phone Number | | Organization | | | | + + + + + | [facility] | [address] | [place], [place] | [phone] | | [facility] | | [address] | | | - LABORATORY | | | | + + + + + | [facility] | [address] | [place], [place] | | | [facility] | | [address] | | | - LABORATORY | | | | + + + + + from Last 3 Months Insurance + +--------+ +--------+ +---------+ | Payer | Benefi | Subscriber | Type | Phone | Address | | | t Plan | ID | | | | | | / | | | | | | | Group | | | | | + +--------+ +--------+ +---------+ | MEDICARE | MEDICA | [id number] | Medica | +- | | | | RE | | re | [phone] | | | | PART A | | | | | | | AND B | | | | | + +--------+ +--------+ +---------+ | [employer] | MODA | [id number] | Medica | [id number] | | MEDICAID HMO | HEALTH | | id | [id number] | | | | MDCD | | | | | | | [place] | | | | | + +--------+ +--------+ +---------+ + +--------+ +--------+ + + | Guarantor Name | Accoun | Relation to | Date | Phone | Billing Address | | | t Type | Patient | of | | | | | | | | | | + +--------+ +--------+ + + | VENU FITZGERALD | Person | Self [birth year] Home: | [address] | | [place] | rehana/Jakob | | 1995 | [phone] [address], | | | [place] | | | [phone] | [place] [phone] | + +--------+ +--------+ + +
--- OUTSIDE RECORDS SUMMARY | 2018-04-22 20:32 | XMS | Encounter Summary ---
Demographics + + + | Address | [address] | | | [place] [address] | + + + | Home Phone | | + + + | Preferred Language | Unknown | + + + | Marital Status | Single | + + + | Catholic Affiliation | Unknown | + + + | Race | Unknown | + + + | Ethnic Group | Unknown | + + + Author + + + | Author | [facility] | + + + | Organization | [facility] | + + + | Address | Unknown | + + + | Phone | Unavailable | + + + Support + + +---------+ + | Name | Relationship | Address | Phone | + + +---------+ + | Mary Tran | ECON | Unknown | | + + +---------+ + Care Team Providers + +------+ + | Care Serging Machine Operator Name | Role | Phone | + [...] | | Internal | Diagnoses | | [facility] 9 | | | | Medicine | pneumonia | | [address] | | | | | | | [address] | | | | | | | [address] | | | | | | | [place], [place] | | | | | | | [address] Phone: | | | | | | | [phone] | +--------+--------+ + + + + Encounter Details +--------+ + + + + | Date | Type | Department | Care Team | Description | +--------+ + + + + | 04/09/ | Hospital | [facility] | Clau Wade DO | | | 2018 - | Encounter | [facility] | [address] | | | | | [facility] | [place] [address] | | | 04/11/ | | [address] | [phone] | | | 2017 | | [place] [address] | | | | | | [phone] | | | +--------+ + + + [...] may be different f rom the original. [facility] Service: Gear Grinder Discharge Summary Venu Nicolas Chelsea 22 y.o. [...] arm paresis, dysautonomia, chronic respiratory failure with ferry terminal agent tracheosto my tube (Bivona 5.0 cuffless) with [...] ventilator. He presented to the ED at [place] and was given 3 albuterol neb treatments, [...] rash) LINES/TUBES:PIVs Mark Phillips MD [address] [facility] [place] [address] Mark Phillips MD [address] [facility], [address] [place] [address] Schedule an appointment as soon as possible for a visit in 2 days Disposition: Stable to be discharged home. Instructions to patient career services coordinator: Please monitor vitals and pulse oximetry at [...] in this encounter Discharge Instructions Kellee Aviles, AUTO BODY WORKER - 04/11/2018Instructions to patient career services coordinator: Please monitor vitals and pulse oximetry at [...] may be different f rom the original. [facility] Service: Gear Grinder Progress Note Hospital Day: LOS: 1 day Post-Op Day: * No surgery found * SUBJECTIVE Patient Summary: The patient is a 22 y.o. male with significant past medical history of transverse myelitis with Left arm paresis, dysautonomia, chronic respiratory failure wit h fdc tracheostomy tube (Bivona 5.0 cuffless) with home [...] lator. He presented to the ED at [place] and was given 3 albuterol neb treatments, [...] Testing | 65 - 99 mg/dL | [facility] | | | performed at [facility];[address] | | | | | [address];[place] | | | | | [address] | | | + + + + + + + + + + | Performing | Address | City/State/Zipcode | Phone Number | | Organization | | | | + + + + + | [facility] | [address] | [facility] [place] [place] [address] | | + + + + + [...] | [facility] | | | performed at [facility], [facility] [address] | | LABORATORY | | | [facility] [address], | | | | | [place] [address] | | | + + + + + + + | Specimen | + + | Blood | + + + + + + + | Performing | Address | City/State/Zipcode | Phone Number | | Organization | | | | + + + + + | [facility] | [address] | [place] [address] | [phone] | | LABORATORY | [address]vd[address] | | [...] 18 | 5 - 20 mmol/L | [facility] | | | | | LABORATORY | + + + + + | GLUCOSE | 108 (H) | 65 - 99 mg/dL | [facility] | | | | | LABORATORY | + + + + + | BUN | 12 | 8 - 25 mg/dL | [facility] | | | | | LABORATORY | [...] | | | | | performed at [facility], [address] | | | | | [facility], | | | | | [place] [address] | | | + + + + + + + | Specimen | + + | Blood | + + + + + + + | Performing | Address | City/State/Zipcode | Phone Number | | Organization | | | | + + + + + | [facility] | [address] | [place] [address] | [phone] | | LABORATORY | [address]vd[address] | | | + + + + + Phosphorus (04/11/2018 4:17 AM) + + + + + | Component | Value | Ref Range | Performed At | + + + + + | PHOSPHORUS | 3.5Comment: Testing | 2.3 - 4.8 mg/dL | [facility] | | | performed at [facility], [address] | | LABORATORY | | | [address], | | | | | [place] [address] | | | + + + + + + + | Specimen | + + | Blood | + + + + + + + | Performing | Address | City/State/Zipcode | Phone Number | | Organization | | | | + + + + + | [facility] | [address] | [place] [address] | [phone] | | LABORATORY | Blvd. | | | + + + + + Magnesium (04/11/2018 4:17 AM) + + + + + | Component | Value | Ref Range | Performed At | + + + + + | MAGNESIUM | 2.2Comment: Testing | 1.7 - 2.4 mg/dL | [facility] | | | performed at [facility], [address] | | LABORATORY | | | [facility], | | | | | [place] [address] | | | + + + + + + + | Specimen | + + | Blood | + + + + + + + | Performing | Address | City/State/Zipcode | Phone Number | | Organization | | | | + + + + + | [facility] | [address] | [place] [address] | [phone] | | LABORATORY | Blvd. | | [...] PIETRO VALENZUELA | [address] | [place] [address] | | + + + + + [...] SPECIMEN | 0.0 - 0.3 mg/dL | [facility] | | | SLIGHTLY HEMOLYZED | | [...] | | | | | performed at [facility], [address] | | | | | [address], | | | | | [place] [address] | | | + + + + + + + + + + | Performing | Address | City/State/Zipcode | Phone Number | | Organization | | | | + + + + + | [facility] | [address] | [place] [address] | [phone] | | LABORATORY | Blvd. | | [...] | [facility] | | | performed at [facility], [address] | | LABORATORY | | | [address], | | | | | [place] [address] | | | + + + + + + + | Specimen | + + | Blood | + + + + + + + | Performing | Address | City/State/Zipcode | Phone Number | | Organization | | | | + + + + + | [facility] | [address] | [place] [address] | [phone] | | LABORATORY | Blvd. | | [...] >60Comment: GFR <60: | >60 mL/min/1.73m2 | [facility] | | | CHRONIC KIDNEY DISEASE, | [...] | | | | | performed at [facility], [address] | | | | | [facility], | | | | | [place] [address] | | | + + + + + + + | Specimen | + + | Blood | + + + + + + + | Performing | Address | City/State/Zipcode | Phone Number | | Organization | | | | + + + + + | [facility] | [address] | [place] [address] | [phone] | | LABORATORY | Blvd. | | | + + + + + Phosphorus (04/10/2018 3:53 AM) + + + + + | Component | Value | Ref Range | Performed At | + + + + + | PHOSPHORUS | 3.5Comment: SPECIMEN | 2.3 - 4.8 mg/dL | [facility] | | | SLIGHTLY | | LABORATORY | | | HEMOLYZEDTesting | | | | | performed at [facility], [address] | | | | | [facility] [address], | | | | | [place] [address] | | | + + + + + + + | Specimen | + + | Blood | + + + + + + + | Performing | Address | City/State/Zipcode | Phone Number | | Organization | | | | + + + + + | [facility] | [address] | [place] [address] | [phone] | | LABORATORY | Blvd. | | [...] | | | | | performed at [facility], [address] | | | | | [address], | | | | | [place] [address] | | | + + + + + + + | Specimen | + + | Blood | + + + + + + + | Performing | Address | City/State/Zipcode | Phone Number | | Organization | | | | + + + + + | [facility] | [address] | [place] [address] | [phone] | | LABORATORY | Blvd. | | [...] + + + | [facility] | [address] | [place] [address] | [phone] | | LABORATORY | Blvd. | | | + + + + + Potassium (04/09/2018 5:09 PM) + + + + + | Component | Value | Ref Range | Performed At | + + + + + | POTASSIUM | 4.7Comment: Testing | 3.5 - 4.9 mmol/L | [facility] | | | performed at [facility];[address] | | | | | [address];[place] | | | | | [address] | | | + + + + + + + | Specimen | + + | Blood | + + + + + + + | Performing | Address | City/State/Zipcode | Phone Number | | Organization | | | | + + + + + | [facility] | [address] | [place] [address] | | + + + + + [...] INTERP | Testing performed by | | [facility] | | | Molecular | | LABORATORY | | | MethodologyComment: | | | | | Testing performed at | | | | | [facility], [address] | | | | | [place] | | | | | [address] | | | + + + + + + + | Specimen | + + | Nasal Swab | + + + + + + + | Performing | Address | City/State/Zipcode | Phone Number | | Organization | | | | + + + + + | [facility] | [address] | [place] [address] | [phone] | | LABORATORY | Blvd. | | [...] (L) | 23 - 27 mEq/L | [facility] | + + + + + | POC BASE DEFICIT | 8 (H) | 0.0 - 2.0 mmol/L | [facility] | + + + + + | POC S02 | 99 (H) | 95 - 98 % | [facility] | + + + + + | POC COMMENTS | Griffin Test not | | [facility] | | | indicatedComment: Site = | | | | | right radialTesting | | | | | performed at [facility];[address] | | | | | [address];[place] | | | | | [address] | | | + + + + + + + + + + | Performing | Address | City/State/Zipcode | Phone Number | | Organization | | | | + + + + + | [facility] | [address] | [place] [address] | | + + + + + [...] + + + | [facility] | [address] | [place] [address] | [phone] | | LABORATORY | Blvd. | | | + + + + + MRSA by PCR (04/09/2018 5:40 AM) + + + + + | Component | Value | Ref Range | Performed At | + + + + + | SOURCE | NARES(NOSE) | | [facility] | + + + + + | MRSA PCR | NEGATIVEComment: Testing | NEGATIVE | [facility] | | | performed at [facility];[address] | | | | | [address];[place] | | | | | [address] | | | + + + + + + + | Specimen | + + | Nasopharyngeal - | | Nasopharyngeal | | Culture | + + + + + + + | Performing | Address | City/State/Zipcode | Phone Number | | Organization | | | | + + + + + | [facility] | [address] | [place] [address] | | + + + + + [...] + + + | [facility] | [address] | [place] [address] | [phone] | | LABORATORY | Blvd. | | | + + + + + | [facility] | [address] | [place] [address] | | + + + + + Lactic acid (04/09/2018 5:18 AM) + + + + + | Component | Value | Ref Range | Performed At | + + + + + | LACTIC ACID | 1.3Comment: Testing | 0.4 - 2.0 mmol/L | [facility] | | | performed at [facility];[address] | | | | | [address];[place] | | | | | [address] | | | + + + + + + + | Specimen | + + | Blood | + + + + + + + | Performing | Address | City/State/Zipcode | Phone Number | | Organization | | | | + + + + + | [facility] | [address] | [place] [address] | | + + + + + PROCALCITONIN (04/09/2018 5:17 AM) + + + + + | Component | Value | Ref Range | Performed At | + + + + + | PROCALCITONIN | <0.05Comment: | <0.5 ng/mL | [facility] | | | INTERPRETIVE | | [...] performed | | | | | at [facility];[address] | | | | | [facility];[place] [address] | | | + + + + + + + + + + | Performing | Address | City/State/Zipcode | Phone Number | | Organization | | | | + + + + + | [facility] | [address] | [facility] [address] | | + + + + + [...] >60Comment: GFR <60: | >60 mL/min/1.73m2 | [facility] | | | CHRONIC KIDNEY DISEASE, [...] the | | | | | MDRD [facility] traceable | | | | | equation.Testing | | | | | performed at [facility] | | | | | [facility];[place], [place] | | | | | [address] | | | + + + + + + + | Specimen | + + | Blood | + + + + + + + | Performing | Address | City/State/Zipcode | Phone Number | | Organization | | | | + + + + + | [facility] | [address] | [place] [address] | | + + + + + CBC W/Auto Diff (Reflex to Manual) (04/09/2018 5:17 AM) + + + + + | Component | Value | Ref Range | Performed At | + + + + + | WBC | 12.29 (H) | 3.80 - 11.00 K/uL | [facility] | + + + + + | RBC | 4.93 | 4.20 - 5.70 M/uL | [facility] | + + + + + [...] 41.6 | 37 - 53 fl | [facility] | + + + + + | PLT | 261 | 150 - 400 K/uL | [facility] | + + + + + | MPV | 7.0 | fl | [facility] | + + + + + | DIFF TYPE | AUTOMATED | | [facility] | + + + + + | NEUTROPHILS | 52.72 | % | [facility] | + + + + + [...] (H) | 1.00 - 3.90 K/uL | [facility] | + + + + + | MONOCYTES ABS | 1.11 (H) | 0.00 - 0.80 K/uL | [facility] | + + + + + | EOSINOPHILS ABS | 0.29 | 0.00 - 0.50 K/uL | [facility] | + + + + + | BASOPHILS ABS | 0.07Comment: Testing | 0.00 - 0.10 K/uL | [facility] | | | performed at [facility];[address] | | | | | [address];[place] | | | | | [address] | | | + + + + + + + | Specimen | + + | Blood | + + + + + + + | Performing | Address | City/State/Zipcode | Phone Number | | Organization | | | | + + + + + | [facility] | [address] | [facility] [address] | | + + + + + POCT glucose (04/09/2018 4:30 AM) + + + + + | Component | Value | Ref Range | Performed At | + + + + + | GLUCOSE,POC SCREEN | 96Comment: Testing | 65 - 99 mg/dL | [facility] | | | performed at [facility];[address] | | | | | [address];[place] | | | | | [address] | | | + + + + + + + + + + | Performing | Address | City/State/Zipcode | Phone Number | | Organization | | | | + + + + + | [facility] | [address] | [place] [address] | | + + + + + [...] | | + +---+ | nystatin (MYCOSTATIN) [id number] | | | units/mL suspension 500,000 Units [...]
--- OUTSIDE RECORDS SUMMARY | 2018-04-22 20:32 | XMS | Encounter Summary ---
Demographics + + + | Address | [address] | | | [place] [address] | + + + | Home Phone | | + + + | Preferred Language | Unknown | + + + | Marital Status | Single | + + + | Uatsdin Affiliation | Unknown | + + + | Race | Unknown | + + + | Ethnic Group | Unknown | + + + Author + + + | Author | [facility] | | | and [place] | + + + | Organization | [facility] | | | and [place] | + + + | Address | Unknown | + + + | Phone | Unavailable | + + + Support + + +---------+ + | Name | Relationship | Address | Phone | + + +---------+ + | Mary Tran ECON | Unknown | | + + +---------+ + Care Team Providers + +------+ + | Care Analytical Engineer Name | Role | Phone | + +------+ + | Isaiah Marino MD | PCP | | + +------+ + Reason for Visit + + + | Reason | Comments | + + + | Difficulty Breathing | | + + + | Cough | | + + + | Fever (9 Weeks To 74 | | | Years) | | + + + Encounter Details +--------+ + + + + | Date | Type | Department | Care Team | Description | +--------+ + + + + | 04/08/ | Emergency | [facility] | Abel Du, | Acute on chronic | | 2018 - | | [facility] | MD Boyer W [place] | respiratory failure, | | | | CENTER [address] | [facility] [place] | unspecified whether | | 04/09/ | | [place], [place] | [place] [address] | with hypoxia or | | 2017 | | [address] | [phone] | hypercapnia (HCC) | | | | [phone] | | (Primary Dx); Mucus | | | | | Jimbo Mendoza | plugging of bronchi; | | | | | MD Rosalind Lockwood W | Shortness of | | | | | [address] [place] | breath; Wheezing; | | | | | [place] [address] | Difficulty breathing | | | | | [phone] | | | | | | | [...] | | | + +---+---+---+ + + +---------+ + | Alcohol Use [...] + + | Pulse | 99 | 04/09/2018 0130 PDT | + + + + | Temperature | 37.6 C (99.7 F) | 04/08/2018 1730 PDT | + + + + | Respiratory Rate | 16 | 04/09/2018129 PDT | + + + + | Oxygen Saturation | 98% | 04/09/2018129 PDT | + + + + | Inhaled Oxygen | - | - | | Concentration | | | + + + + | Weight | 86.6 kg (191 lb) | 04/08/20181729 PDT | + + + + | Height | - | - | + + + + | Body Mass Index | 26.64 | 04/08/20181729 PDT | + + + + in this encounter Medications at Time of Discharge + + +-------+---------+ + + | Medication | Sig. | Disp. | Refills | Start | End Date | | | | | | Date | | + + +-------+---------+ + + | albuterol 2.5 mg/3 | Take 2.5 mg by | | | | | | mL nebulizer | nebulization every 4 | | | | | | solution | hours as needed for | | | | | | | Shortness of | | | | | | | Breath. | | | | | + + +-------+---------+ + + | budesonide | Take 0.5 mg by | | | | | | (PULMICORT) 0.5 mg/2 | nebulization Daily. | | | | | | mL nebulizer | | | | | | | solution | | | | | | + + +-------+---------+ + + | DULoxetine | Take 30 mg by mouth | | | | | | (CYMBALTA) [address] | Daily. | | | | | | capsule | | | | | | + + +-------+---------+ + + | DULoxetine | Take 60 mg by mouth | | | | | | (CYMBALTA) [address] | Daily. | | | | | | capsule | | | | | | + + +-------+---------+ + + | EPINEPHrine | Inject 0.3 mg into | | | | | | auto-injector | the muscle as needed | | | | | | (EPIPEN 2-LOLY) 0.3 | for Anaphylaxis. | | | | | | mg/0.3 mL injection | | | | | | + + +-------+---------+ + + | | Take 1 tablet by | | 0 | 05/07/20 | | | lisinopril-hydrochlo | mouth Daily. | | | 17 | | | rothiazide | | | | | | | (PRINZIDE,ZESTORETIC | | | | | | | ) 20-12.5 MG per | | | | | | | tablet | | | | | | + + +-------+---------+ + + | loratadine | Take 10 mg by mouth | | | | | | (CLARITIN) 10 mg | Daily. | | | | | | tablet | | | | | | + + +-------+---------+ + + | raNITIdine | Take 300 mg by mouth | | | | | | (ZANTAC) 300 MG | nightly. | | | | | | tablet | | | | | | + + +-------+---------+ + + | Sodium Chloride | Inhale 4 mLs into | | | | | | (HYPERSAL) 3.5 % | the lungs Twice | | | | | | NEBU | daily as needed. | | | | | + + +-------+---------+ + + as of this encounter Progress Notes Fabián Valencia MD - 04/12/2018 1323 PDTThis patient was transferred. Please call t he receiving facility and let them know the resultsin this encounter Plan of Treatment +--------+ + + + + | Date | Type | Specialty | Care Team | Description | +--------+ + + + + | 04/27/ | Appointment | Pulmonology | Jose Barney, | | | 2017 | | | MD Rosalind Pugh | | | | | | [address] | | | | | | [place] | | | | | | [id number] | | | | | | | | +--------+ + + + + | 04/27/ | Office | Pulmonology | Jose Barney, | | | 2017 | Visit | | MD Rosalind Pugh | | | | | | [place] [address] | | | | | | [place] | | | | | | [address] | | | | | | | | +--------+ + + + + as of this encounter Procedures + +--------+ + [...] Results for this | | | | 1946 PDT | | procedure are in the | | | | | | results section. | + +--------+ + + + | LACTIC ACID | STAT | 04/08/2018 | | Results for this | | | | 1946 PDT | | procedure are in the | | | | | | results section. | + +--------+ + + + | CULTURE, BLOOD | STAT | 04/08/2018 | | Results for this | | | | 4 PDT | | procedure are in the [...] + + + in this encounter Results Urinalysis with Microscopic with Culture if Indicated (04/09/2018 0113) + + + + + | Component | Value | Ref Range | Performed At | + + + + + | COLOR | Yellow | Light Yellow, | [facility] | | | | Yellow, Straw [...] + + + + + | Specific [place] | 1.026 | 1.001 - 1.030 | [...] COMMENT | Urine Culture Not | | [facility] | | | Indicated | | [facility] | | | [...] + | [facility] | [address] | [place] | [phone] | | [facility] | | [address] | | | - LABORATORY | | | | + + + + + | [facility] | [address] | [place] | | | [facility] | | [address] | | | - LABORATORY | | | | + + + + + ECG 12 lead (04/08/20182303) + + + + + | Component | Value | Ref Range | Performed At | + + + + + | VENTRICULAR RATE EKG | 85 | BPM | [facility] | + + + + + | ATRIAL RATE | 85 | BPM | [facility] | + + + [...] SALEH, | | | | | [place] ([id number]) on | | | | | 04/09/2018 [...] | + +---------+ + + Culture, Blood (04/08/20181946) + + + + + | Component | Value | Ref Range | Performed At | + + + + + | Culture | No growth after 5 days | | [facility] | | | incubation. | | [facility] | | | [...] + | [facility] | [address] | [place], [place] | [phone] | | [facility] | | [address] | | | - LABORATORY | | | | + + + + + | [facility] | [address] | [place] | | | [facility] | | [address] | | | - LABORATORY | | | | + + + + + Lactic Acid (04/08/20181946) + +-------+ + + | Component | Value | Ref Range | Performed At | + +-------+ + + | LACTATE | 1.2 | 0.5 - 2.2 mmol/L | [facility] | | | | | [facility] | | | | | CENTER - | | | | | LABORATORY | + +-------+ + + + + | Specimen | + + | Blood | + + + + + + + | Performing | Address | City/State/Zipcode | Phone Number | | Organization | | | | + + + + + | [facility] | [address] | [place], [place] | [phone] | | [facility] | | [address] | | | - LABORATORY | | | | + + + + + | [facility] | [address] | [place], [place] | | | [facility] | | [address] | | | - LABORATORY | | | | + + + + + Culture, Blood (04/08/20181943) + + + + + | Component | Value | Ref Range | Performed At | + + + + + | Culture | No growth after 5 days | | [facility] | | | incubation. | | [facility] | | | | | [place] - | | | | | LABORATORY | + + + + + + + | Specimen | + + | Blood | + + + + + + + | Performing | Address | City/State/Zipcode | Phone Number | | Organization | | | | + + + + + | [facility] | [address] | [place] | [phone] | | [facility] | | [address] | | | - LABORATORY | | | | + + + + + | [facility] | [address] | [place] | | | [facility] | | [address] | | | - LABORATORY | | | | + + + + + Culture, Respiratory, Lower, Smear (04/08/20181819) + + + + + | Component | Value | Ref Range | Performed At | + + + + + | Culture | 2+ Serratia | | [facility] | | | marcescensComment: | | [facility] | | | Consider combination | | CENTER - | | | therapy for serious | | LABORATORY | | | infections. | | | + + + + + | Culture | 2+ Pseudomonas | | [facility] | | | aeruginosaComment: | | [facility] | | | Consider therapy with | [...] [facility] | | | | | [facility] | | | | | CENTER - | | | | | LABORATORY | + + + + + | Gram Stain Result | 2+ Epithelial cells | | [facility] | | | | | [facility] | | | | | CENTER - | | | | | LABORATORY | + + + + + | Gram Stain Result | 1+ Gram negative rods | | [facility] | | | | | [facility] + | [facility] | [address] | [place] | [phone] | | [facility] | | [address] | | | - LABORATORY | | | | + + + + + | [facility] | [address] | [place] | | | [facility] | | [address] | | | - LABORATORY | | | | + + + + + ECG 12 lead (04/08/20181810) + + + + + | Component | Value | Ref Range | Performed At | + + + + + | VENTRICULAR RATE EKG | 75 | BPM | [facility] | + + + + + | ATRIAL RATE | 75 | BPM | [facility] | + + + + + | P-R INTERVAL | 134 | ms | [facility] | + + + + + | QRS DURATION | 96 | ms | [facility] | + + + + + | Q-T INTERVAL | 378 | ms | [facility] | + + + + + | Q-T INTERVAL | 422 | ms | [facility] | | (CORRECTED) | | | | + + + + + | P WAVE AXIS | 53 | degrees | [facility] | + + + + + | QRS AXIS | 18 | degrees | [facility] | + + + + + | T AXIS | 30 | degrees | [facility] | + + + + + | INTERPRETATION TEXT | Normal sinus | | [facility] | | | rhythmMinimal voltage | | | | | criteria for LVH, may be | | | | | normal | | | | | variantNonspecific T | | | | | wave abnormalityNo | | | | | previous ECGs | | | | | availableConfirmed by | | | | | [place] BURNETT MD ([id number]) | | | | | on 04/09/2018 8:05:25 AM | | | + + + + + + + + | Narrative | Performed At | + + + | | | + + + + +---------+ + + | Performing | Address | City/State/Zipcode | Phone Number | | Organization | | | | + +---------+ + + | [facility] | | | | + +---------+ + + XR Chest AP Portable (04/08/2018 [...] +---------+ + + POC Blood Gases (04/08/2018 175) + + + + + | Component [...] + | [facility] | [address] | [place] | [phone] | | [facility] | | [address] | | | - LABORATORY | | | | + + + + + | [facility] | [address] | [place] | | | [facility] | | [address] | | | - LABORATORY | | | | + + + + + Extra Blue Top Tube (04/08/20181743) + +-------+ + + | Component | Value | Ref Range | Performed At | + +-------+ + + | Extra Blue Top Tube | Done | | [facility] | | | | | [facility] | | | | | CENTER - | | | | | LABORATORY | + +-------+ + + + + | Specimen | + + | Blood | + + + + + + + | Performing | Address | City/State/Zipcode | Phone Number | | Organization | | | | + + + + + | [facility] | [address] | [place] | [phone] | | [facility] | | [address] | | | - LABORATORY | | | | + + + + + | [facility] | [address] | [place] | | | [facility] | | [address] | | | - LABORATORY | | | | + + + + + Extra Gold Top Tube (04/08/2018 426) + +-------+ + + | Component | Value | Ref Range | Performed At | + +-------+ + + | EGDT | Done | | [facility] | | | | | [facility] | | | | | CENTER - | | | | | LABORATORY | + +-------+ + + + + | Specimen | + + | Blood | + + + + + + + | Performing | Address | City/State/Zipcode | Phone Number | | Organization | | | | + + + + + | [facility] | [address] | [place] | [phone] | | [facility] | | [address] | | | - LABORATORY | | | | + + + + + | [facility] | [address] | [place] | | | [facility] | | [address] | | | - LABORATORY | | | | + + + + + B Type Natriuretic Peptide (04/08/20181741) + +-------+ + + | Component | Value | Ref Range | Performed At | + +-------+ + + | BNP | 33 | <100 pg/mL | [facility] | | | | | [facility] | | | | | CENTER - | | | | | LABORATORY | + +-------+ + + + + | Specimen | + + | Blood | + + + + + + + | Performing | Address | City/State/Zipcode | Phone Number | | Organization | | | | + + + + + | [facility] | [address] | [place], [place] | [phone] | | [facility] | | [address] | | | - LABORATORY | | | | + + + + + | [facility] | [address] | [place], [place] | | | [facility] | | [address] | | | - LABORATORY | | | | + + + + + Troponin I (04/08/20181741) + + + + + | Component | Value | Ref Range | Performed At | + + + + + | Troponin I | <0.01Comment: Reference | <0.06 ng/mL | [facility] | | | Ranges:0.00-0.06 = | | [facility] | | | NORMAL>0.06 = | | [...] infarction. | | | | | [employer] | | | | | [...] + | [facility] | [address] | [place] | [phone] | | [facility] | | [address] | | | - LABORATORY | | | | + + + + + | [facility] | [address] | [place] | | | [facility] | | [address] | | | - LABORATORY | | [...] 11 | 7 - 18 mg/dL | [facility] | | | | | [facility] | | | | | CENTER - | | | | | LABORATORY | + + + + + | Creatinine, | 0.58 (L) | 0.60 - 1.30 mg/dL | [facility] | | Serum/Plasma | | | [facility] | | | | | CENTER - | | | | | LABORATORY | + + + + + | eGFR if not | >60Comment: GLOMERULAR | >=60 mL/min/1.73m2 | [facility] | | [place] | FILTRATION | | [facility] | | | RATE,ESTIMATED mL/min | | CENTER - | | | /1.22v7Ejur than 60 | | LABORATORY | | [...] | | an appended report. | | [facility] | | | These results have [...] + | [facility] | [address] | [place] | [phone] | | [facility] | | [address] | | | - LABORATORY | | | | + + + + + | [facility] | [address] | [place] | | | [facility] | | [address] | | | - LABORATORY | | [...] 0.70 | 0.00 - 1.00 K/uL | [facility] | | | | | [facility] | | | | | CENTER - | | | | | LABORATORY | + + + + + | Absolute Eosinophils | 0.00 | 0.00 - 0.40 K/uL | [facility] | | | | | [facility] [...] + | [facility] | [address] | [place], [place] | [phone] | | [facility] | | [address] | | | - LABORATORY | | | | + + + + + | [facility] | [address] | [place], [place] | | | [facility] | | [address] | | | - LABORATORY | | | | + + + + + POC Blood Gases (04/08/20181740) + + + + + | Component | Value | Ref Range | Performed At | + + + + + | Specimen Source | Vein | | [facility] | | | | | [facility] | | | | | CENTER - | | | | | LABORATORY | + + + + + | pH, POC | 7.441 | 7.3 - 7.45 | [facility] | | | | | [facility] | | | | | CENTER - | | | | | LABORATORY | + + + + + | HCO3, POC | 16.3 (L) | 21.0 - 28.0 mmol/L | [facility] | | | | | [facility] | | | | | CENTER - | | | | | LABORATORY | + + + + + | TCO2, POC | 17.0 (L) | 22.0 - 29.0 mmol/L | [facility] | | | | | [facility] | | | | | CENTER - | | | | | LABORATORY | + + + + + | Base Excess, POC | -5.6 (L) | -2.0 - 3.0 mmol/L | [facility] | | | | | [facility] | | | | | CENTER - | | | | | LABORATORY | + + + + + | Base Excess, | -7.9 (L) | -2.0 - 3.0 mmol/L | [facility] | | Extracellular fluid, | | | [facility] | | POC | | | CENTER - | | | | | LABORATORY | + + + + + | O2 Sat, POC | 77 (L) | 90 - 100 % | [facility] | | | | | [facility] | | | | | CENTER - | | | | | LABORATORY | + + + + + | PCO2, POC | 23.9 (L) | 35 - 45 mmHg | [facility] | | | | | [facility] | | | | | CENTER - | | | | | LABORATORY | + + + + + | PO2, POC | 38.5 (L) | 60 - 750.0 mmHg | [facility] | | | | | [facility] | | | | | CENTER - [...] | [address] | [place] | [phone] | | [facility] | | [address] | | | - LABORATORY | | | | + + + + + | [facility] | [address] | [place] | | | [facility] | | [address] | | | - LABORATORY | | | | + + + + + in this encounter Visit Diagnoses + + | Diagnosis | + + | Acute on chronic respiratory failure, unspecified whether with hypoxia or hypercapnia | | (HCC) - Primary | + + | Mucus plugging of bronchi | + + | Shortness of breath | + + | Wheezing | + + | Difficulty breathing | + + | Other dyspnea and respiratory abnormality | + + Administered Medications + +--------+ +--------+------+------+ | Medication Order | MAR | Action | Dose | Rate | Site | | | Action | Date | | | | + +--------+ +--------+------+------+ | albuterol 2.5 mg/3 mL nebulizer | Given | 04/08/2018 | 2.5 mg | | | | solution 2.5 mg 2.5 mg, | | 23:42 | | | | | Nebulization, RT Once, 04/08/18 | | PDT | | | | | at 2335, For 1 dose, RT will | | | | | | | administer. | | | | | | + +--------+ +--------+------+------+ +---+---+ | | | +---+---+ + +-------+ +------+---+---+ | albuterol 2.5 mg/3 mL nebulizer | Given | 04/08/2018 | 5 mg | | | | solution 5 mg 5 mg, | | 18:15 | | | | | Nebulization, RT Once, 04/08/18 | | PDT | | | | | at 1815, For 1 dose, RT will | | | | | | | administer. | | | | | | + +-------+ +------+---+---+ +---+---+ | | | +---+---+ + +-------+ +-------+---+---+ | albuterol-ipratropium 2.5-0.5 | Given | 04/08/2018 | 3 mLs | | | | mg/3 mL nebulizer solution 3 mL | | 18:15 | | | | | 3 mL, Nebulization, RT Once, Sun | | PDT | | | | | 04/08/18 at 1815, For 1 dose | | | | | | + +-------+ +-------+---+---+ +---+---+ | | | +---+---+ + +---------+ +--------+-------+---+ | azithromycin (ZITHROMAX) 500 mg | New Bag | 04/08/2018 | 500 mg | 255 | | | in sodium chloride 0.9% 250 mL | | 20:35 | | mL/hr | | | IVPB 500 mg, Intravenous, | | PDT | | | | | Administer over 1 Hours, ONCE, | | | | | | | 04/08/18 at 1930, For 1 dose, | | | | | | | Keep in refrigerator. | | | | | | + +---------+ +--------+-------+---+ +---+---+ | | | +---+---+ + +---------+ +-----+-------+---+ | cefTRIAXone (ROCEPHIN) 1 g in | New Bag | 04/08/2018 | 1 g | 100 | | | sodium chloride 0.9% 50 mL IVPB | | 20:04 | | mL/hr | | | 1 g, Intravenous, Administer over | | PDT | | | | | 30 Minutes, ONCE, 04/08/18 at | | | | | | | 1930, For 1 dose, Activate system | | | | | | | and mix before use. | | | | | | + +---------+ +-----+-------+---+ +---+---+ | | | +---+---+ + +-------+ +--------+---+---+ | fentaNYL (PF) injection 25 mcg | Given | 04/08/2018 | 25 mcg | | | | 25 mcg, Intravenous, ONCE, Sun | | 19:34 | | | | | 04/08/18 at 1920, For 1 dose | | PDT | | | | + +-------+ +--------+---+---+ +---+---+ | | | +---+---+ + +-------+ +--------+---+---+ | fentaNYL (PF) injection 25 mcg | Given | | 25 mcg | | | | 25 mcg, Intravenous, ONCE, Mon | | 8 1:58 | | | | | 04/09/18 at 0200, For 1 dose | | PDT | | | | + +-------+ +--------+---+---+ +---+---+ | | | +---+---+ + +-------+ +-------+---+---+ | ketorolac (TORADOL) injection | Given | 04/08/2018 | 30 mg | | | | 30 mg 30 mg, Intravenous, ONCE, | | 19:35 | | | | | 04/08/18 at 1920, For 1 dose | | PDT | | | | + +-------+ +-------+---+---+ +---+---+ | | | +---+---+ + +-------+ +------+---+---+ | LORazepam (ATIVAN) injection 1 | Given | 04/08/2018 | 1 mg | | | | mg 1 mg, Intravenous, ONCE, Sun | | 23:53 | | | | | 04/08/18 at 2335, For 1 dose | | PDT | | | | + +-------+ +------+---+---+ +---+---+ | | | +---+---+ + +-------+ +------+---+---+ | ondansetron (ZOFRAN) injection | Given | 04/08/2018 | 4 mg | | | | 4 mg 4 mg, Intravenous, ONCE, | | 19:35 | | | | | 04/08/18 at 1920, For 1 dose | | PDT | | | | + +-------+ +------+---+---+ +---+---+ | | | +---+---+ + +-------+ +------+---+---+ | ondansetron (ZOFRAN) injection | Given | | 4 mg | | | | 4 mg 4 mg, Intravenous, ONCE, | | 8 2:08 | | | | | 04/09/18 at 0205, For 1 dose | | PDT | | | | + +-------+ +------+---+---+ +---+---+ | | | +---+---+ + +---------+ +---+-------+---+ | sodium chloride 0.9% (NS) | New Bag | 04/08/2018 | | 100 | | | infusion at 100 mL/hr, | | 19:35 | | mL/hr | | | Intravenous, CONTINUOUS, Starting | | PDT | | | | | 04/08/18 at 1920 | | | | | | + +---------+ +---+-------+---+ + + +---+-------+---+ | Rate/Dose Verify | 04/09/ | | 100 | | | | 8 1:02 | | mL/hr | | | | PDT | | | | + + +---+-------+---+ +---+---+ | | | +---+---+ in this encounter"
--- OUTSIDE RECORDS SUMMARY | 2018-04-22 20:32 | XMS | Encounter Summary ---
Demographics + + + | Address | [address] | | | [place] [address] | + + + | Home Phone | | + + + | Preferred Language | Unknown | + + + | Marital Status | Single | + + + | Druze Affiliation | Unknown | + + + | Race | Unknown | + + + | Ethnic Group | Unknown | + + + Author + + + | Author | [email or web address] | + + + | Organization | [facility] [employer] [facility] | + + + | Address | Unknown | + + + | Phone | Unavailable | + + + Support + + +---------+ + | Name | Relationship | Address | Phone | + + +---------+ + | Mary Tran | ECON | Unknown | | + + +---------+ + Care Team Providers + +------+ + | Care Computer Hardware Developer Name | Role | Phone | + +------+ + | Isaiah Marino MD | PCP | | + +------+ + Encounter Details +--------+ + + + + | Date | Type | Department | Care Team | Description | +--------+ + + + + | 04/08/ | Hospital | [facility] | See, Medical | Pain | | 2018 | Encounter | [facility] | Record | | | | | RADIOLOGY [address] | | | | | | [address] | | | | | | [place] [address] | | | | | | [phone] | | | +--------+ + + + [...] [facility] | [address] | [place] [address] | | + + + + + in this encounter Visit Diagnoses + + | Diagnosis | + + | Pain | + + | Generalized pain | + +"
--- OUTSIDE RECORDS SUMMARY | 2018-04-22 20:32 | XMS | Encounter Summary ---
Demographics + + + | Address | [address] | | | [place] [address] | + + + | Home Phone | | + + + | Preferred Language | Unknown | + + + | Marital Status | Single | + + + | Baptist Affiliation | Unknown | + + + | Race | Unknown | + + + | Ethnic Group | Unknown | + + + Author + + + | Author | [facility] | + + + | Organization | [facility] | + + + | Address | Unknown | + + + | Phone | Unavailable | + + + Support + + +---------+ + | Name | Relationship | Address | Phone | + + +---------+ + | Mary Tran | ECON | Unknown | | + + +---------+ + Care Team Providers + +------+ + | Care Software Test Manager Name | Role | Phone | + +------+ + | Isaiah Marino MD | PCP | | + +------+ + Encounter Details +--------+ + + + + | Date | Type | Department | Care Team | Description | +--------+ + + + + | 04/08/ | Ancillary | [facility] | See, Medical | Pain | | 2018 | Orders | [facility] | Record | | | | | [address] | | | | | | [place] [address] | | | | | | [phone] | | | +--------+ + + + [...] + + + as of this encounter Plan of Treatment Not on fileas of this encounter Results X-ray chest 1 view (04/08/2018 9:42 PM) + + + | Narrative | Performed At | + + + | This is a non-reportable procedure without a radiologist report and | [facility] | | is used for image storage only | [facility] | + + + + + + + + | Performing | Address | City/State/Zipcode | Phone Number | | Organization | | | | + + + + + | [facility] | [address] | [place] [address] | | + + + + + in this encounter Visit Diagnoses + + | Diagnosis | + + | Pain | + + | Generalized pain | + +"
--- OUTSIDE RECORDS SUMMARY | 2018-04-22 20:32 | XMS | Encounter Summary ---
Demographics + + + | Address | [address] | | | [place] [address] | + + + | Home Phone | | + + + | Preferred Language | Unknown | + + + | Marital Status | Single | + + + | Sabianism Affiliation | Unknown | + + + | Race | Unknown | + + + | Ethnic Group | Unknown | + + + Author + + + | Author | [facility] | + + + | Organization | [facility] | + + + | Address | Unknown | + + + | Phone | Unavailable | + + + Support + + +---------+ + | Name | Relationship | Address | Phone | + + +---------+ + | Mary Tran | ECON | Unknown | | + + +---------+ + Care Team Providers + +------+ + | Care Deputy Director Of Public Works Name | Role | Phone | + +------+ + | Isaiah Marino MD | PCP | | + +------+ + Encounter Details +--------+ + + + + | Date | Type | Department | Care Team | Description | +--------+ + + + + | 04/08/ | Ancillary | [facility] | See, Medical | Pain | | 2018 | Orders | [facility] | Record | | | | | [address] | | | | | | [place] [address] | | | | | | [phone] | | | +--------+ + + + [...] [facility] | [address] | [place] [address] | | + + + + + in this encounter Visit Diagnoses + + | Diagnosis | + + | Pain | + + | Generalized pain | + +"
--- OUTSIDE RECORDS SUMMARY | 2018-04-22 20:32 | XMS | Clinical Summary ---
Demographics + + + | Address | [address] | | | [place] [address] | + + + | Home Phone | | + + + | Preferred Language | Unknown | + + + | Marital Status | Single | + + + | Jain Affiliation | Unknown | + + + | Race | Unknown | + + + | Ethnic Group | Unknown | + + + Author + + + | Author | [facility] | | | and [place] | + + + | Organization | [facility] | | | and [...] Team Providers + +------+ + | Care Director Medical Name | Role | Phone | + [...] [place] | | | | | | [address] | | | | | | | | +--------+ + + + + | 04/27/ | Office | | Jose Barney, | | | 2017 | Visit | | MD Rosalind Pugh | | | | | | Raquel, Level II | | | | | | [place] | | | | | | [address] | | | | | | | [...] + + + + + | Specific [place] | 1.026 | 1.001 - 1.030 | [...] ST. | | | Indicated | | [facility] | | | | [...] [address] | [place] | [phone] | | [facility] | | [address] | | | - LABORATORY | | | | + + + + + | [facility] | [address] | [place] | | | [facility] | | [address] | | | - LABORATORY | | [...] [place], | | | | | [place] ([id number]) on | | | | | 04/09/2018 [...] ST. | | | incubation. | | [facility] | | | | [...] [address] | [place] | [phone] | | [facility] | | [address] | | | - LABORATORY | | | | + + + + + | [facility] | [address] | [place] | | | [facility] | | [address] | | | - LABORATORY | | | | + + + + + Lactic Acid (04/08/20181946) + +-------+ + + | Component | Value | Ref Range | Performed At | + +-------+ + + | LACTATE | 1.2 | 0.5 - 2.2 mmol/L | [facility] | | | | | [facility] | | | | [...] + | [facility] | [address] | [place] | [phone] | | [facility] | | [address] | | | - LABORATORY | | | | + + + + + | [facility] | [address] | [place], [place] | | | [facility] | | [address] | | | - LABORATORY | | | | + + + + + Culture, Respiratory, Lower, Smear (04/08/2018 1820) + + + + + | Component | Value | Ref Range | Performed At | + + + + + | Culture | 2+ Serratia | | [facility] | | | marcescensComment: | | [facility] | | | Consider combination | | CENTER - | | | therapy for serious | | LABORATORY | | | infections. | | | + + + + + | Culture | 2+ Pseudomonas | | [facility] | | | aeruginosaComment: | | [facility] | | | Consider [...] [facility] | | | | | [facility] | | | | | CENTER - | | | | | LABORATORY | + + + + + | Gram Stain Result | 2+ Epithelial cells | | [facility] | | | | | [facility] | | | | | CENTER - | | | | | LABORATORY | + + + + + | Gram Stain Result | 1+ Gram negative rods | | [facility] | | | | | [facility] | | | | | CENTER [...] + | [facility] | [address] | [place], [place] | [phone] | | [facility] | | [address] | | | - LABORATORY | | | | + + + + + | [facility] | [address] | [place], [place] | | | [facility] | | [address] | | | - LABORATORY | | [...] +---------+ + + POC Blood Gases (04/08/2018 147)Only the most recent of 2 results within [...] + | [facility] | [address] | [place] | [phone] | | [facility] | | [address] | | | - LABORATORY | | | | + + + + + | [facility] | [address] | [place], [place] | | | [facility] | | [address] | | | - LABORATORY | | | | + + + + + Extra Gold Top Tube (04/08/2018 174) + +-------+ + + | Component | Value | Ref Range | Performed At | + +-------+ + + | EGDT | Done | | [facility] | | | | | [facility] | | | | [...] + | [facility] | [address] | [place] | [phone] | | [facility] | | [address] | | | - LABORATORY | | | | + + + + + | [facility] | [address] | [place] | | | [facility] | | [address] | | | - LABORATORY | | [...] + | [facility] | [address] | [place] | [phone] | | [facility] | | [address] | | | - LABORATORY | | | | + + + + + | [facility] | [address] | [place] | | | [facility] | | [address] | | | - LABORATORY | | | | + + + + + Troponin I (04/08/2018 174) + + + + + | Component | Value | Ref Range | Performed At | + + + + + | Troponin I | <0.01Comment: Reference | <0.06 ng/mL | [facility] | | | Ranges:0.00-0.06 = | | [facility] | | | NORMAL>0.06 [...] infarction. | | | | | [employer] | | | | | [...] + + | Performing | Address | City/State/[facility] | Phone Number | | Organization | | | | + + + + + | [facility] | [address] | [place], [place] | [phone] | | [facility] | | [address] | | | - LABORATORY | | | | + + + + + | [facility] | [address] | [place], [place] | | | [facility] | | [address] | | | - LABORATORY | | [...] + | [facility] | [address] | [place] | [phone] | | [facility] | | [address] | | | - LABORATORY | | | | + + + + + | [facility] | [address] | [place] | | | [facility] | | [address] | | | - LABORATORY | | | | + + + + + B Type Natriuretic Peptide (04/08/20181741) + +-------+ + + | Component | Value | Ref Range | Performed At | + +-------+ + + | BNP | 33 | <100 pg/mL | [facility] | | | | | [facility] | | | | [...] + | [facility] | [address] | [place], [place] | [phone] | | [facility] | | [address] | | | - LABORATORY | | | | + + + + + | [facility] | [address] | [place], [place] | | | [facility] | | [address] | | | - LABORATORY | | [...] [facility] | | | | | [facility] | | | | | CENTER - | | | | | LABORATORY | + + + + + | BUN | 11 | 7 - 18 mg/dL | [facility] | | | | | [facility] | | | | | CENTER - | | | | | LABORATORY | + + + + + | Creatinine, | 0.58 (L) | 0.60 - 1.30 mg/dL | [facility] | | Serum/Plasma | | | [facility] | | | | | CENTER - | | | | | LABORATORY | + + + + + | eGFR if not | >60Comment: GLOMERULAR | >=60 mL/min/1.73m2 | [facility] | | VINCENTIAN | FILTRATION | | [facility] | | | RATE,ESTIMATED mL/min | | CENTER - | | | /1.88w9Rfdq than 60 | | LABORATORY | | [...] + | [facility] | [address] | [place], [place] | [phone] | | [facility] | | [address] | | | - LABORATORY | | | | + + + + + | [facility] | [address] | [place], [place] | | | [facility] | | [address] | | | - LABORATORY | | [...] +--------+ +---------+ | MEDICARE | MEDICA | [id number] | Medica | +- | | | | RE | | re | [phone] | | | | PART A | | | | | | | AND B | | | | | + +--------+ +--------+ +---------+ | [employer] | MODA | [id number] | Medica | [id number] | | MEDICAID HMO | HEALTH [...] Self | [birth year] | Home: | [address] | | [place] | rehana/Jakob | | 1995 | [phone] | [address] [place], | | | [place] | | | [address] | [place] [address] | + +--------+ +--------+ + +
--- OUTSIDE RECORDS SUMMARY | 2018-04-22 20:32 | XMS | Clinical Summary ---
Demographics + + + | Address | [address] | | | [place] [address] | + + + | Home Phone | | + + + | Preferred Language | Unknown | + + + | Marital Status | Single | + + + | Presybeterian Affiliation | Unknown | + + + | Race | Unknown | + + + | Ethnic Group | Unknown | + + + Author + + + | Author | [facility] | + + + | Organization | [facility] | + + + | Address | Unknown | + + + | Phone | Unavailable | + + + Support + + +---------+ + | Name | Relationship | Address | Phone | + + +---------+ + | Mary Fitzgerald | ECON | Unknown | | + + +---------+ + Care Team Providers + +------+ + | Care Chief Of Staff Doctor Name | Role | Phone | + [...] | | | ce: | | | Sound Art Instructor | | | Discharge | | | [...] Bronchiecta | | | sis ([facility]) | | | Sleep apnea | | [...] Bronchiecta | | | sis ([facility]) | | | Sleep apnea | | [...] | | | Jacqueline, | | | [id number] | | | [address], [place] | | | [address] | | | n [place] | | | [phone] | | | [phone] | | | lm | | | Jacqueline, | | | [id number] | | | COURT, [place] | | | [address] | | | n [place] | | | [phone] | | [phone] | | | [...] | | | patient | | | hospice care transitions coordinator: | | | Please | | | [...] Testing | 65 - 99 mg/dL | [facility] | | | performed at [facility] | | | | | [address];[place], [place] | | | | | [address] | | | + + + + + + + + + + | Performing | Address | City/State/Zipcode | Phone Number | | Organization | | | | + + + + + | [facility] | [address] | [place] [address] | | + + + + + [...] | [facility] | | | performed at [facility], [address] | | LABORATORY | | | [address] [facility], | | | | | [place] [address] | | | + + + + + + + | Specimen | + + | Blood | + + + + + + + | Performing | Address | City/State/Zipcode | Phone Number | | Organization | | | | + + + + + | [facility] | [address] [place] [address] | [place] [address] | [phone] | | LABORATORY | [address]vd. | | [...] | [facility] | | | performed at [facility], [address] | | LABORATORY | | | [facility], | | | | | [place] [address] | | | + + + + + + + | Specimen | + + | Blood | + + + + + + + | Performing | Address | City/State/Zipcode | Phone Number | | Organization | | | | + + + + + | [facility] | [address] | [place] [address] | [phone] | | LABORATORY | Blvd. | | [...] | [facility] | | | performed at [facility], [address] | | LABORATORY | | | [facility], | | | | | [place] [address] | | | + + + + + + + | Specimen | + + | Blood | + + + + + + + | Performing | Address | City/State/Zipcode | Phone Number | | Organization | | | | + + + + + | [facility] | [address] | [place] [address] | [phone] | | LABORATORY | Blvd. | | [...] (H) | 65 - 99 mg/dL | [facility] | | | | | LABORATORY | [...] | | | | | performed at [facility], [address] | | | | | [facility], | | | | | [place] [address] | | | + + + + + + + | Specimen | + + | Blood | + + + + + + + | Performing | Address | City/State/Zipcode | Phone Number | | Organization | | | | + + + + + | [facility] | [address] | [place] [address] | [phone] | | LABORATORY | Blvd. | | [...] [facility] | [address] | [place] [address] | | + + + + + [...] SPECIMEN | 0.0 - 0.3 mg/dL | [facility] | | | SLIGHTLY HEMOLYZED | | [...] | | | | | performed at [facility], [address] | | | | | [address], | | | | | [place] [address] | | | + + + + + + + + + + | Performing | Address | City/State/Zipcode | Phone Number | | Organization | | | | + + + + + | [facility] | [address] | [place] [address] | [phone] | | LABORATORY | Blvd. | | [...] | + + + + + | [facility] | [address] | [place] [address] | [phone] | | LABORATORY | Blvd. | | | + + + + + Potassium (04/09/2018 5:09 PM) + + + + + | Component | Value | Ref Range | Performed At | + + + + + | POTASSIUM | 4.7Comment: Testing | 3.5 - 4.9 mmol/L | [facility] | | | performed at [facility] | | | | | [facility];[place] | | | | | [address] | | | + + + + + + + | Specimen | + + | Blood | + + + + + + + | Performing | Address | City/State/Zipcode | Phone Number | | Organization | | | | + + + + + | [facility] | [address] | [place] [address] | | + + + + + [...] INTERP | Testing performed by | | [facility] | | | Molecular | | LABORATORY | | | MethodologyComment: | | | | | Testing performed at | | | | | [facility], [address] | | | | | [place] | | | | | [address] | | | + + + + + + + | Specimen | + + | Nasal Swab | + + + + + + + | Performing | Address | City/State/Zipcode | Phone Number | | Organization | | | | + + + + + | [facility] | [address] | [place] [address] | [phone] | | LABORATORY | [address] | | | + + + + + POC Arterial Blood Gas (04/09/2018 7:20 AM) + + + + + | Component | Value | Ref Range | Performed At | + + + + + | POC FIO2 | 30 | % | [facility] | + + + + + | pH, Art | 7.385 | 7.350 - 7.450 | [facility] | + + + + + [...] COMMENTS | Griffin Test not | | [facility] | | | indicatedComment: Site = | | | | | right radialTesting | | | | | performed at [facility] | | | | | [address];[place] | | | | | [address] | | | + + + + + + + + + + | Performing | Address | City/State/Zipcode | Phone Number | | Organization | | | | + + + + + | [facility] | [address] | [place] [address] | | + + + + + [...] + + + + | [facility] | [address] [place] [address] | [place] [address] | [phone] | | LABORATORY | [address] | | | + + + + + MRSA by PCR (04/09/2018 5:40 AM) + + + + + | Component | Value | Ref Range | Performed At | + + + + + | SOURCE | NARES(NOSE) | | [facility] | + + + + + | MRSA PCR | NEGATIVEComment: Testing | NEGATIVE | [facility] | | | performed at [facility];[address] | | | | | [address];[place], [place] | | | | | [address] | | | + + + + + + + | Specimen | + + | Nasopharyngeal - | | Nasopharyngeal | | Culture | + + + + + + + | Performing | Address | City/State/Zipcode | Phone Number | | Organization | | | | + + + + + | [facility] | [address] | [place] [address] | | + + + + + [...] | + + + + + | [facility] | [address] | [place] [address] | [phone] | | LABORATORY | Blvd. | | | + + + + + | [facility] | [address] | [place] [address] | | + + + + + Lactic acid (04/09/2018 5:18 AM) + + + + + | Component | Value | Ref Range | Performed At | + + + + + | LACTIC ACID | 1.3Comment: Testing | 0.4 - 2.0 mmol/L | [facility] | | | performed at [facility];[address] | | | | | [address];[place] | | | | | [address] | | | + + + + + + + | Specimen | + + | Blood | + + + + + + + | Performing | Address | City/State/Zipcode | Phone Number | | Organization | | | | + + + + + | [facility] | [address] | [place] [address] | | + + + + + PROCALCITONIN (04/09/2018 5:17 AM) + + + + + | Component | Value | Ref Range | Performed At | + + + + + | PROCALCITONIN | <0.05Comment: | <0.5 ng/mL | [facility] | | | INTERPRETIVE | | [...] performed | | | | | at [facility] [facility] | | | | | [place] [address] | | | + + + + + + + + + + | Performing | Address | City/State/Zipcode | Phone Number | | Organization | | | | + + + + + | [facility] | [address] | [facility] [place] [address] | | + + + + + [...] +------+-------+ + | MEDICARE | MEDICA | [id number] | | | [address] | | | RE | | | | [place] [address] | | | IP-OP | | | | | + +--------+ +------+-------+ + | MEDICAID | [employer] | [id number] | | | [address] | | | N | | | | [place] | | | [place] | | | | [address] | | | HVAC JOURNEYMAN | | | | | + +--------+ [...] | [birth year] | Home: | [address] | | | al/Fam | | 1995 | [phone] | [address] [place], | | | [place] | | | [address] | [place] [address] | + +--------+ +--------+ + +
--- OUTSIDE RECORDS SUMMARY | 2018-04-22 20:33 | XMS | Encounter Summary ---
Demographics + + + | Address | [address] | | | [place] [address] | + + + | Home Phone | | + + + | Preferred Language | Unknown | + + + | Marital Status | Single | + + + | Advent Affiliation | Unknown | + + + | Race | Unknown | + + + | Ethnic Group | Unknown | + + + Author + + + | Author | [facility] | | | and [place] | + + + | Organization | [facility] | | | and [...] Team Providers + +------+ + | Care Camp Recreation Specialist Name | Role | Phone | + [...] + + | 04/08/ | Emergency | [facility] | Abel Du, | Acute on chronic | | 2018 - | | [facility] | MD Boyer W RAQUEL OCHOA | respiratory failure, | | | | CENTER [address] | [facility] [place] | unspecified whether | | 04/09/ | | [place], [place] | [place] [address] | with hypoxia or | | 2017 | | [address] | [phone] | hypercapnia (HCC) | | | | [phone] | | (Primary Dx); Mucus | | | | | Jimbo Mendoza | plugging of bronchi; | | | | | MD Rosalind Lockwood W | Shortness of | | | | | [address] [place] | breath; Wheezing; | | | | | [place] [address] | Difficulty breathing | | | | | [phone] | | | | | | | [...] [place] | | | | | | [address] | | | | | | | | +--------+ + + + + | 04/27/ | Office | Pulmonology | Jose Barney, | | | 2017 | Visit | | MD Rosalind Pugh | | | | | | Raquel Level II | | | | | | [place] | | | | | | [address] | | | | | | | [...] + + + + + | Specific [place] | 1.026 | 1.001 - 1.030 | [...] + | [facility] | [address] | [place] | [phone] | | [facility] | | [address] | | | - LABORATORY | | | | + + + + + | [facility] | [address] | [place] | | | [facility] | | [address] | | | - LABORATORY | | [...] SALEH, | | | | | [place] ([id number]) on | | | | | 04/09/2018 [...] + | [facility] | [address] | [place], [place] | [phone] | | [facility] | | [address] | | | - LABORATORY | | | | + + + + + | [facility] | [address] | [place] | | | [facility] | | [address] | | | - LABORATORY | | | | + + + + + Lactic Acid (04/08/20181946) + +-------+ + + | Component | Value | Ref Range | Performed At | + +-------+ + + | LACTATE | 1.2 | 0.5 - 2.2 mmol/L | [facility] | | | | | [facility] | | | | | CENTER - | | | | | LABORATORY | + +-------+ + + + + | Specimen | + + | Blood | + + + + + + + | Performing | Address | City/State/Zipcode | Phone Number | | Organization | | | | + + + + + | [facility] | [address] | [place], [place] | [phone] | | [facility] | | [address] | | | - LABORATORY | | | | + + + + + | [facility] | [address] | [place], [place] | | | [facility] | | [address] | | | - LABORATORY | | | | + + + + + Culture, Blood (04/08/20181943) + + + + + | Component | Value | Ref Range | Performed At | + + + + + | Culture | No growth after 5 days | | [facility] | | | incubation. | | [facility] | | | | | [place] - | | | | | LABORATORY | + + + + + + + | Specimen | + + | Blood | + + + + + + + | Performing | Address | City/State/Zipcode | Phone Number | | Organization | | | | + + + + + | [facility] | [address] | [place] | [phone] | | [facility] | | [address] | | | - LABORATORY | | | | + + + + + | [facility] | [address] | [place] | | | [facility] | | [address] | | | - LABORATORY | | | | + + + + + Culture, Respiratory, Lower, Smear (04/08/20181819) + + + + + | Component | Value | Ref Range | Performed At | + + + + + | Culture | 2+ Serratia | | [facility] | | | marcescensComment: | | [facility] | | | Consider combination | | CENTER - | | | therapy for serious | | LABORATORY | | | infections. | | | + + + + + | Culture | 2+ Pseudomonas | | [facility] | | | aeruginosaComment: | | [facility] | | | Consider therapy with | [...] [facility] | | | | | [facility] | | | | | CENTER - | | | | | LABORATORY | + + + + + | Gram Stain Result | 2+ Epithelial cells | | [facility] | | | | | [facility] | | | | | CENTER - [...] + | [facility] | [address] | [place] | [phone] | | [facility] | | [address] | | | - LABORATORY | | | | + + + + + | [facility] | [address] | [place] | | | [facility] | | [address] | | | - LABORATORY | | [...] | | | | [place] BURNETT MD ([id number]) | | | | | on 04/09/2018 [...] + | [facility] | [address] | [place] | [phone] | | [facility] | | [address] | | | - LABORATORY | | | | + + + + + | [facility] | [address] | [place] | | | [facility] | | [address] | | | - LABORATORY | | | | + + + + + Extra Blue Top Tube (04/08/20181743) + +-------+ + + | Component | Value | Ref Range | Performed At | + +-------+ + + | Extra Blue Top Tube | Done | | [facility] | | | | | [facility] | | | | | CENTER - | | | | | LABORATORY | + +-------+ + + + + | Specimen | + + | Blood | + + + + + + + | Performing | Address | City/State/Zipcode | Phone Number | | Organization | | | | + + + + + | [facility] | [address] | [place] | [phone] | | [facility] | | [address] | | | - LABORATORY | | | | + + + + + | [facility] | [address] | [place] | | | [facility] | | [address] | | | - LABORATORY | | | | + + + + + Extra Gold Top Tube (04/08/2018 853) + +-------+ + + | Component | Value | Ref Range | Performed At | + +-------+ + + | EGDT | Done | | [facility] | | | | | [facility] | | | | | CENTER - [...] [address] | [place] | [phone] | | [facility] | | [address] | | | - LABORATORY | | | | + + + + + | [facility] | [address] | [place] | | | [facility] | | [address] | | | - LABORATORY | | | | + + + + + B Type Natriuretic Peptide (04/08/20181741) + +-------+ + + | Component | Value | Ref Range | Performed At | + +-------+ + + | BNP | 33 | <100 pg/mL | [facility] | | | | | [facility] | | | | | CENTER - | | | | | LABORATORY | + +-------+ + + + + | Specimen | + + | Blood | + + + + + + + | Performing | Address | City/State/Zipcode | Phone Number | | Organization | | | | + + + + + | [facility] | [address] | [place], [place] | [phone] | | [facility] | | [address] | | | - LABORATORY | | | | + + + + + | [facility] | [address] | [place], [place] | | | [facility] | | [address] | | | - LABORATORY | | | | + + + + + Troponin I (04/08/20181741) + + + + + | Component | Value | Ref Range | Performed At | + + + + + | Troponin I | <0.01Comment: Reference | <0.06 ng/mL | [facility] | | | Ranges:0.00-0.06 = | [...] infarction. | | | | | [employer] | | | | | [...] + | [facility] | [address] | [place] | [phone] | | [facility] | | [address] | | | - LABORATORY | | | | + + + + + | [facility] | [address] | [place] | | | [facility] | | [address] | | | - LABORATORY | | [...] 11 | 7 - 18 mg/dL | [facility] | | | | | [facility] | | | | | CENTER - | | | | | LABORATORY | + + + + + | Creatinine, | 0.58 (L) | 0.60 - 1.30 mg/dL | [facility] | | Serum/Plasma | | | [facility] | | | | | CENTER - | | | | | LABORATORY | + + + + + | eGFR if not | >60Comment: GLOMERULAR | >=60 mL/min/1.73m2 | [facility] | | [facility] | FILTRATION | | [facility] | | | RATE,ESTIMATED mL/min | | CENTER - | | | /1.90d2Vxfh than 60 | | LABORATORY | | [...] | | an appended report. | | [facility] | | | These [...] + | [facility] | [address] | [place] | [phone] | | [facility] | | [address] | | | - LABORATORY | | | | + + + + + | [facility] | [address] | [place] | | | [facility] | | [address] | | | - LABORATORY | | [...] + | [facility] | [address] | [place], [place] | [phone] | | [facility] | | [address] | | | - LABORATORY | | | | + + + + + | [facility] | [address] | [place], [place] | | | [facility] | | [address] | | | - LABORATORY | | [...] [facility] | | | | | [facility] | | | | | CENTER [...] [facility] | | | | | [facility] | | | | | CENTER - [...] [address] | [place] | [phone] | | [facility] | | [address] | | | - LABORATORY | | | | + + + + + | [facility] | [address] | [place] | | | [facility] | | [address] | | | - LABORATORY | | [...]
--- OUTSIDE RECORDS SUMMARY | 2018-04-22 22:43 | XMS ---
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 Lizet has no Care Guidelines for this patient. [place] VISIT COUNT (12 MO.) 1 [facility] [address] [facility] [address] [facility] TOTAL 3 NOTE: Visits indicate total known visits. ED/C VISIT TRACKING (12 MO.) 04/22/2018 19:00 [facility] [place] TYPE: Emergency COMPLAINT: - COUGHING UP BLOOD 04/08/2018 17:19 [facility] DIAGNOSES: - Cough - Difficulty Breathing - Shortness of breath - Wheezing - Trouble Breathing - Acute and chronic respiratory failure, unspecified whether with hypoxia or hypercapnia - Other diseases of bronchus, not elsewhere classified - Other abnormalities of breathing - Fever (9 Weeks To 74 Years) 10[facility]10/2017 

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
== END 2018-04-22 23:19 | disposition short-term general hospital (02) ==
LOC: ED 18:59
DX: A41.9 Sepsis, unspecified organism (principal); J18.9 Pneumonia, unspecified organism; J96.10 Chronic respiratory failure, unspecified whether with hypoxia or hypercapnia; I25.2 Old myocardial infarction; Z88.8 Allergy status to other drugs, medicaments and biological substances; Z79.899 Other long term (current) drug therapy
CPT/HCPCS: 31720; 36600; 71046; 80053; 82803; 83605; 85025; 85610; 85730; 94002; 96361; 96365; 96375; 99285; J0692; J1170; J2405; J7030